=== PATIENT | female | born 1960 | race Caucasian/White ===

== ENCOUNTER 2016-07-16 09:44 | Outpatient (CLI) ==
[2016-07-16 10:07] LABS: BASOPHILS # (AUTO) 0.1 K/uL (0-0.2); BASOPHILS % (AUTO) 0.7 % (0.0-3.0); EOSINOPHILS # (AUTO) 0.3 K/ul (0.0-0.7); EOSINOPHILS % (AUTO) 3.3 % (0.0-7.0); HEMATOCRIT 39.7 % (37.0-47.0); HEMOGLOBIN 12.1 g/dl (12.0-16.0); IMMATURE GRANULOCYTE % (AUTO) 0.4 % (0.0-5.0); LYMPHOCYTES # (AUTO) 1.9 K/uL (0.60-3.4); LYMPHOCYTES % (AUTO) 23.6 (10.0-50.0); MEAN CORPUSCULAR HEMOGLOBIN 23.3 pg (27.0-31.0); MEAN CORPUSCULAR HGB CONC 30.5 (31.8-35.4); MEAN CORPUSCULAR VOLUME 76.3 fl (81.0-99.0); MONOCYTES # (AUTO) 0.5 K/uL (0.4-2.0); MONOCYTES % (AUTO) 6.5 (0-10); NEUTROPHILS # (AUTO) 5.3 K/ul (2.0-6.9); NEUTROPHILS % (AUTO) 65.5; PLATELET COUNT 440 10^3/uL (140-440); WHITE BLOOD COUNT 8.15 K/ul (4.6-10.2)
[2016-07-16 10:54] LABS: ALBUMIN 3.5 g/dL (3.4-5.0); ALBUMIN/GLOBULIN RATIO 0.88; ANION GAP 13.8; BILIRUBIN,TOTAL 0.19 mg/dL (0.00-1.20); BUN/CREATININE RATIO 12.37; CALCIUM 10.4 mg/dL (8.2-10.2); CHOL/HDL RATIO 3.3 (4.5-5.5); CREATININE 0.97 mg/dL (0.60-1.30); POTASSIUM 3.8 mmol/L (3.5-5.10); TOTAL PROTEIN 7.5 g/dL (6.4-8.2)
--- NOTE | 2016-07-16 17:18 | MRI ---
EXAM: Lumbar spine MRI without contrast. HISTORY: Back pain. COMPARISON: None. TECHNIQUE: Multiplanar, multisequence MR images were acquired of the lumbar spine without contrast. FINDINGS: The T12 vertebra is not well seen and evaluation for ribs cannot be done. For the purpos es of this dictation, the lowest five non-rib bearing vertebra are numbered L1 to L5. There is right gray curvature of the lower thoracic and lumbar spine centered at L2-3 and there is 1 cm rightward t ranslation of L2 with respect to L1, 4 mm leftward translation of L4 with respect to L3 and 3 mm lef tward translation of L5 with respect to L4. There is mild loss of the usual smooth lumbar lordosis and there is 1.5 mm retrolisthesis of L1 on L2 and L2 on L3, 2 mm degenerative anterolisthesis of L3 on L4, 4 mm anterolisthesis of L4 on L5 and 1.5 mm anterolisthesis of L5 on S1. The lumbar vertebr a are normal in height. Intrinsic bone marrow signal is mildly heterogeneous. There are ventral an d lateral osteophytes in the lower thoracic and lumbar spine. At T12-L1, there is osteophytosis wit h mild disc space narrowing, endplate irregularity and small chronic Schmorl's nodes that is greates t right laterally. At L1-2, there is osteophytosis with marked disc space narrowing, disc desiccati on and mild endplate irregularity with reactive marrow changes along the endplates. There is osteop hytosis with moderate to severe disc space narrowing that is asymmetric to the left at L2-3 with mil d left lateral degenerative endplate changes. There is disc desiccation at L3-4 and L4-5. Minor di sc space narrowing is present at both these levels and there is minor disc space narrowing right lat erally at L5-S1. Conus medullaris ends at L1-2 and has normal signal intensity. Canal diameter is developmentally narrow. The visualized liver and kidneys are unremarkable. There are no paravertebral masses. T12-L1: There is a dorsal spondylotic ridge that is asymmetric to the right with a probable small s uperimposed central disc protrusion. This minimally narrows the inferior right neural foramen. Venancio ateral hypertrophic facet arthropathy is present and there is minor left and mild to moderate right neural foraminal stenosis. There is no central canal stenosis. L1-2: There is a diffuse disc osteophyte complex and mild bilateral facet and ligamentum flavum hyp ertrophy. There is mild to moderate spinal stenosis and mild to moderate left and mild right neural foraminal stenosis. AP diameter of the thecal sac is 6.6 mm. L2-3: There is a dorsal spondylotic ridge that is asymmetric to the left which mildly effaces the v entral thecal sac and narrows the inferior left neural foramen with encroachment on the left L2 nerv e. Bilateral facet and ligamentum flavum hypertrophy is present and there is mild right and moderat e left neural foraminal stenosis. L3-4: There is anterolisthesis of L3 on L4 and moderate bilateral hypertrophic facet arthropathy an d ligamentum flavum hypertrophy. There is mild spinal stenosis and moderate bilateral foraminal leonides nosis. AP diameter of the thecal sac is 7.6 mm. L4-5: There is anterolisthesis of L4 on L5, a mild disc bulge and moderately severe bilateral hyper trophic facet arthropathy and ligamentum flavum hypertrophy. There is moderate spinal stenosis and moderate right and moderately severe left neural foraminal stenosis with encroachment on both L4 ner ves. AP diameter of the thecal sac is 6.3 mm. L5-S1: There is a small disc bulge with marginal osteophytes and mild bilateral facet arthropathy a nd ligamentum flavum hypertrophy. The thecal sac is mildly small at this level and measures 9.4 mm in AP diameter. There is moderate right neural foraminal stenosis and moderate stenosis at the entr y to the left neural foramen IMPRESSION: 1. Mild thoracolumbar dextroscoliosis with 1 cm rightward translation of L2 with respect to L1. 2. Mild L3-4 and L5-S1, mild to moderate L1-2 and moderate L4-5 spinal stenosis. 3. Mild to moderate lumbar degenerative spondylosis with 2 mm degenerative anterolisthesis of L3 on L4 and 4 mm anterolisthesis of L4 on L5. 4. Multilevel foraminal stenosis.
== END 2016-07-16 09:45 | disposition home or self-care (01) ==
LOC: RAD 09:44
PROVIDERS: ATTEND Nurse Practitioner Family
DX: M54.9 Dorsalgia, unspecified (principal); I99.9 Unspecified disorder of circulatory system; E78.2 Mixed hyperlipidemia; E11.9 Type 2 diabetes mellitus without complications
CPT/HCPCS: 36415; 80053; 80061; 83036; 84443; 85025

== ENCOUNTER 2016-07-18 12:26 | Outpatient (CLI) | END 2016-07-18 12:27 | disposition home or self-care (01) | LOC: CAR 12:26 | PROVIDERS: ATTEND Nurse Practitioner Family | DX: R06.02 Shortness of breath (principal) ==

== ENCOUNTER 2016-08-08 10:00 | Outpatient (CLI) ==
--- NOTE | 2016-08-21 08:18 | MAMMO ---
EXAM: Digital screening mammogram HISTORY: Screening mammogram COMPARISON: The outside study 07/14/2015 FINDINGS: Bilateral CC and MLO views of the breasts were performed digitally and demonstrate predom inantly fatty breast density (up to 25%). Stable well marginated nodule in the left breast is redemo nstrated. There is no abnormal nodule or calcification. There is no significant interval change. IMPRESSION: No new or suspicious nodule or calcification. Stable well marginated nodule in the lef t breast. RECOMMENDATION: Annual screening mammogram BIRADS category II: Benign findings
== END 2016-08-08 10:01 | disposition home or self-care (01) ==
LOC: RAD 10:00
PROVIDERS: ATTEND Nurse Practitioner Family
DX: Z12.31 Encounter for screening mammogram for malignant neoplasm of breast (principal); R94.6 Abnormal results of thyroid function studies; E83.52 Hypercalcemia
CPT/HCPCS: 36415; 82310; 84439; 84443

== ENCOUNTER 2016-08-08 11:18 | Outpatient (CLI) ==
[2016-08-08 15:20] LABS: CALCIUM 9.7 mg/dL (8.2-10.2)
== END 2016-08-08 11:19 | disposition home or self-care (01) ==
LOC: LAB 11:18
PROVIDERS: ATTEND Nurse Practitioner Family
DX: R94.6 Abnormal results of thyroid function studies (principal); E83.52 Hypercalcemia
CPT/HCPCS: 36415; 82310; 84439; 84443

== ENCOUNTER 2016-10-09 13:15 | Outpatient (CLI) ==
[2016-10-09 16:31] LABS: BASOPHILS # (AUTO) 0.1 K/uL (0-0.2); BASOPHILS % (AUTO) 1.1 % (0.0-3.0); EOSINOPHILS # (AUTO) 0.3 K/ul (0.0-0.7); EOSINOPHILS % (AUTO) 4.4 % (0.0-7.0); HEMOGLOBIN 11.8 g/dl (12.0-16.0); IMMATURE GRANULOCYTE % (AUTO) 0.4 % (0.0-5.0); LYMPHOCYTES # (AUTO) 1.9 K/uL (0.60-3.4); LYMPHOCYTES % (AUTO) 25.7 (10.0-50.0); MEAN CORPUSCULAR HEMOGLOBIN 21.5 pg (27.0-31.0); MEAN CORPUSCULAR HGB CONC 28.8 (31.8-35.4); MEAN CORPUSCULAR VOLUME 74.5 fl (81.0-99.0); MONOCYTES # (AUTO) 0.4 K/uL (0.4-2.0); MONOCYTES % (AUTO) 5.7 (0-10); NEUTROPHILS # (AUTO) 4.5 K/ul (2.0-6.9); NEUTROPHILS % (AUTO) 62.7; PLATELET COUNT 558 10^3/uL (140-440); WHITE BLOOD COUNT 7.23 K/ul (4.6-10.2)
[2016-10-09 17:07] LABS: ALBUMIN 3.5 g/dL (3.4-5.0); ALBUMIN/GLOBULIN RATIO 0.8; BILIRUBIN,TOTAL 0.26 mg/dL (0.00-1.20); BUN/CREATININE RATIO 11.57; CALCIUM 9.9 mg/dL (8.2-10.2); CHOL/HDL RATIO 3.4 (4.5-5.5); CREATININE 0.95 mg/dL (0.60-1.30); TOTAL PROTEIN 7.9 g/dL (6.4-8.2)
== END 2016-10-09 13:16 | disposition home or self-care (01) ==
LOC: LAB 13:15
PROVIDERS: ATTEND Emergency Medicine
DX: E11.9 Type 2 diabetes mellitus without complications (principal); E78.2 Mixed hyperlipidemia; R94.6 Abnormal results of thyroid function studies; M54.9 Dorsalgia, unspecified
CPT/HCPCS: 36415; 80053; 80061; 83036; 84443; 85025

== ENCOUNTER 2016-10-21 13:46 | Outpatient (CLI) ==
[2016-10-21 14:18] LABS: BASOPHILS # (AUTO) 0.1 K/uL (0-0.2); BASOPHILS % (AUTO) 0.8 % (0.0-3.0); EOSINOPHILS # (AUTO) 0.3 K/ul (0.0-0.7); EOSINOPHILS % (AUTO) 3.3 % (0.0-7.0); IMMATURE GRANULOCYTE % (AUTO) 0.4 % (0.0-5.0); LYMPHOCYTES # (AUTO) 2.6 K/uL (0.60-3.4); LYMPHOCYTES % (AUTO) 28.5 (10.0-50.0); MEAN CORPUSCULAR HEMOGLOBIN 21.8 pg (27.0-31.0); MEAN CORPUSCULAR HGB CONC 29.5 (31.8-35.4); MEAN CORPUSCULAR VOLUME 73.9 fl (81.0-99.0); MONOCYTES # (AUTO) 0.6 K/uL (0.4-2.0); MONOCYTES % (AUTO) 6.7 (0-10); NEUTROPHILS # (AUTO) 5.4 K/ul (2.0-6.9); NEUTROPHILS % (AUTO) 60.3; PLATELET COUNT 578 10^3/uL (140-440); RED BLOOD COUNT 5.95 10^6/ul (4.20-5.40); WHITE BLOOD COUNT 8.99 K/ul (4.6-10.2)
[2016-10-21 15:17] LABS: ALBUMIN 3.7 g/dL (3.4-5.0); ALBUMIN/GLOBULIN RATIO 0.71; ANION GAP 16.9; BILIRUBIN,TOTAL 0.19 mg/dL (0.00-1.20); BUN/CREATININE RATIO 11.34; CALCIUM 10.2 mg/dL (8.2-10.2); CHOL/HDL RATIO 3.8 (4.5-5.5); CREATININE 0.97 mg/dL (0.60-1.30); POTASSIUM 3.9 mmol/L (3.5-5.10); TOTAL PROTEIN 8.9 g/dL (6.4-8.2)
== END 2016-10-21 13:47 | disposition home or self-care (01) ==
LOC: LAB 13:46
PROVIDERS: ATTEND Nurse Practitioner Family
DX: E87.6 Hypokalemia (principal); R11.0 Nausea; I10 Essential (primary) hypertension; E11.9 Type 2 diabetes mellitus without complications; R20.0 Anesthesia of skin; G47.00 Insomnia, unspecified; M79.672 Pain in left foot; M79.671 Pain in right foot; M19.90 Unspecified osteoarthritis, unspecified site; E78.5 Hyperlipidemia, unspecified; E66.9 Obesity, unspecified; I73.9 Peripheral vascular disease, unspecified; K21.9 Gastro-esophageal reflux disease without esophagitis; Z86.718 Personal history of other venous thrombosis and embolism
CPT/HCPCS: 36415; 80053; 80061; 83036; 84443; 85025

== ENCOUNTER 2016-10-23 16:43 | Outpatient (CLI) ==
[2016-10-23 17:47] LABS: FERRITIN 13.6 ng/mL (4.63-204.00)
== END 2016-10-23 16:44 | disposition home or self-care (01) ==
LOC: LAB 16:43
PROVIDERS: ATTEND Nurse Practitioner Family
DX: D47.3 Essential (hemorrhagic) thrombocythemia (principal)
CPT/HCPCS: 36415; 82728; 83540; 83550; 84466

== ENCOUNTER 2016-10-28 16:12 | Observation (INO) ==
[2016-10-28 16:17] VITALS: BMI 50.0
--- NOTE | 2016-10-28 16:26 | ED.PDOC ---
General ED Provider: Dr. JANET ANTONIO Chief Complaint: Chest Pain Stated Complaint: 1 week; chest pain, weakness Time Seen by Physician: 16:23 Mode of Arrival: Walk-In Information Source: Patient Exam Limitations: No limitations Primary Care Provider: JIA FERRARA Nursing and Triage Documentation Reviewed and Agree: Yes Review of Systems - Review Of Systems Constitutional: Reports: Malaise, Weakness Eyes: Reports: No symptoms Respiratory: Reports: Cough Cardiac: Reports: Chest pain (heaviness approx 1 week ) GI: Reports: Abdominal pain (epigastric), Nausea : Reports: No symptoms Endocrine: Reports: Excessive sweating, Intolerance to heat All Other Systems: Reviewed and Negative Past Medical History - Past Medical History Previously Healthy: No (Numerous problems; vascular surgeries bilateral LEs) Endocrine: Reports: DM 2 Cardiovascular: Reports: Other (vascular insufficiency bilat LEs) Respiratory: Reports: None Hematological: Reports: None Gastrointestinal: Reports: None Genitourinary: Reports: None Neuro/Psych: Reports: CVA Musculoskeletal: Reports: None Cancer: Reports: Colon Last Menstrual Period: NONE - Surgical History General Surgical History: Reports: Cholecystectomy, Unknown (Colon CA; multiple LE vascular surgeries) - Family History Family History: Reports: Unknown - Social History Smoking Status: Never smoker Hx Substance Use: No Alcohol Screening: None Physical Exam - Physical Exam Appearance: Well-appearing, Obese Eyes: MILLIE, EOMI ENT: Nose normal, Oropharynx normal Neck: Supple Respiratory: Airway patent, Breath sounds clear, Breath sounds equal, Respirations nonlabored Cardiovascular: RRR, Pulses normal GI/: Soft, Bowel sounds normal, Tender (epigastric region only; no reboung) Musculoskeletal: Normal strength, ROM intact Skin: Warm, Dry Neurological: Sensation intact, Motor intact, Alert, Oriented Psychiatric: Affect appropriate, Mood appropriate Interpretation - EKG Interpretation Time of EKG #1: 16:25 Rate: Normal Rhythm: Sinus Ectopy: None Interpretation: RBBB; no apparent acute changes Critical Care Note - Critical Care Note Total Time (mins): 40 Course - Course Hematology/Chemistry: 10/28/16 16:30 10/28/16 16:30 Orders, Labs, Meds: Lab Review 10/28/16 16:30 WBC 8.56 RBC 5.54 H Hgb 12.1 Hct 40.8 MCV 73.6 L MCH 21.8 L MCHC 29.7 L RDW Coeff of Cathy 17.7 H Plt Count 543 H Immature Gran % (Auto) 0.4 Neut % (Auto) 54.9 Lymph % (Auto) 32.2 Kay % (Auto) 7.4 Eos % (Auto) 4.3 Baso % (Auto) 0.8 Immature Gran # (Auto) 0.0 Neut # 4.7 Lymph # 2.8 Kay # 0.6 Eos # 0.4 Baso # 0.1 D-Dimer (Manual) 465.10 Sodium 142 Potassium 3.3 L Chloride 107 Carbon Dioxide 20 L Anion Gap 18.3 BUN 10 Creatinine 1.07 Estimated GFR (MDRD) 53.00 BUN/Creatinine Ratio 9.34 Glucose 145 H Calcium 9.3 Total Bilirubin 0.18 AST 19 ALT 18 Alkaline Phosphatase 86 Troponin I < 0.0100 Total Protein 8.2 Albumin 3.5 Globulin 4.7 Albumin/Globulin Ratio 0.74 TSH 0.711 Orders Category Date Time Status EKG-(IP & OP ONLY) Stat CARDIO 10/28/16 17:40 Completed INTAKE & OUTPUT Q8HR CARE 10/28/16 18:04 Active CBC W/ AUTO DIFF Stat LAB 10/28/16 16:30 Completed COMPREHENSIVE METABOLIC PANEL Stat LAB 10/28/16 16:30 Completed D-DIMER Stat LAB 10/28/16 16:30 Completed THYROID STIMULATING HORMONE Stat LAB 10/28/16 16:30 Completed TROPONIN I Stat LAB 10/28/16 16:30 Completed Albuterol Sulfate [Proair Hfa] MEDS 10/28/16 18:30 Ordered DOSE puff IH PRN Canagliflozin [Invokana] MEDS 10/29/16 09:00 Ordered 300 mg PO DAILY Cilostazol [Pletal] MEDS 10/28/16 21:00 Ordered 100 mg PO BID Dicyclomine HCl [Bentyl] MEDS 10/28/16 21:00 Ordered 10 mg PO TID Escitalopram Oxalate [Escitalopram Oxalate] MEDS 10/29/16 09:00 Ordered 20 mg PO DAILY Esomeprazole Magnesium [Nexium] MEDS 10/29/16 09:00 Ordered 40 mg PO DAILY Fenofibrate [Triglide] MEDS 10/29/16 09:00 Ordered 160 mg PO DAILY Gabapentin [Gabapentin] MEDS 10/28/16 21:00 Ordered 600 mg PO TID Hydrocodone Bit/Acetaminophen [[place] 10-325] MEDS 10/28/16 21:00 Ordered DOSE tab PO BID Insulin Degludec [Tresiba Flextouch U-200] MEDS 10/29/16 09:00 Ordered 20 unit SQ DAILY Metformin HCl [Glucophage] MEDS 10/28/16 21:00 Ordered 500 mg PO BID Pentoxifylline [Trental] MEDS 10/28/16 21:00 Ordered 400 mg PO Q8HR Promethazine HCl [Phenergan Tab] MEDS 10/28/16 18:30 Ordered 25 mg PO every6 hours PRN Rivaroxaban [Xarelto] MEDS 10/29/16 09:00 Ordered 20 mg PO DAILY Ropinirole HCl [Ropinirole HCl] MEDS 10/28/16 21:00 Ordered 0.5 mg PO BEDTIME Simvastatin [Simvastatin] MEDS 10/28/16 21:00 Ordered 20 mg PO BEDTIME RESUSCITATION STATUS Routine OTHERS 10/28/16 17:58 Ordered CHEST, 1V AP ONLY Stat RADS 10/28/16 16:26 Completed Medications Generic Name Dose Route Start Last Admin Trade Name Freq PRN Reason Stop Dose Admin Acetaminophen/Hydrocodone Bitart tab 10/28/16 21:00 [place] 10-325 PO BID OLIVER Albuterol Sulfate puff 10/28/16 18:30 Proair Hfa IH PRN OLIVER Cilostazol 100 mg 10/28/16 21:00 Pletal PO BID OLIVER Dicyclomine HCl 10 mg 10/28/16 21:00 Bentyl PO TID [facility] Fenofibrate 160 mg 10/29/16 09:00 Triglide PO DAILY OLIVER Metformin HCl 500 mg 10/28/16 21:00 Glucophage PO BID OLIVER Non-Formulary Medication 20 mg 10/29/16 09:00 Escitalopram Oxalate [Escitalopram Oxalate] PO DAILY OLIVER Non-Formulary Medication 40 mg 10/29/16 09:00 Esomeprazole Magnesium [Nexium] PO DAILY OLIVER Non-Formulary Medication 600 mg 10/28/16 21:00 Gabapentin [Gabapentin] PO TID OLIVER Non-Formulary Medication 20 mg 10/29/16 09:00 Rivaroxaban [Xarelto] PO DAILY OLIVER Non-Formulary Medication 0.5 mg 10/28/16 21:00 Ropinirole Hcl [Ropinirole Hcl] PO BEDTIME OLIVER Non-Formulary Medication 20 mg 10/28/16 21:00 Simvastatin [Simvastatin] PO BEDTIME OLIVER Non-Formulary Medication 300 mg 10/29/16 09:00 Canagliflozin [Invokana] PO DAILY OLIVER Non-Formulary Medication 20 unit 10/29/16 09:00 Insulin Degludec [Tresiba Flextouch U-200] SQ DAILY OLIVER Pentoxifylline 400 mg 10/28/16 21:00 Trental PO Q8HR OLIVER Promethazine HCl 25 mg 10/28/16 18:30 Phenergan Tab PO every6 hours PRN OLIVER Vital Signs: Temp Pulse Resp BP Pulse Ox 10/28/16 16:12 98.9 F 127 H 22 176/84 H 92 L TATE Risk Score TATE Risk Score: Risk Score Odds of by 30D 0 0.1 (0.1-0.2) 1 0.3 (0.2-0.3) 2 0.4 (0.3-0.5) 3 0.7 (0.6-0.9) 4 1.2 (1.0-1.5) 5 2.2 (1.9-2.6) 6 3.0 (2.5-3.6) 7 4.8 (3.8-6.1) Departure - Departure Time of Disposition: 18:13 Disposition: PLACED OBSERVATION Discharge Problem: Chest pain Condition: Stable Pt referred to PMD for follow-up: Yes Allergies/Adverse Reactions: Allergies Penicillins Allergy (Severe, Verified 10/28/16 16:17) throat swells Patient will notify drugstore Home Medications: Ambulatory Orders Albuterol Sulfate [Proair Hfa] 8.5 gm IH PRN 07/15/16 Diphenhydramine HCl [Allergy Relief] 25 mg PO PRN 07/15/16 Hydrocodone/Acetaminophen [Hydrocodon-Acetaminophn 10-325] 1 each PO BID Insulin Degludec [Tresiba Flextouch U-200] 20 unit SQ DAILY 10/28/16
[2016-10-28 16:36] LABS: BASOPHILS # (AUTO) 0.1 K/uL (0-0.2); BASOPHILS % (AUTO) 0.8 % (0.0-3.0); EOSINOPHILS # (AUTO) 0.4 K/ul (0.0-0.7); EOSINOPHILS % (AUTO) 4.3 % (0.0-7.0); HEMATOCRIT 40.8 % (37.0-47.0); HEMOGLOBIN 12.1 g/dl (12.0-16.0); IMMATURE GRANULOCYTE % (AUTO) 0.4 % (0.0-5.0); LYMPHOCYTES # (AUTO) 2.8 K/uL (0.60-3.4); LYMPHOCYTES % (AUTO) 32.2 (10.0-50.0); MEAN CORPUSCULAR HEMOGLOBIN 21.8 pg (27.0-31.0); MEAN CORPUSCULAR HGB CONC 29.7 (31.8-35.4); MEAN CORPUSCULAR VOLUME 73.6 fl (81.0-99.0); MONOCYTES # (AUTO) 0.6 K/uL (0.4-2.0); MONOCYTES % (AUTO) 7.4 (0-10); NEUTROPHILS # (AUTO) 4.7 K/ul (2.0-6.9); NEUTROPHILS % (AUTO) 54.9; PLATELET COUNT 543 10^3/uL (140-440); RED BLOOD COUNT 5.54 10^6/ul (4.20-5.40); WHITE BLOOD COUNT 8.56 K/ul (4.6-10.2)
--- NOTE | 2016-10-28 16:49 | DI ---
EXAM: One-view chest HISTORY: Chest pain TECHNIQUE: Single frontal view the chest was obtained. FINDINGS: The heart is normal size. Lungs are clear. Low lung volumes are seen. The pulmonary va sculature appears normal. Postoperative changes of fusion are seen within the lower cervical spine. IMPRESSION: No active cardiopulmonary disease.
[2016-10-28 17:05] LABS: ALANINE AMINOTRANSFERASE 18 U/L (12-78); ALBUMIN 3.5 g/dL (3.4-5.0); ALBUMIN/GLOBULIN RATIO 0.74; ALKALINE PHOSPHATASE 86 U/L (42-98); ANION GAP 18.3; ASPARTATE AMINO TRANSFERASE 19 U/L (15-37); BILIRUBIN,TOTAL 0.18 mg/dL (0.00-1.20); BLOOD UREA NITROGEN 10 mg/dL (7-18); BUN/CREATININE RATIO 9.34; CALCIUM 9.3 mg/dL (8.2-10.2); CARBON DIOXIDE 20 mmol/L (21-32); CHLORIDE 107 mmol/L (98-107); CREATININE 1.07 mg/dL (0.60-1.30); GLUCOSE 145 mg/dL (70-110); POTASSIUM 3.3 mmol/L (3.5-5.10); SODIUM 142 mmol/L (136-145); TOTAL PROTEIN 8.2 g/dL (6.4-8.2)
[2016-10-28] MEDS ORDERED: PROAIR HFA IH SCH (18:30)
[2016-10-28] MEDS ORDERED: PHENERGAN TAB PO SCH (18:30)
[2016-10-28] MEDS ORDERED: NORCO 10-325 PO SCH (21:00)
[2016-10-28] MEDS ORDERED: NON-FORMULARY MEDICATION (Gabapentin [Gabapentin] 600 MG) PO SCH (21:00)
[2016-10-28] MEDS ORDERED: TRENTAL PO SCH (21:00)
[2016-10-28] MEDS ORDERED: PLETAL PO SCH (21:00)
[2016-10-28] MEDS ORDERED: BENTYL PO SCH (21:00)
[2016-10-28] MEDS ORDERED: GLUCOPHAGE PO SCH (21:00)
[2016-10-28] MEDS ORDERED: ROPINIROLE HCL 0.5 MG PO SCH (21:00)
[2016-10-28] MEDS ORDERED: NON-FORMULARY MEDICATION (Simvastatin [Simvastatin] 20 MG) PO SCH ×22 (21:00)
[2016-10-28] MEDS ORDERED: NON-FORMULARY MEDICATION (Albuterol Sulfate [Proair Hfa] 2 PUFF) IH PRN ×22 (22:04)
[2016-10-28] MEDS ORDERED: DIPHENHYDRAMINE HCL 25 MG PO PRN (22:04)
[2016-10-28] MEDS ORDERED: PROMETHAZINE HCL 25 MG PO PRN (22:04)
[2016-10-28] MEDS ORDERED: HYDROCODONE BIT PO SCH (22:10)
[2016-10-28] MEDS ORDERED: ACETAMINOPHEN PO SCH ×2 (22:10→22:30)
[2016-10-28] MEDS ORDERED: HYDROCODONE PO SCH (22:30)
[2016-10-28] MEDS ORDERED: [UNRECOGNIZED DRUG - OTHER] PO SCH (22:30)
[2016-10-29] MEDS ORDERED: PENTOXIFYLLINE 400 MG PO SCH (05:00)
[2016-10-29] MEDS ORDERED: GI COCKTAIL PO STA (08:06)
[2016-10-29] MEDS ORDERED: ZOFRAN 4 MG/2 ML IVP PRN (08:08)
[2016-10-29 08:37] LABS: CHOL/HDL RATIO 3.4 (4.5-5.5)
[2016-10-29] MEDS: CARAFATE PO SCH ×4 (08:37→22:34)
[2016-10-29] MEDS: NON-FORMULARY MEDICATION (Canagliflozin [Invokana] 300 MG) PO SCH (08:39)
[2016-10-29] MEDS: FENOFIBRATE 160 MG PO SCH (08:40)
[2016-10-29] MEDS: NON-FORMULARY MEDICATION (Gabapentin [Gabapentin] 600 MG) PO SCH ×3 (08:40→22:35)
[2016-10-29] MEDS: NON-FORMULARY MEDICATION (Escitalopram Oxalate [Lexapro] 20 MG) PO SCH ×22 (08:41)
[2016-10-29] MEDS: NON-FORMULARY MEDICATION (Metformin Hcl [Metformin Hcl] 500 MG) PO SCH ×2 (08:41→17:09)
[2016-10-29] MEDS: DICYCLOMINE HCL 10 MG PO SCH ×3 (08:41→22:36)
[2016-10-29] MEDS: NON-FORMULARY MEDICATION (Esomeprazole Magnesium [Nexium] 40 MG) PO SCH ×22 (08:42)
[2016-10-29] MEDS: NON-FORMULARY MEDICATION (Rivaroxaban [Xarelto] 20 MG) PO SCH (08:42)
[2016-10-29] MEDS: [UNRECOGNIZED DRUG - OTHER] PO SCH ×2 (08:43→22:35)
[2016-10-29] MEDS: CILOSTAZOL 100 MG PO SCH ×2 (08:43→22:36)
[2016-10-29] MEDS: HYDROCODONE PO SCH ×2 (08:43→22:35)
[2016-10-29] MEDS: INSULIN DEGLUDEC 25 UNIT SQ SCH (08:43)
[2016-10-29] MEDS: ACETAMINOPHEN PO SCH ×2 (08:43→22:35)
[2016-10-29] MEDS ORDERED: TRIGLIDE PO SCH (09:00)
[2016-10-29] MEDS ORDERED: INSULIN DEGLUDEC 20 UNIT SQ SCH (09:00)
[2016-10-29] MEDS ORDERED: NON-FORMULARY MEDICATION (Esomeprazole Magnesium [Nexium] 40 MG) PO SCH ×22 (09:00)
[2016-10-29] MEDS ORDERED: NON-FORMULARY MEDICATION (Canagliflozin [Invokana] 300 MG) PO SCH (09:00)
[2016-10-29] MEDS ORDERED: NON-FORMULARY MEDICATION (Escitalopram Oxalate [Escitalopram Oxalate] 20 MG) PO SCH (09:00)
[2016-10-29] MEDS ORDERED: NON-FORMULARY MEDICATION (Rivaroxaban [Xarelto] 20 MG) PO SCH (09:00)
[2016-10-29] MEDS ORDERED: MORPHINE 2 MG/ML SYRINGE IVP STA (10:27)
[2016-10-29 11:05] LABS: CREATINE KINASE 75 U/L
[2016-10-29] MEDS ORDERED: POTASSIUM CHL 10% ORAL SOL PO STA (11:30)
[2016-10-29] MEDS: PENTOXIFYLLINE 400 MG PO SCH ×2 (12:10→22:37)
[2016-10-29] MEDS ORDERED: BENADRYL ONE (19:13)
[2016-10-29] MEDS ORDERED: NON-FORMULARY MEDICATION (Simvastatin [Simvastatin] 20 MG) PO SCH ×22 (21:00)
[2016-10-29] MEDS ORDERED: NON-FORMULARY MEDICATION (Ropinirole Hcl [Requip] 0.5 MG) PO SCH (21:00)
[2016-10-29] MEDS ORDERED: HYDROCODONE BIT PO SCH (22:04)
[2016-10-29] MEDS ORDERED: ACETAMINOPHEN PO SCH (22:04)
[2016-10-30] MEDS: PENTOXIFYLLINE 400 MG PO SCH ×2 (04:52→12:01)
[2016-10-30] MEDS: CARAFATE PO SCH ×2 (05:37→10:15)
[2016-10-30] MEDS: NON-FORMULARY MEDICATION (Esomeprazole Magnesium [Nexium] 40 MG) PO SCH ×22 (05:40)
[2016-10-30] MEDS ORDERED: ATROPINE SULFATE PFS ONE (07:10)
[2016-10-30] MEDS ORDERED: DOBUTAMINE 250 ML IV ONE (07:10)
[2016-10-30 07:16] LABS: BASOPHILS # (AUTO) 0.1 K/uL (0-0.2); BASOPHILS % (AUTO) 0.9 % (0.0-3.0); EOSINOPHILS # (AUTO) 0.3 K/ul (0.0-0.7); EOSINOPHILS % (AUTO) 4.7 % (0.0-7.0); HEMATOCRIT 40.6 % (37.0-47.0); HEMOGLOBIN 11.8 g/dl (12.0-16.0); IMMATURE GRANULOCYTE % (AUTO) 0.6 % (0.0-5.0); LYMPHOCYTES # (AUTO) 2.2 K/uL (0.60-3.4); LYMPHOCYTES % (AUTO) 31.1 (10.0-50.0); MEAN CORPUSCULAR HEMOGLOBIN 21.7 pg (27.0-31.0); MEAN CORPUSCULAR HGB CONC 29.1 (31.8-35.4); MEAN CORPUSCULAR VOLUME 74.6 fl (81.0-99.0); MONOCYTES # (AUTO) 0.5 K/uL (0.4-2.0); MONOCYTES % (AUTO) 7.2 (0-10); NEUTROPHILS # (AUTO) 3.9 K/ul (2.0-6.9); NEUTROPHILS % (AUTO) 55.5; PLATELET COUNT 477 10^3/uL (140-440); RED BLOOD COUNT 5.44 10^6/ul (4.20-5.40); WHITE BLOOD COUNT 7.05 K/ul (4.6-10.2)
[2016-10-30 07:30] LABS: ALBUMIN 3.5 g/dL (3.4-5.0); ALBUMIN/GLOBULIN RATIO 0.83; ANION GAP 15.9; BILIRUBIN,TOTAL 0.23 mg/dL (0.00-1.20); BUN/CREATININE RATIO 11.57; CALCIUM 9.2 mg/dL (8.2-10.2); CREATININE 0.95 mg/dL (0.60-1.30); POTASSIUM 3.9 mmol/L (3.5-5.10); TOTAL PROTEIN 7.7 g/dL (6.4-8.2)
--- NOTE | 2016-10-30 10:03 | NM ---
EXAM: Myocardial perfusion imaging HISTORY: Chest pain COMPARISON: None. TECHNIQUE: Patient was injected 4 mCi of thallium 201 chloride intravenously while at rest. SPECT i maging of the heart was acquired. Patient was stressed using dobutamine protocol and injected 25.8 mCi of Tc99m Sestamibi intravenously. Another SPECT imaging of the heart was acquired. Gated cardi ac study was also performed. FINDINGS: Post stress images show normal left ventricular cavity size. Radioisotope distribution is homogeneous in the left ventricle myocardium. No evidence of dobutamine-induced reversible ischemi a. No fixed defect is seen to suggest myocardial infarction. Left ventricular ejection fraction is 60% and wall motion is normal. IMPRESSION: 1. SPECT myocardial imaging at stress and rest is normal. 2. Normal cardiac systolic function. 3. Normal wall motion
--- NOTE | 2016-10-30 10:08 | DOBSTECHST ---
Date of Test: 10/30/16 Ordering Physician: GRUPO TEAGUE Reason for Examination: CHEST PAIN Current Medications: XARELTO, TRIGLIDE, LEXAPRO, PLETAL, PROAIR Height: 66" Weight: 310 LBS Target Heart Rate: 139/164 ST Segment Stage Time HR BPM BP mmhg Rhythm +/- Up Down Comments/Symptoms Control Sitting 87 140/80 SR X NONE Dobutamine 250mg/D5W 5cmg/KG/mn 10cmg/KG/mn 3" 114 150/75 SR X NONE 15cmg/KG/mn 1:14 141 SR X NONE 20cmg/KG/mn 25cmg/KG/mn 30cmg/KG/mn 35cmg/KG/mn 40cmg/KG/mn Time: 2" HR B/P Time: 6" HR B/P Time: 9" HR B/P Recovery 127 130/70 Recovery 110 130/75 Recovery 100 Total Time: 4:14 Maximum Heart Rate Reached: 141 __ Interpretation: 1. NO EVIDENCE OF ISCHEMIA BY ST-T WAVE 2. NO CHEST PAIN OR DISCOMFORT NORMAL LEFT VENTRICULAR CONTRACTILITY--RESTING AND WITH DOBUTAMINE INFUSION THALLIUM REPORT [facility] FOLLOW [facility]
[2016-10-30] MEDS: NON-FORMULARY MEDICATION (Metformin Hcl [Metformin Hcl] 500 MG) PO SCH (10:10)
[2016-10-30] MEDS: NON-FORMULARY MEDICATION (Canagliflozin [Invokana] 300 MG) PO SCH (10:12)
[2016-10-30] MEDS: NON-FORMULARY MEDICATION (Escitalopram Oxalate [Lexapro] 20 MG) PO SCH ×22 (10:13)
[2016-10-30] MEDS: DICYCLOMINE HCL 10 MG PO SCH (10:13)
[2016-10-30] MEDS: CILOSTAZOL 100 MG PO SCH (10:13)
[2016-10-30] MEDS: NON-FORMULARY MEDICATION (Rivaroxaban [Xarelto] 20 MG) PO SCH (10:14)
[2016-10-30] MEDS: NON-FORMULARY MEDICATION (Gabapentin [Gabapentin] 600 MG) PO SCH (10:14)
[2016-10-30] MEDS: [UNRECOGNIZED DRUG - OTHER] PO SCH (10:14)
[2016-10-30] MEDS: ACETAMINOPHEN PO SCH (10:14)
[2016-10-30] MEDS: FENOFIBRATE 160 MG PO SCH (10:14)
[2016-10-30] MEDS: HYDROCODONE PO SCH (10:14)
[2016-10-30] MEDS: INSULIN DEGLUDEC 25 UNIT SQ SCH (10:15)
--- NOTE | 2016-10-30 10:24 | CONS ---
DATE OF CONSULTATION: 10/29/16 REASON FOR CONSULTATION: Chest pain HISTORY OF PRESENT ILLNESS: The patient is a 56 year old white female admitted with mid substernal chest pain, nausea off and on for past couple of days. She described discomfort as more like a heaviness. It comes at any time and leaves. Non-exertional at times she has heart palpitations. She gives history of having chemical stress test in the past but doesn't remember when maybe a couple of years ago which was reported as normal and very likely done in one of the [facility]. REVIEW OF SYSTEMS: CONSTITUTIONAL: No night sweats. Fatigue with minimal exertion. No fever or chills. HEENT: Eyes: No visual changes. No eye pain. No eye discharge. ENT: No runny nose. No epistaxis. No sinus pain. No sore throat. No odynophagia. No ear pain. No congestion. RESPIRATORY: No cough, no congestion. No hemoptysis. CARDIOVASCULAR: No angina symptoms. No CHF symptoms. No atypical chest pain for CAD. No palpitations. No shortness of breath. Chest pain as described above. Requires two pillows for respiratory comfort. GASTROINTESTINAL: No abdominal pain. No nausea or vomiting. No diarrhea or constipation. No hematemesis. No hematochezia. GENITOURINARY: No urgency. No frequency. No dysuria. No hematuria. No obstructive symptoms. No discharge. No pain. No significant abnormal bleeding. MUSCULOSKELETAL: No musculoskeletal pain. No joint swelling. Generalized osteoarthritis pain. NEUROLOGICAL: Headache. No neck pain. No syncope. No seizures. No dizziness. PSYCHIATRIC: Not anxious. No depression. No suicidal thoughts. No homicidal thoughts. SKIN: No rash. No lesions. No wounds. Warm. Right neck , right knee and Abdomen wounds. ENDOCRINE: No unexplained weight loss. No weight gain. HEMATOLOGIC/LYMPHATIC: No anemia. No purpura. No petechiae. No prolonged or excessive bleeding. No palpable lymph nodes. MEDICATIONS: Hydrocodone 10-325mg twice a day Tresiba 25 unit SUBCUT daily Requip 0.5mg PO daily Invokana 300mg PO daily Nexium 40mg PO QAM Xarelto 20mg PO daily Fenofibrate 160mg PO daily Pletal 400mg PO Q 8 hours Metformin 500mg twice day Gabapentin 600mg PO three times a day ProAir HFA two puffs Q 4 hours Promethazine 25mg Q 6 hours ALLERGIES: Penicillins PAST MEDICAL HISTORY/PAST SURGICAL HISTORY: Vascular insufficiency with status post multiple surgeries on both lower extremities by Dr. Parks, scar of surgery is present in both legs Morbid obesity Sleep apnea Reflux disease Dyslipidemia Neuropathy GERD Diabetes Mellitus, type 2 Anxiety Cholecystectomy C of the colon Non-compliance SOCIAL/PERSONAL/FAMILY HISTORY: The patient is single. Non-smoker, Drinks occasionally and does all activity of daily living. Family History: Mother 04-30 CVA, Diabetes mellitus, hypertension and coronary artery disease. Grandfather Coronary artery disease and Brother Diabetes Mellitus. PHYSICAL EXAMINATION: GENERAL: The patient is oriented to time, place and person VITAL SIGNS: Temperature 98, pulse 83,. respiratory rate 122/65 and oxygen saturation 94%. Weighs more than 300 pounds. 5'6 so BMI is more than 50. HEENT: Head normocephalic, atraumatic. Eyes: Extraocular muscles are intact. Pupils are equal, round and reactive to light and accommodation. Ears: No lesions. Nose appeared normal. Throat: No exudate or erythema. NECK: Supple. No JVP, no carotid bruit. No lymphadenopathy or thyromegaly. LUNGS: Decreased breath sounds but Clear to auscultation. Percussion note normal. Chest symmetrical. HEART: S1, S2, no S3. Grade I to II/ systolic murmurs. No cyanosis or clubbing. No ascites. Pulses: Dorsalis pedis and posterior tibial pulses +1 to +2 both sides. PMI not palpable on auscultation. ABDOMEN: Soft. Nontender. Bowel sounds active. No CVA tenderness. No mass felt. EXTREMITIES: Trace edema. Full range of motion of all extremities, equal. Tibial pulse on the right side unable to feel any pulse on the left but both extremities are warm. Scars from the surgeries noted medially on both lower extremities. NEUROLOGIC: No focal deficit. Cranial nerves II through XII are grossly intact. No headache, no double vision or headache. SKIN: Not dry. Intact. Turgor - normal. LYMPHATIC: No palpable lymph nodes/no lymphedema. MUSCULOSKELETAL: Normal joints with no swelling. Muscle tone is normal. LABS: Chest x-ray no active cardiopulmonary disease. Cardiac markers x1 are within normal limit. WBC 8.56, hgb 12.1, hct 40.8 and plt count 543. Sodium 142, potassium 3.3, chloride 107, bicarb 20, BUN 10, GFR 53, creatinine 1.07 and glucose 145. ASSESSMENT: 1. Chest pain, etiology unknown with multiple coronary artery disease risk factors like Morbid obesity, sedentary lifestyle. 2. History of Atherosclerotic disease 3. Diabetes Mellitus 4. Hypertension 5. Dyslipidemia 6. Family History of heart disease 7. Peripheral arterial disease RECOMMENDATION: 1. Will do echocardiogram to evaluated LV function 2. Continue Telemetry 3. Continue serial EKG 4. Continue to monitor cardiac markers 5. Counseling for weight loss done to the patient 6. The patient's lipid profile is acceptable 7. A1c is 6.5 which is acceptable. 8. Mostly agreed with most of the medications at present time. 9. Will do Dobutamine Stress Echo Sestamibi in the morning 10. The patient's EKG is sinus rhythm and no acute changes 11. Telemetry strips are sinus rhythm, no ST-T wave changes 12. Medical condition stable Will follow. Thanks for referral. GEOFFREY
[2016-10-30 10:57] VITALS: BP 141/97; TEMP 98.1
--- NOTE | 2016-10-30 13:41 | CONS ---
DATE OF SERVICE: 10/30/16 CONSULT FOLLOWUP SUBJECTIVE: The patient is a 56 year old white female seen on consultation for chest pain. Today the patient doesn't have any chest pain. REVIEW OF SYSTEMS: CONSTITUTIONAL: No night sweats. No fatigue, malaise, lethargy. No fever or chills. HEENT: Eyes: No visual changes. No eye pain. No eye discharge. ENT: No runny nose. No epistaxis. No sinus pain. No sore throat. No odynophagia. No ear pain. No congestion. RESPIRATORY: No cough, no congestion. No hemoptysis. CARDIOVASCULAR: No angina symptoms. No CHF symptoms. No atypical chest pain for CAD. No palpitations. No shortness of breath. GASTROINTESTINAL: No abdominal pain. No nausea or vomiting. No diarrhea or constipation. No hematemesis. No hematochezia. GENITOURINARY: No urgency. No frequency. No dysuria. No hematuria. No obstructive symptoms. No discharge. No pain. No significant abnormal bleeding. MUSCULOSKELETAL: No musculoskeletal pain. No joint swelling. No arthritis. NEUROLOGICAL: No headache. No neck pain. No syncope. No seizures. No dizziness. PSYCHIATRIC: Not anxious. No depression. No suicidal thoughts. No homicidal thoughts. SKIN: No rash. No lesions. No wounds. ENDOCRINE: No unexplained weight loss. No weight gain. HEMATOLOGIC/LYMPHATIC: No anemia. No purpura. No petechiae. No prolonged or excessive bleeding. No palpable lymph nodes. PHYSICAL EXAMINATION: GENERAL: The patient is oriented to time, place and person. VITAL SIGNS: Temperature 98, pulse 86, respiratory rate 16, blood pressure 140/ 85 and pulse ox 93%. HEENT: Head normocephalic, atraumatic. Eyes: Extraocular muscles are intact. Pupils are equal, round and reactive to light and accommodation. Ears: No lesions. Nose appeared normal. Throat: No exudate or erythema. NECK: Supple. No JVD, no carotid bruit. No lymphadenopathy or thyromegaly. LUNGS: Decreased breath sounds but clear to auscultation. Percussion note normal. Chest symmetrical. HEART: S1, S2, no S3. Grade II/ systolic murmurs. No cyanosis or clubbing. No ascites. Pulses: Dorsalis pedis and posterior tibial pulses +1 to +2 both sides. ABDOMEN: Soft. Nontender. Bowel sounds active. No CVA tenderness. No mass felt. EXTREMITIES: No edema. Full range of motion of all extremities, equal. NEUROLOGIC: No focal deficit. Cranial nerves II through XII are grossly intact. No headache, no double vision or headache. SKIN: Not dry. Intact. Turgor - normal. LYMPHATIC: No palpable lymph nodes/no lymphedema. MUSCULOSKELETAL: Normal joints with no swelling. Muscle tone is normal. LABS: Hgb 12.1, hct 40m, WBC 8,500 normal differential, creatinine 1, BUN 10, Potassium 3.3, TSH normal. EKG sinus rhythm no acute changes, cardiac markers are negative. Telemetry strips are examined sinus rhythm, No ST-T wave changes. Echocardiogram done LVH and normal LV contractility and normal valves. Dobutamine Stress echo negative for any ischemia. The patient had a thallium scan the report pending. ASSESSMENT: 1. Chest pain, etiology unknown so far no evidence of any acute marker event. Thallium report pending 2. Massive obesity 3. Severe peripheral arterial disease, strong family history of heart disease 4. Diabetes Mellitus 5. Dyslipidemia RECOMMENDATIONS: 1. Agreed with the whole list of medications 2. Very well managed 3. Non-HDL is less than 100 and that should be the goal 4. The patient's A1c is 6.5 acceptable 5. Counseling for weight loss diet done 6. Depending upon patient's Thallium report patient may or may not be a candidate for cardiac rehab Thanks for referral. Will follow. ADDENDUM: The patient had Dobutamine Stress Echo Thallium. Thallium scan was reported as no reservable ischemia, normal LV contractility. The patient's Dobutamine Stress echo was negative for ischemia also. The patient was explained about these finding. She was instructed that this test would be practically good almost 9 out of 10 times that times it maybe falsely negative. So if she continues to have pain, chest tightness or chest discomfort to go to the emergency room. GEOFFREY
--- NOTE | 2016-10-31 13:40 | ECHO2D ---
Date of Exam: 10/30/16 Ordering Physician: GRUPO BRAUN Reason for Echo: CHEST PAIN, PAD M-Mode Normal Adult Results LV Dimensions Normal Adult Results AoV Opening excursions >1.6 >1.6 LVEDD-base- 3.5-5.8 4.5 Ao root dimensions 2.0-3.7 3.6 LVESD-base- 3.1-4.6 L. Atrium dimensions 1.9-3.8 4.8 Post. Wall thickness 0.8-1.1 1.2 IV septum (thickness) 0.7-1.2 1.2 Post. Wall excursion 0.72-1.3 NORMAL Septal motion NORMAL Systolic motion R. Ventricular cavity 1.5-2.0 NORMAL LVEF 60% 61% Paradoxical septal wall motion NORMAL 2-D : ENLARGED LEFT ATRIAL CAVITY--NORMAL VALVES--NORMAL LEFT VENTRICULAR CONTRACTILITY--NO EFFUSION, NO THROMBUS, NORMAL LEFT VENTRICLE SIZE M-MODE: MV: NORMAL AV: NORMAL TV: NORMAL PV: CHAMBER SIZE: ENLARGED LEFT ATRIAL CAVITY WALL MOTION: NORMAL PERICARDIUM: NORMAL INTERPRETATION: 1. ENLARGED LEFT ATRIAL CAVITY WITH LEFT VENTRICULAR HYPERTROPHY 2. NORMAL LEFT VENTRICULAR CONTRACTILITY 3. NORMAL VALVES MTDD
--- NOTE | 2016-10-31 13:49 | ECHOSTRESS ---
Date of Exam: 10/30/16 Ordering Physician: [facility] Reason for Echo: CHEST PAIN, CAD, DOBUTAMINE STRESS --NO ISCHEMIA M-Mode Normal Adult Results LV Dimensions Normal Adult Results AoV Opening excursions >1.6 LVEDD-base- 3.5-5.8 Ao root dimensions 2.0-3.7 LVESD-base- 3.1-4.6 L. Atrium dimensions 1.9-3.8 Post. Wall thickness 0.8-1.1 IV septum (thickness) 0.7-1.2 Post. Wall excursion 0.72-1.3 Septal motion Systolic motion R. Ventricular cavity 1.5-2.0 LVEF 60% Paradoxical septal wall motion 2-D: NORMAL LEFT VENTRICULAR CONTRACTILITY--RESTING AND WITH DOBUTAMINE INFUSION M-MODE: MV: AV: TV: PV: CHAMBER SIZE: WALL MOTION: NORMAL LEFT VENTRICULAR CONTRACTILITY--RESTING AND WITH DOBUTAMINE INFUSION PERICARDIUM: INTERPRETATION: 1. NORMAL LEFT VENTRICULAR CONTRACTILITY--RESTING AND WITH DOBUTAMINE INFUSION MTDD
--- NOTE | 2016-11-04 12:36 | SSS ---
DATE OF SERVICE: 10/30/16 REASON FOR ADMISSION: The patient was placed in observation 10/28/16 because of chest pain, rule out acute coronary status. HISTORY OF PRESENT ILLNESS: The patient complained of midsternal chest pain for one week accompanied by shortness of breath, occasional diaphoresis, nausea without emesis and headache. The patient describes the pain as heaviness without radiation at rest or with exertion. REVIEW OF SYSTEMS: CONSTITUTIONAL: No night sweats. No fatigue, malaise, lethargy. No fever or chills. HEENT: Headache. Eyes: No visual changes. No eye pain. No eye discharge. ENT: No runny nose. No epistaxis. No sinus pain. No sore throat. No odynophagia. No ear pain. No congestion. RESPIRATORY: No cough, no congestion. No hemoptysis. CARDIOVASCULAR: Midsternal chest pain. No palpitations. Shortness of breath. GASTROINTESTINAL: Abdominal pain. Nausea without vomiting with the chest pain. No diarrhea or constipation. No hematemesis. No hematochezia. GENITOURINARY: No urgency. No frequency. No dysuria. No hematuria. No obstructive symptoms. No discharge. No pain. No significant abnormal bleeding. MUSCULOSKELETAL: No musculoskeletal pain. No joint swelling. NEUROLOGICAL: No focal or unilateral weakness. Awake, alert, oriented to time , place and person. No headache. No neck pain. No syncope. No seizures. No dizziness. PSYCHIATRIC: Not anxious. No depression. No suicidal thoughts. No homicidal thoughts. SKIN: No rash. No lesions. No wounds. ENDOCRINE: No unexplained weight loss. No weight gain. HEMATOLOGIC/LYMPHATIC: No anemia. No purpura. No petechiae. No prolonged or excessive bleeding. No palpable lymph nodes. PAST HISTORY: Diabetes Mellitus Type II Vascular insufficiency Status post multiple vascular surgeries GERD Dyslipidemia Neuropathy Sleep apnea Morbid obesity Anxiety Cholecystectomy PERSONAL/FAMILY HISTORY/SOCIAL HISTORY: Single and resides at home alone. Independent with ADL's. No Homemaking or Home Health services. Disabled. Has C-PAP at home. Former smoker. Denies alcohol use. PHYSICAL EXAMINATION: 56 year old female. Height 5'6", weight 310. GENERAL: The patient is in no acute distress. VITAL SIGNS: Blood pressure 176/84, heart rate 127, respiratory rate 22, temperature 98.9, oxygen saturation 92% on room air. HEENT: Head normocephalic, atraumatic. Eyes: Extraocular muscles are intact. Pupils are equal, round and reactive to light and accommodation. Ears: No lesions. Nose appeared normal. Throat: No exudate or erythema. NECK: Supple. No JVD, no carotid bruit. No lymphadenopathy or thyromegaly. LUNGS: Clear to auscultation. Percussion note normal. Chest symmetrical. HEART: S1, S2, no S3. No murmurs. No cyanosis or clubbing. No ascites. Pulses: Dorsalis pedis and posterior tibial pulses +1 to +2 both sides. ABDOMEN: Soft. Nontender. Bowel sounds active. No CVA tenderness. No mass felt. EXTREMITIES: No edema. Full range of motion of all extremities, equal. NEUROLOGIC: Awake, alert and oriented times three. No focal deficit. Cranial nerves II through XII are grossly intact. No headache, no double vision or headache. SKIN: Not dry. Intact. Turgor - normal. LYMPHATIC: No palpable lymph nodes/no lymphedema. MUSCULOSKELETAL: Normal joints with no swelling. Muscle tone is normal. Old/present records reviewed Office records reviewed. ALLERGIES: Penicillin MEDICATIONS: [place] Tresiba Requip Invokana Nexium Dicyclomine Xarelto Triglide Lexapro Pletal Pentoxifylline Metformin Gabapentin Simvastatin ProAir Promethazine Benadryl LABS/EKG'S/X-RAY/ECHO/ABG: WBC 8.56, RBC 5.54, hemoglobin 12.1, hematocrit 40.8 , sodium 142, potassium 3.3, chloride 107, carbon dioxide 20, BUN 10, creatine 1.07, glucose 145 and D-Dimer 465.10. Cardiac markers times two within normal limits. Chest x-ray revealed no active disease. Education carried out about weight loss and exercise. PROGRESS NOTES: Dobutamine stress/sestamibi and echo were normal. Cardiac markers times 2 were normal. Vital signs are stable. Telemetry shows sinus rhythm with BBB. The patient will be discharged today. DIAGNOSES: 1. CHEST PAIN, RULE OUT ACUTE CORONARY SYNDROME 2. DIABETES MELLITUS 3. HYPERTENSION 4. PERIPHERAL VASCULAR DISEASE 5. SUPERFICIAL CELLULITIS RECOMMENDATIONS/PLAN: 1. Discharge today. 2. Return to office on 11/06/16 at 2:30 p.m. at [facility]. 3. Resume home medications. 4. No new prescriptions. 5. Get rest at home. 6. Increase activity as tolerated. 7. Healthy heart diet. *Wounds on the neck, right knee and abdomen grew staph aureus (non MRSA). Clindamycin 350 mg p.o. three times a day was phoned in to [facility]. Case Management spoke with the patient per phone with teaching and instructions. TIME SPENT: More than 70 minutes. MTDD
== END 2016-10-30 14:35 | disposition home or self-care (01) ==
LOC: ED 16:12 → MEDSURG B 18:07
PROVIDERS: ADMIT Emergency Medicine; ATTEND Emergency Medicine
DX: R07.9 Chest pain, unspecified (principal); E11.9 Type 2 diabetes mellitus without complications; I10 Essential (primary) hypertension; I51.7 Cardiomegaly; I73.9 Peripheral vascular disease, unspecified; L03.818 Cellulitis of other sites; B95.61 Methicillin susceptible Staphylococcus aureus infection as the cause of diseases classified elsewhere; E66.01 Morbid (severe) obesity due to excess calories; R10.13 Epigastric pain; E78.5 Hyperlipidemia, unspecified; R11.0 Nausea; R61 Generalized hyperhidrosis; R06.02 Shortness of breath; Z86.73 Personal history of transient ischemic attack (TIA), and cerebral infarction without residual deficits; Z82.49 Family history of ischemic heart disease and other diseases of the circulatory system; Z79.899 Other long term (current) drug therapy
CPT/HCPCS: 36415; 80053; 80061; 82550; 82962; 83036; 84443; 84484; 85025; 85379; 87070; 87081; 87186; 93005; 93010; 99284

== ENCOUNTER 2016-11-07 09:43 | Outpatient (CLI) | payer OTHER ==
--- NOTE | 2016-11-07 23:26 | MRI ---
EXAM: Brain MRI without contrast. HISTORY: Dizziness and giddiness. COMPARISON: None. TECHNIQUE: Multiplanar, multisequence MR images were acquired of the brain without contrast. FINDINGS: The midline structures are central and the craniocervical junction is unremarkable. The ventricles and sulci are normal in size and configuration. 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 There are no abnormal extra-axial fluid collections. The brain parenchyma has no diffusion restriction to suggest acute hypoperfusion or infarction. Smal l T2 hyperintensities are present in the supratentorial white matter compatible with mild leukomalac ia. There is no abnormal dark gradient echo signal. The corpus callosum is normal in size and conf iguration. The pituitary gland is unremarkable. Extensive hyperostosis frontalis interna is present. There are no intraorbital masses. Focal mucos al thickening is present in a few ethmoid air cells bilaterally. There is hypoplasia of the frontal sinus. Minor mucosal thickening is noted in a few inferior left mastoid air cells. Flow voids are present in the major intracranial arteries and dural venous sinuses. There is irregu larity of the left cavernous internal carotid artery flow void. The vessel is tortuous and the irre gularity may be due to vessel tortuosity are a small sessile aneurysm. [place] MRA or CTA could better define the anatomy. Dural venous sinuses are patent. IMPRESSION: 1. No intracranial mass, hemorrhage or acute cerebral infarct. 2. Mild chronic ischemic small vessel disease. 3. Irregular torturuous left cavernous internal carotid artery. The focal irregularity of the david ry raises the possibility of a small aneurysm or vascular ectasia. [place] CTA or MRA would be helpful to better define the anatomy.
== END 2016-11-07 09:44 | disposition home or self-care (01) ==
LOC: RAD 09:43
PROVIDERS: ATTEND Emergency Medicine
DX: R42 Dizziness and giddiness (principal)

== ENCOUNTER 2016-11-13 14:51 | Outpatient (CLI) ==
--- NOTE | 2016-11-13 17:02 | MRI ---
EXAM: MRA brain without IV contrast. DATE: 13 November 2016. HISTORY: Dizziness and giddiness. TECHNIQUE: 3-D xbks-gv-ainyvo sequence centered on the [place] was performed without IV contr ast, using 1.5 Chelle magnet. 3-D MIP reconstruction images of the intracranial arteries were produc ed in addition to the axial source images. Additionally, a T2W axial sequence of the brain was perfo rmed. COMPARISON: MRI brain 07 November 2016. FINDINGS: Neither vertebral artery is dominant. Basilar artery is normal in diameter, without foca l stenosis, dissection or aneurysm. Bilateral anterior inferior and superior cerebellar arteries ar e intact. Right and left PCOM are not visible. The ACOM is intact. Symmetric bilateral blood flow is evident within the anterior, middle, and posterior cerebral artery distributions peripherally. No intracranial aneurysm or AVM is detected. Both petrous ICAs are normal. Right cavernous ICA rev eals less than 50% narrowing in the C3 the segment. Left cavernous ICA C2 segment reduced signal is consistent with less than 50% narrowing of the lumen over a short distance. Axial sequence on source images demonstrate no midline shift or herniation. Ventricles are normal i n size configuration. Some cerebral and cerebellar sulci are slightly prominent. No definitive acu te infarct, hemorrhage, or neoplasm is seen within the brain. Narrow rim of T2W hyperintensity is o bserved in the white matter abutting each lateral ventricle. Small number of 2-7 mm, T2W bright foc i are scattered within the subcortical white matter and draper radiata bilaterally. Brainstem, seven th/eighth cranial nerve complexes, and CP angles are normal. No vascular occlusion is detected. Mod erate/ marked thickening of the inner table of the frontal bone is benign. There is no acute sinusi tis. Mastoid air cells are unremarkable. No orbit abnormality is detected. IMPRESSIONS: 1. Intact ACOM. 2. Atretic bilateral PCOM. 3. No intracranial aneurysm detected. 4. No basilar or vertebral artery stenosis. 5. Bilateral cavernous ICA mild stenoses (< 50%). 6. Mild supratentorial small vessel disease. 7. No acute infarct, hemorrhage, or neoplasm.
== END 2016-11-13 14:52 | disposition home or self-care (01) ==
LOC: RAD 14:51
PROVIDERS: ATTEND Emergency Medicine
DX: R42 Dizziness and giddiness (principal)

== ENCOUNTER 2016-11-26 08:53 | Outpatient (CLI) ==
--- NOTE | 2016-11-26 09:46 | US ---
EXAM: Ultrasound bilateral carotid duplex. HISTORY: Dizziness and giddiness. COMPARISON: None available. TECHNIQUE: Multiple florentino scale and color Doppler images were obtained. FINDINGS: Please note that estimates of internal carotid artery stenoses are based upon NASCET reji graff. Right carotid: Calcified plaquing noted without 50% or greater stenosis. Peak systolic velocity me asurement in the right internal carotid artery is 0.8 meters per second. Right internal to common c arotid artery peak systolic velocity ratio measures 0.8. End diastolic velocity measurement in the right internal carotid artery is 0.2 meters per second. Flow in the right vertebral artery is anteg rade. Left carotid: Calcified plaquing noted without 50% or greater stenosis. Peak systolic velocity meer surement in the left internal carotid artery is 0.8 meters per second. Left internal to common manjarrez tid artery peak systolic velocity ratio measures 0.9. End diastolic velocity measurement in the lef t internal carotid artery measures 0.3 meters per second. Flow in the left vertebral artery is ante grade. IMPRESSION: 1. No evidence for 50% or greater stenosis in the right or left internal carotid artery. 2. Antegrade flow in both vertebral arteries.
== END 2016-11-26 08:54 | disposition home or self-care (01) ==
LOC: RAD 08:53
PROVIDERS: ATTEND Emergency Medicine
DX: R42 Dizziness and giddiness (principal)

== ENCOUNTER 2017-01-20 05:42 | Emergency (ER) ==
[2017-01-20 06:00] VITALS: BP 145/91; TEMP 97.5; BMI 53.2
--- NOTE | 2017-01-20 06:15 | ED.PDOC ---
General Stated Complaint: my legs are swollen and painful--they are weeping--i have vascular disease and also venous clots Time Seen by Physician: 05:55 Mode of Arrival: Ambulance Information Source: Patient Exam Limitations: No limitations Nursing and Triage Documentation Reviewed and Agree: Yes <KAYLA-ER,KRISTI - Last Filed: 01/20/17 06:47> <ANDREE MITCHELL - Last Filed: 01/20/17 08:49> ED Provider: Dr. ANDREE MITCHELL Chief Complaint: Extremity Swelling/Pain [facility] Miscellaneous Complaint Exam - Complex/Multi-System Complaint/Exam Onset/Duration: several days Symptoms Are: Still present Episodes Lasting: Days Initial Severity: Mild Current Severity: Moderate Location of Pain: legs Associated Signs and Symptoms: Reports: Edema, Anticoagulation Therapy. Denies : Decreased responsiveness, Confusion, Agitation, Dizziness, Weakness, Syncope, Headache, Short of air, Cough, Wheezing, Hemoptysis, Chest pain, Palpitations, Nausea, Vomiting, Diarrhea, Abdominal pain, Back pain, Dysuria, Hematemesis, Melena, Decreased oral intake, Fever, Diaphoresis, Immunocompromised, Recent medication changes, Indwelling medical appointment scheduler, Prior MRSA, Prior VRE, Recent trauma, Remote trauma Recent Echo/LV Function: No Respiratory Distress: None JVD Present: No Tachypnea Present: No Stridor Present: No Abdominal Findings: Present: Normal findings Glascow Coma Scale (see protocol): 15 Meningeal Signs Positive: No Focal Weakness: Present: None Focal Sensory Loss: Present: None Gait: Unsteady Gag Reflex Present: Yes Babinski Sign: Negative Right, Negative Left Skin Findings: Present: Normal findings Joint Swelling Present: No Differential Diagnosis: Cardiac Ischemia, Metabolic Abnormality, Other Quality Indicator For Non-Traumatic Chest Pain/Syncope: EKG Performed <TIERRAURIELKRISTI - Last Filed: 01/20/17 06:47> Review of Systems - Review Of Systems Constitutional: Reports: No symptoms Eyes: Reports: No symptoms Ears, Nose, Mouth, Throat: Reports: No symptoms Respiratory: Reports: No symptoms Cardiac: Reports: Edema GI: Reports: No symptoms : Reports: No symptoms Musculoskeletal: Reports: No symptoms Skin: Reports: No symptoms Neurological: Reports: No symptoms Endocrine: Reports: No symptoms Hematologic/Lymphatic: Reports: No symptoms All Other Systems: Reviewed and Negative <LAURAKRISTI - Last Filed: 01/20/17 06:47> Past Medical History - Past Medical History Previously Healthy: No (Numerous problems; vascular surgeries bilateral LEs) Endocrine: Reports: DM 2 Cardiovascular: Reports: Other (vascular insufficiency bilat LEs) Respiratory: Reports: None Hematological: Reports: None Gastrointestinal: Reports: None Genitourinary: Reports: None Neuro/Psych: Reports: CVA Musculoskeletal: Reports: None Cancer: Reports: Colon Last Menstrual Period: 2008 - Surgical History General Surgical History: Reports: Cholecystectomy, Unknown (Colon CA; multiple LE vascular surgeries) - Family History Family History: Reports: Unknown - Social History Smoking Status: Former smoker Hx Substance Use: No Alcohol Screening: None Lives: With family - Immunizations Tetanus Shot up to Date: Yes <LAURAKRISTI Last Filed: 01/20/17 06:47> Physical Exam - Physical Exam Appearance: Well-appearing, No pain distress, Well-nourished Pain Distress: Mild Eyes: MILLIE, EOMI, Conjunctiva clear ENT: Ears normal, Nose normal, Oropharynx normal Neck: Supple Respiratory: Airway patent, Breath sounds clear, Breath sounds equal, Respirations nonlabored Cardiovascular: RRR, Pulses normal, No rub, No murmur GI/: Soft, Nontender, No masses, Bowel sounds normal, No Organomegaly Musculoskeletal: Normal strength, ROM intact, No calf tenderness, Edema Skin: Warm, Dry, Normal color Neurological: Sensation intact, Motor intact, Reflexes intact, Cranial nerves intact, Alert, Oriented Psychiatric: Affect appropriate, Mood appropriate <LAURAKRISTI - Last Filed: 01/20/17 06:47> Re-Evaluation - Re-Evaluation Time of Re-Evaluation: 07:00 (edgard on obtained sign out ) Status: Improved Vital Signs Stable: Yes Appearance: NAD Lungs: Clear Skin: Warm and Dry Neuro: Alert and Oriented X3 CV: RRR - Re-Evaluation Time of Re-Evaluation: 08:48 (rounded on pt with sergey feliciano) Status: Improved Vital Signs Stable: Yes Appearance: NAD Skin: Warm and Dry Neuro: Alert and Oriented X3 CV: RRR <ANDREE MITCHELL - Last Filed: 01/20/17 08:49> Physician Notification - Case Discussed Physician Notified: dr mitchell Time of Notification: 07:00 <KRISTI SANCHEZ - Last Filed: 01/20/17 06:47> Critical Care Note - Critical Care Note Total Time (mins): 0 <ANDREE MITCHELL - Last Filed: 01/20/17 08:49> Course - Course Hematology/Chemistry: 01/20/17 06:20 01/20/17 06:20 <KRISTI SANCHEZ - Last Filed: 01/20/17 06:47> - Course Hematology/Chemistry: 01/20/17 06:20 01/20/17 06:20 <ANDREE MITCHELL - Last Filed: 01/20/17 08:49> - Course Orders, Labs, Meds: Lab Review 01/20/17 01/20/17 01/20/17 06:20 06:20 06:20 WBC 5.84 RBC 4.67 Hgb 9.5 L Hct 33.5 L MCV 71.7 L MCH 20.3 L MCHC 28.4 L RDW Coeff of Cathy 17.3 H Plt Count 402 Immature Gran % (Auto) 0.5 Neut % (Auto) 67.8 Lymph % (Auto) 19.7 [place] % (Auto) 8.2 Eos % (Auto) 3.3 Baso % (Auto) 0.5 Immature Gran # (Auto) 0.0 Neut # 4.0 Lymph # 1.2 [place] # 0.5 Eos # 0.2 Baso # 0.0 Sodium 141 Potassium 3.3 L Chloride 104 Carbon Dioxide 27 Anion Gap 13.3 BUN 11 Creatinine 0.81 Estimated GFR (MDRD) 73.00 BUN/Creatinine Ratio 13.58 Glucose 120 H Calcium 9.6 Total Bilirubin 0.26 AST 18 ALT 13 Alkaline Phosphatase 61 B-Natriuretic Peptide 89 Total Protein 7.0 Albumin 3.1 L Globulin 3.9 Albumin/Globulin Ratio 0.79 Orders Category Date Time Status EKG-(ED ONLY) Stat CARDIO 01/20/17 06:09 Completed B-TYPE NATRIURETIC PEPTIDE Stat LAB 01/20/17 06:20 Completed CBC W/ AUTO DIFF Stat LAB 01/20/17 06:20 Completed COMPREHENSIVE METABOLIC PANEL Stat LAB 01/20/17 06:20 Completed Promethazine HCl [Phenergan 25 mg/ml Vial] MEDS 01/20/17 07:11 Discontinued 25 mg IM ONCE STA CXR [CHEST, 2 VIEWS PA & LAT] Stat RADS 01/20/17 06:12 Completed ULTRASOUND VENOUS SCAN NAHED LEGS [U/S VENOUS SCAN NAHED RADS 01/20/17 07:00 Completed LEGS] Stat Medications Discontinued Medications Generic Name Dose Route Start Last Admin Trade Name Ruth PRN Reason Stop Dose Admin Promethazine HCl 25 mg 01/20/17 07:11 01/20/17 07:28 Phenergan 25 Mg/Ml Vial IM 01/20/17 07:12 25 mg ONCE STA Administration Vital Signs: Temp Pulse Resp BP Pulse Ox 01/20/17 05:44 97.5 F L 75 24 145/91 H 91 L Departure <KRISTI SANCHEZ - Last Filed: 01/20/17 06:47> - Departure Time of Disposition: 08:48 (also seen with gabi) Pt referred to PMD for follow-up: Yes <ANDREE MITCHELL - Last Filed: 01/20/17 08:49> - Departure Disposition: HOME SELF-CARE Discharge Problem: Chronic leg pain Qualifiers: Laterality: right Qualified Code(s): M79.604 - Pain in right leg; G89.29 - Other chronic pain; G89.29 - Other chronic pain Instructions: Leg Pain (ED) Condition: Good Allergies/Adverse Reactions: Allergies Penicillins Allergy (Severe, Verified 01/20/17 05:59) throat swells Patient will notify drugstore Home Medications: Ambulatory Orders Albuterol Sulfate [Proair Hfa] 2 puff IH Q4H PRN 10/28/16 Canagliflozin [Invokana] 300 mg PO DAILY 10/28/16 Cilostazol [Pletal] 100 mg PO BID 10/28/16 Dicyclomine HCl 10 mg PO TID 10/28/16 Diphenhydramine HCl 50 mg PO Q6HR PRN 10/28/16 Escitalopram Oxalate [Lexapro] 20 mg PO DAILY 10/28/16 Esomeprazole Magnesium [Nexium] 40 mg PO DAILY 10/28/16 Fenofibrate [Triglide] 160 mg PO DAILY 10/28/16 Gabapentin 600 mg PO TID 10/28/16 Hydrocodone/Acetaminophen [Hydrocodon-Acetaminophn 10-325] 1 tab PO BID Insulin Degludec [Tresiba Flextouch U-100] 25 units SQ DAILY 10/28/16 Metformin HCl 500 mg PO BID 10/28/16 Pentoxifylline 400 mg PO Q8HR 10/28/16 Rivaroxaban [Xarelto] 20 mg PO DAILY 10/28/16 Ropinirole HCl [Requip] 0.5 mg PO BEDTIME 10/28/16 Simvastatin 20 mg PO BEDTIME 10/28/16
[2017-01-20 06:25] LABS: BASOPHILS % (AUTO) 0.5 % (0.0-3.0); EOSINOPHILS # (AUTO) 0.2 K/ul (0.0-0.7); EOSINOPHILS % (AUTO) 3.3 % (0.0-7.0); HEMATOCRIT 33.5 % (37.0-47.0); HEMOGLOBIN 9.5 g/dl (12.0-16.0); IMMATURE GRANULOCYTE % (AUTO) 0.5 % (0.0-5.0); LYMPHOCYTES # (AUTO) 1.2 K/uL (0.60-3.4); LYMPHOCYTES % (AUTO) 19.7 (10.0-50.0); MEAN CORPUSCULAR HEMOGLOBIN 20.3 pg (27.0-31.0); MEAN CORPUSCULAR HGB CONC 28.4 (31.8-35.4); MEAN CORPUSCULAR VOLUME 71.7 fl (81.0-99.0); MONOCYTES # (AUTO) 0.5 K/uL (0.4-2.0); MONOCYTES % (AUTO) 8.2 (0-10); NEUTROPHILS % (AUTO) 67.8; PLATELET COUNT 402 10^3/uL (140-440); RED BLOOD COUNT 4.67 10^6/ul (4.20-5.40); WHITE BLOOD COUNT 5.84 K/ul (4.6-10.2)
[2017-01-20 06:44] LABS: ALBUMIN 3.1 g/dL (3.4-5.0); ALBUMIN/GLOBULIN RATIO 0.79; ANION GAP 13.3; BILIRUBIN,TOTAL 0.26 mg/dL (0.00-1.20); BUN/CREATININE RATIO 13.58; CALCIUM 9.6 mg/dL (8.2-10.2); CREATININE 0.81 mg/dL (0.60-1.30); POTASSIUM 3.3 mmol/L (3.5-5.10)
[2017-01-20] MEDS ORDERED: PHENERGAN 25 MG/ML VIAL IM STA (07:11)
--- NOTE | 2017-01-20 07:47 | DI ---
EXAM: CHEST FRONTAL AND LATERAL VIEWS HISTORY: Leg edema, concern for volume overload. COMPARISON: 10/28/2016 FINDINGS: Borderline enlarged heart size is stable. There is at least mild aortic atherosclerosis. No definite pulmonary vascular congestion or central interstitial edema. No pleural fluid or lobar consolidation. No pneumothorax. Stabilization hardware lower cervical spine. IMPRESSION: Prominent heart size. No definite active congestive heart failure or pulmonary edema. No pleural fl uid.
--- NOTE | 2017-01-20 08:23 | US ---
EXAM: ULTRASOUND LOWER EXTREMITY VENOUS DOPPLER EXAM HISTORY: Leg pain and swelling. FINDINGS: Bilateral lower extremity venous Doppler exam. Real time florentino-scale, Doppler spectral anal ysis and color-flow Doppler imaging performed. The veins targeted for evaluation include the common femoral, greater saphenous, profundus, femoral, popliteal, peroneal, anterior tibial and posterior ti bial. The evaluated veins demonstrated normal spontaneous flow and compression without evidence of thrombosis. IMPRESSION: No venous thrombosis identified within the areas evaluated.
== END 2017-01-20 09:12 | disposition home or self-care (01) ==
LOC: ED 05:42
DX: M79.604 Pain in right leg (principal); M79.605 Pain in left leg; G89.29 Other chronic pain; R60.0 Localized edema; I99.8 Other disorder of circulatory system; E11.9 Type 2 diabetes mellitus without complications; Z79.899 Other long term (current) drug therapy; Z86.73 Personal history of transient ischemic attack (TIA), and cerebral infarction without residual deficits; R06.9 Unspecified abnormalities of breathing; R26.2 Difficulty in walking, not elsewhere classified
CPT/HCPCS: 36415; 80053; 83880; 85025; 93005; 93010; 96372; 99283

== ENCOUNTER 2017-01-24 16:01 | Outpatient (CLI) | payer OTHER ==
[2017-01-24 16:10] LABS: BASOPHILS # (AUTO) 0.1 K/uL (0-0.2); BASOPHILS % (AUTO) 0.7 % (0.0-3.0); EOSINOPHILS # (AUTO) 0.2 K/ul (0.0-0.7); EOSINOPHILS % (AUTO) 3.1 % (0.0-7.0); HEMATOCRIT 37.6 % (37.0-47.0); HEMOGLOBIN 10.5 g/dl (12.0-16.0); IMMATURE GRANULOCYTE % (AUTO) 0.4 % (0.0-5.0); LYMPHOCYTES # (AUTO) 1.9 K/uL (0.60-3.4); LYMPHOCYTES % (AUTO) 28.6 (10.0-50.0); MEAN CORPUSCULAR HEMOGLOBIN 20.2 pg (27.0-31.0); MEAN CORPUSCULAR HGB CONC 27.9 (31.8-35.4); MEAN CORPUSCULAR VOLUME 72.3 fl (81.0-99.0); MONOCYTES # (AUTO) 0.5 K/uL (0.4-2.0); MONOCYTES % (AUTO) 7.6 (0-10); NEUTROPHILS % (AUTO) 59.6; PLATELET COUNT 527 10^3/uL (140-440); WHITE BLOOD COUNT 6.69 K/ul (4.6-10.2)
== END 2017-01-24 16:02 | disposition home or self-care (01) ==
LOC: LAB 16:01
PROVIDERS: ATTEND Emergency Medicine
DX: E11.9 Type 2 diabetes mellitus without complications (principal)
CPT/HCPCS: 36415; 85025

== ENCOUNTER → 2017-02-12 | Outpatient (CLI) ==
[2017-01-20 06:00] VITALS: BMI 53.2
== END ==
LOC: WOUND 09:30
PROVIDERS: ATTEND Nurse Practitioner Family
DX: S30.81 Abrasion of abdomen, lower back, pelvis and external genitals (principal); L30.9 Dermatitis, unspecified; E11.9 Type 2 diabetes mellitus without complications; E78.5 Hyperlipidemia, unspecified; I87.2 Venous insufficiency (chronic) (peripheral)
CPT/HCPCS: 99211; 99213

== ENCOUNTER 2017-02-19 10:43 | Outpatient (CLI) ==
[2017-02-19 16:10] LABS: BASOPHILS # (AUTO) 0.1 K/uL (0-0.2); BASOPHILS % (AUTO) 0.8 % (0.0-3.0); EOSINOPHILS # (AUTO) 0.3 K/ul (0.0-0.7); EOSINOPHILS % (AUTO) 3.5 % (0.0-7.0); HEMOGLOBIN 11.3 g/dl (12.0-16.0); IMMATURE GRANULOCYTE % (AUTO) 0.4 % (0.0-5.0); LYMPHOCYTES # (AUTO) 2.2 K/uL (0.60-3.4); MEAN CORPUSCULAR HEMOGLOBIN 19.9 pg (27.0-31.0); MEAN CORPUSCULAR HGB CONC 28.3 (31.8-35.4); MEAN CORPUSCULAR VOLUME 70.4 fl (81.0-99.0); MONOCYTES # (AUTO) 0.7 K/uL (0.4-2.0); MONOCYTES % (AUTO) 8.3 (0-10); NEUTROPHILS # (AUTO) 5.2 K/ul (2.0-6.9); PLATELET COUNT 556 10^3/uL (140-440); RED BLOOD COUNT 5.68 10^6/ul (4.20-5.40); WHITE BLOOD COUNT 8.46 K/ul (4.6-10.2)
[2017-02-19 16:12] LABS: IMMATURE RETIC FRACTION 28.7; RETICULOCYTE % 1.29 %
[2017-02-19 16:18] LABS: ANISOCYTOSIS NOT PRESENT (NOT PRESENT)
[2017-02-19 16:24] LABS: HYPOCHROMASIA 1+ (NOT PRESENT)
[2017-02-19 16:27] LABS: IRON 29 ug/dL (50-170); TOTAL IRON BINDING CAPACITY 373 ug/dL (240-450)
== END 2017-02-19 10:44 | disposition home or self-care (01) ==
LOC: WOUND 10:43
PROVIDERS: ATTEND Nurse Practitioner Family
DX: S30.81 Abrasion of abdomen, lower back, pelvis and external genitals (principal); L30.9 Dermatitis, unspecified; E11.9 Type 2 diabetes mellitus without complications; E78.5 Hyperlipidemia, unspecified; I87.2 Venous insufficiency (chronic) (peripheral)
CPT/HCPCS: 36415; 82607; 83540; 83550; 84466; 85008; 85025; 85045; 90853; 99211; 99212

== ENCOUNTER 2017-03-12 10:00 | Outpatient (RCR) | END 2017-03-13 | LOC: NEWBEG 10:00 | PROVIDERS: ATTEND Psychiatry & Neurology Psychiatry | DX: F33.1 Major depressive disorder, recurrent, moderate (principal); F41.9 Anxiety disorder, unspecified | CPT/HCPCS: 90853; 99213 ==

== ENCOUNTER 2017-04-04 10:00 | Outpatient (RCR) ==
[2017-04-09 18:02] VITALS: BMI 46.0
== END 2017-04-13 ==
LOC: NEWBEG 10:00
PROVIDERS: ATTEND Psychiatry & Neurology Psychiatry
DX: F33.1 Major depressive disorder, recurrent, moderate (principal); F41.9 Anxiety disorder, unspecified
CPT/HCPCS: 90853; 99214

== ENCOUNTER 2017-04-09 13:41 | Outpatient (CLI) ==
[2017-04-09 13:51] LABS: FLU INTERNAL QC INTERNAL QC VALID; MOLECULAR FLU A POSITIVE BY NAAT (NEGATIVE); MOLECULAR FLU B NEGATIVE BY NAAT (NEGATIVE)
[2017-04-09 18:02] VITALS: BMI 46.0
== END 2017-04-09 13:42 | disposition home or self-care (01) ==
LOC: LAB 13:41
PROVIDERS: ATTEND Emergency Medicine
DX: J11.1 Influenza due to unidentified influenza virus with other respiratory manifestations (principal)
CPT/HCPCS: 87502; 87651; 87880

== ENCOUNTER 2017-04-09 15:53 | Inpatient (IN) ==
[2017-04-09] MEDS ORDERED: DECADRON 4 MG/ML SDV IVP STA (16:18)
--- NOTE | 2017-04-09 17:09 | CT ---
EXAM: CT chest without contrast HISTORY: Coughing COMPARISON: None TECHNIQUE: CT chest performed without intravenous contrast. Coronal and sagittal reformatted images obtained. FINDINGS: Thyroid is enlarged. Heart normal in size. No pericardial effusion. Aorta normal in david iber. Mild atherosclerosis. Small hiatal hernia. Mildly enlarged pretracheal lymph node image 60 m easuring 1.3 cm. Additional adjacent fluid attenuation probably represents trace pericardial recess fluid. Evaluation for hilar lymphadenopathy limited without contrast. Liver diffusely decreased att enuation. The patient status post cholecystectomy. No acute abnormalities of the bones. Cervical s noemí fusion hardware, incompletely imaged. Degenerative change in the spine. Mild sinusoidal curva ture thoracolumbar spine. The central airway patent. Mild bibasilar atelectasis. Several pulmonary nodules in the right lung measuring up to 6 mm on image 41 with additional nodules seen for example image 37, 46, 50. No pleural effusion or pneumothorax. IMPRESSION: 1. Mild bibasilar atelectasis. No airspace consolidation. 2. Several pulmonary nodules measuring up to [address] chest follow-up is recommended in 6 months fo r reevaluation. 3. Mild mediastinal lymphadenopathy, nonspecific. This can be assessed on follow-up. 4. Hepatic steatosis. 5. Thyromegaly.
[2017-04-09 18:02] VITALS: BMI 46.0
[2017-04-09] MEDS: BENTYL PO SCH ×2 (18:31→22:00)
[2017-04-09] MEDS: TAMIFLU PO SCH ×2 (18:31→22:01)
[2017-04-09] MEDS: TYLENOL PO PRN (18:31)
[2017-04-09] MEDS: NEURONTIN PO SCH ×2 (18:31→22:00)
[2017-04-09] MEDS: LOVENOX SUBCUT SCH (18:32)
[2017-04-09] MEDS: GLUCOPHAGE PO SCH (18:32)
[2017-04-09] MEDS ORDERED: ROCEPHIN 1 GM in SODIUM CHLORIDE 50 ML IV SCH (20:00)
[2017-04-09] MEDS ORDERED: NON-FORMULARY MEDICATION (Ropinirole Hcl [Requip] 0.5 MG) PO SCH (21:00)
[2017-04-09] MEDS ORDERED: NON-FORMULARY MEDICATION (Gabapentin [Gabapentin] 600 MG) PO SCH (21:00)
[2017-04-09] MEDS ORDERED: NON-FORMULARY MEDICATION (Simvastatin [Simvastatin] 20 MG) PO SCH (21:00)
[2017-04-09] MEDS ORDERED: REQUIP ONE (21:21)
[2017-04-09] MEDS ORDERED: ROCEPHIN ONE (21:21)
[2017-04-09] MEDS: SODIUM CHLORIDE 1,000 ML IV SCH (21:55)
[2017-04-09] MEDS: REQUIP PO SCH (21:58)
[2017-04-09] MEDS: ZOCOR PO SCH (22:00)
[2017-04-09] MEDS: PLETAL PO SCH (22:00)
[2017-04-09] MEDS: ZOFRAN TAB PO SCH (22:01)
[2017-04-09] MEDS: TRENTAL PO SCH (22:01)
[2017-04-09] MEDS: NORCO 10-325 PO SCH (22:02)
[2017-04-09] MEDS: REMERON PO SCH (22:02)
[2017-04-09] MEDS: DUONEB NEB SCH (23:40)
[2017-04-10] MEDS: TRENTAL PO SCH ×3 (04:03→20:13)
[2017-04-10] MEDS: DUONEB NEB SCH ×3 (04:16→23:13)
[2017-04-10] MEDS ORDERED: SOLU-MEDROL 40 MG IVP SCH (09:00)
[2017-04-10] MEDS ORDERED: VANCOMYCIN 1,000 MG in SODIUM CHLORIDE 200 ML IV SCH (09:00)
[2017-04-10] MEDS ORDERED: XARELTO PO SCH (09:00)
[2017-04-10] MEDS ORDERED: NON-FORMULARY MEDICATION (Potassium Chloride [Potassium Chloride] 10 MEQ) PO SCH (09:00)
[2017-04-10] MEDS ORDERED: NON-FORMULARY MEDICATION (Lisinopril [Lisinopril] 20 MG) PO SCH (09:00)
[2017-04-10] MEDS ORDERED: NON-FORMULARY MEDICATION (Rivaroxaban [Xarelto] 20 MG) PO SCH (09:00)
[2017-04-10] MEDS: NORCO 10-325 PO SCH ×2 (09:03→20:13)
[2017-04-10] MEDS: PLETAL PO SCH ×2 (09:03→20:14)
[2017-04-10] MEDS: LOVENOX SUBCUT SCH (09:03)
[2017-04-10] MEDS: GLUCOPHAGE PO SCH ×2 (09:04→16:33)
[2017-04-10] MEDS: NEURONTIN PO SCH ×3 (09:04→20:14)
[2017-04-10] MEDS: TAMIFLU PO SCH ×2 (09:04→20:14)
[2017-04-10] MEDS: ZESTRIL PO SCH (09:04)
[2017-04-10] MEDS: BENTYL PO SCH ×3 (09:05→20:13)
[2017-04-10] MEDS: MICRO-K CAP PO SCH (09:05)
[2017-04-10] MEDS: ZOFRAN TAB PO SCH (09:06)
[2017-04-10] MEDS: INSULIN DEGLUDEC 25 UNIT SQ SCH (09:30)
[2017-04-10] MEDS: VANCOMYCIN 1,000 MG in SODIUM CHLORIDE 200 ML IV SCH ×3 (10:21→21:30)
[2017-04-10] MEDS ORDERED: PROTONIX PO PRN (12:42)
[2017-04-10] MEDS ORDERED: ZOFRAN TAB PO PRN (12:42)
[2017-04-10] MEDS: NON-FORMULARY MEDICATION (Canagliflozin [Invokana] 300 MG) PO SCH (12:47)
[2017-04-10] MEDS: MOVANTIK PO SCH (12:48)
[2017-04-10] MEDS: SODIUM CHLORIDE 1,000 ML IV SCH (12:50)
[2017-04-10] MEDS ORDERED: SOLU-MEDROL 125 MG IVP SCH (13:00)
[2017-04-10] MEDS: LEXAPRO PO SCH (14:36)
[2017-04-10] MEDS ORDERED: NON-FORMULARY MEDICATION (Escitalopram Oxalate [Lexapro] 20 MG) PO SCH (15:00)
--- NOTE | 2017-04-10 15:26 | PN ---
DATE OF SERVICE: 04/10/17 SUBJECTIVE: The patient was admitted with flu positive and pneumonia. REVIEW OF SYSTEMS: CONSTITUTIONAL: No fever, no chills. HEENT: Normal. ENDOCRINE: No weight gain, no weight loss. CVS: No angina symptoms. No CHF symptoms. No palpitations. No atypical chest pain for CAD. Shortness of breath. No PND, no orthopnea. RESPIRATORY: Cough, Congestion. no hemoptysis. GI: No nausea, no vomiting. No abdominal pain. : No hematuria. No polyuria. MUSCULOSKELETAL:. No joint swelling. PSYCHIATRIC: Not anxious. No depression. No suicidal thoughts. No homicidal thoughts. SKIN: Intact. No rash. Right leg open wounds are present. PHYSICAL EXAMINATION: V/S: Blood pressure 138/70, respiratory rate 22, heart rate 88, temperature 97.8 with saturation 92 on earl 2 liters. HEENT: Normocephalic, atraumatic. Mucosa dry. NECK: Supple. No JVD, no carotid bruit. No lymphadenopathy. LUNGS: Decreased and basilar crackles with expiratory wheeze present. No rales or rhonchi. HEART: S1, S2 normal. No S3. No murmur, gallop or regurgitation. ABDOMEN: Soft, nontender. Bowel sounds active. No rigidity. No rebound or guarding. No CVA tenderness. EXTREMITIES: No clubbing, cyanosis, 1+ edema. Right lower extremity has multiple open wounds all looks dry. MUSCULOSKELETAL: No joint swelling. NEUROLOGIC: Awake, alert, oriented times three. No focal deficit. LYMPHATIC: No lymph nodes palpable. SKIN: Intact. LABS: Sodium 137, potassium 3.8, chloride 105, bicarb 22, BUN 15, creatinine 0.85, WBC 10.07, hgb 10.0, hct 35.5, plt count 365. ASSESSMENT: 1. Hypoxemic respiratory failure 2. COPD exacerbation secondary to the pneumonia and Flu A 3. Hypoxemia 4. Anemia 5. Diabetes 6. Peripheral vascular disease 7. Right lower extremity multiple wounds. PLAN: 1. Continue Rocephin 2. Will add the Vancomycin 3. Start the patient on Solu-Medrol 40 mg Q 8hours. TIME SPENT: More than 35 minutes MTDD
[2017-04-10] MEDS: TYLENOL PO PRN (19:27)
[2017-04-10] MEDS: SOLU-MEDROL 125 MG IVP SCH (20:12)
[2017-04-10] MEDS: ZOCOR PO SCH (20:13)
[2017-04-10] MEDS: ROCEPHIN 1 GM in SODIUM CHLORIDE 50 ML IV SCH (20:13)
[2017-04-10] MEDS: REQUIP PO SCH (20:13)
[2017-04-10] MEDS: REMERON PO SCH (20:14)
[2017-04-11] MEDS: VANCOMYCIN 1,000 MG in SODIUM CHLORIDE 200 ML IV SCH (04:04)
[2017-04-11] MEDS: DUONEB NEB SCH ×3 (05:42→23:10)
[2017-04-11] MEDS: TRENTAL PO SCH ×3 (05:47→20:51)
[2017-04-11] MEDS: LASIX TAB PO SCH (05:47)
[2017-04-11] MEDS ORDERED: ZOFRAN 4 MG/2 ML IVP PRN (07:50)
[2017-04-11] MEDS ORDERED: ZOFRAN 4 MG/2 ML ONE (07:59)
[2017-04-11] MEDS: LOVENOX SUBCUT SCH (08:18)
[2017-04-11] MEDS: SOLU-MEDROL 125 MG IVP SCH ×2 (08:19→20:52)
[2017-04-11] MEDS: LEXAPRO PO SCH (08:21)
[2017-04-11] MEDS: NEURONTIN PO SCH ×3 (08:21→20:51)
[2017-04-11] MEDS: ZESTRIL PO SCH (08:21)
[2017-04-11] MEDS: MICRO-K CAP PO SCH (08:21)
[2017-04-11] MEDS: PLETAL PO SCH ×2 (08:21→20:51)
[2017-04-11] MEDS: BENTYL PO SCH ×3 (08:21→20:51)
[2017-04-11] MEDS: NORCO 10-325 PO SCH ×2 (08:21→20:51)
[2017-04-11] MEDS: TAMIFLU PO SCH ×2 (08:21→20:51)
[2017-04-11] MEDS: TRIGLIDE PO SCH (08:22)
[2017-04-11] MEDS: GLUCOPHAGE PO SCH ×2 (08:22→17:00)
[2017-04-11] MEDS: MOVANTIK PO SCH (08:23)
[2017-04-11] MEDS: NON-FORMULARY MEDICATION (Canagliflozin [Invokana] 300 MG) PO SCH (08:23)
[2017-04-11] MEDS: INSULIN DEGLUDEC 25 UNIT SQ SCH (08:23)
[2017-04-11] MEDS: SODIUM CHLORIDE 1,000 ML IV SCH (10:31)
[2017-04-11] MEDS: VANCOMYCIN 1 GM in SODIUM CHLORIDE 250 ML IV SCH ×2 (13:24→20:52)
[2017-04-11] MEDS: XARELTO PO SCH (17:00)
[2017-04-11] MEDS: ROCEPHIN 1 GM in SODIUM CHLORIDE 50 ML IV SCH (20:00)
[2017-04-11] MEDS: REQUIP PO SCH (20:50)
[2017-04-11] MEDS: ZOCOR PO SCH (20:51)
[2017-04-11] MEDS: REMERON PO SCH (20:51)
[2017-04-12] MEDS: DUONEB NEB SCH ×3 (04:03→20:40)
[2017-04-12] MEDS: LASIX TAB PO SCH (05:35)
[2017-04-12] MEDS: VANCOMYCIN 1 GM in SODIUM CHLORIDE 250 ML IV SCH ×2 (05:35→17:38)
[2017-04-12] MEDS: TRENTAL PO SCH ×3 (05:35→21:22)
[2017-04-12] MEDS: SODIUM CHLORIDE 1,000 ML IV SCH ×2 (05:50→09:46)
--- NOTE | 2017-04-12 09:30 | DI ---
EXAM: Single view chest. HISTORY: Pneumonia COMPARISON: 01/20/2017. CT chest 04/09/2017. FINDINGS: The heart is normal in size. Pulmonary vascularity is within normal limits. No focal airsp daksha opacity or pleural effusion is seen. Osseous structures are unremarkable. IMPRESSION: No acute cardiopulmonary findings.
[2017-04-12] MEDS: GLUCOPHAGE PO SCH ×2 (09:43→17:37)
[2017-04-12] MEDS: MICRO-K CAP PO SCH (09:43)
[2017-04-12] MEDS: NEURONTIN PO SCH ×3 (09:43→21:19)
[2017-04-12] MEDS: LEXAPRO PO SCH (09:43)
[2017-04-12] MEDS: NORCO 10-325 PO SCH ×2 (09:43→21:20)
[2017-04-12] MEDS: TAMIFLU PO SCH ×2 (09:44→21:21)
[2017-04-12] MEDS: PLETAL PO SCH ×2 (09:44→21:20)
[2017-04-12] MEDS: SOLU-MEDROL 125 MG IVP SCH ×2 (09:44→20:27)
[2017-04-12] MEDS: LOVENOX SUBCUT SCH (09:44)
[2017-04-12] MEDS: BENTYL PO SCH ×3 (09:44→21:19)
[2017-04-12] MEDS: TRIGLIDE PO SCH (09:44)
[2017-04-12] MEDS: ZESTRIL PO SCH (09:44)
[2017-04-12] MEDS: INSULIN DEGLUDEC 25 UNIT SQ SCH (09:45)
[2017-04-12] MEDS: NON-FORMULARY MEDICATION (Canagliflozin [Invokana] 300 MG) PO SCH (09:45)
[2017-04-12] MEDS: MOVANTIK PO SCH (09:46)
[2017-04-12] MEDS: XARELTO PO SCH (17:38)
[2017-04-12] MEDS: ROCEPHIN 1 GM in SODIUM CHLORIDE 50 ML IV SCH (21:19)
[2017-04-12] MEDS: REQUIP PO SCH (21:21)
[2017-04-12] MEDS: REMERON PO SCH (21:21)
[2017-04-12] MEDS: ZOCOR PO SCH (21:22)
[2017-04-13] MEDS: TRENTAL PO SCH ×3 (04:21→21:40)
[2017-04-13] MEDS: VANCOMYCIN 1 GM in SODIUM CHLORIDE 250 ML IV SCH ×2 (04:22→17:31)
[2017-04-13] MEDS: DUONEB NEB SCH ×3 (04:23→21:18)
[2017-04-13] MEDS: LASIX TAB PO SCH (05:58)
[2017-04-13] MEDS ORDERED: CITRATE OF MAGNESIA PO ONE (07:27)
[2017-04-13] MEDS: BENTYL PO SCH ×3 (10:15→21:39)
[2017-04-13] MEDS: NON-FORMULARY MEDICATION (Canagliflozin [Invokana] 300 MG) PO SCH (10:16)
[2017-04-13] MEDS: INSULIN DEGLUDEC 25 UNIT SQ SCH (10:16)
[2017-04-13] MEDS: GLUCOPHAGE PO SCH ×2 (10:16→17:31)
[2017-04-13] MEDS: MICRO-K CAP PO SCH (10:17)
[2017-04-13] MEDS: LEXAPRO PO SCH (10:17)
[2017-04-13] MEDS: LOVENOX SUBCUT SCH (10:17)
[2017-04-13] MEDS: NORCO 10-325 PO SCH ×2 (10:18→21:40)
[2017-04-13] MEDS: MOVANTIK PO SCH (10:18)
[2017-04-13] MEDS: NEURONTIN PO SCH ×3 (10:18→21:39)
[2017-04-13] MEDS: SOLU-MEDROL 125 MG IVP SCH ×2 (10:24→21:37)
[2017-04-13] MEDS: PLETAL PO SCH ×2 (10:24→21:38)
[2017-04-13] MEDS: TRIGLIDE PO SCH (10:27)
[2017-04-13] MEDS: TAMIFLU PO SCH ×2 (10:27→21:39)
[2017-04-13] MEDS: ZESTRIL PO SCH (10:28)
[2017-04-13] MEDS: XARELTO PO SCH (17:31)
[2017-04-13] MEDS: REQUIP PO SCH (21:37)
[2017-04-13] MEDS: ROCEPHIN 1 GM in SODIUM CHLORIDE 50 ML IV SCH (21:37)
[2017-04-13] MEDS: ZOCOR PO SCH (21:38)
[2017-04-13] MEDS: REMERON PO SCH (21:39)
[2017-04-14] MEDS: DUONEB NEB SCH ×2 (04:22→14:24)
[2017-04-14] MEDS: VANCOMYCIN 1 GM in SODIUM CHLORIDE 250 ML IV SCH (06:33)
[2017-04-14] MEDS: TRENTAL PO SCH ×2 (06:34→14:20)
[2017-04-14] MEDS: LASIX TAB PO SCH (06:37)
[2017-04-14] MEDS: SODIUM CHLORIDE 1,000 ML IV SCH (06:40)
[2017-04-14] MEDS: MOVANTIK PO SCH (09:00)
[2017-04-14] MEDS: NON-FORMULARY MEDICATION (Canagliflozin [Invokana] 300 MG) PO SCH (09:00)
[2017-04-14] MEDS: LEXAPRO PO SCH (09:20)
[2017-04-14] MEDS: BENTYL PO SCH ×2 (09:20→14:21)
[2017-04-14] MEDS: GLUCOPHAGE PO SCH (09:20)
[2017-04-14] MEDS: NEURONTIN PO SCH ×2 (09:20→14:22)
[2017-04-14] MEDS: TAMIFLU PO SCH (09:20)
[2017-04-14] MEDS: PLETAL PO SCH (09:20)
[2017-04-14] MEDS: MICRO-K CAP PO SCH (09:20)
[2017-04-14] MEDS: SOLU-MEDROL 125 MG IVP SCH (09:21)
[2017-04-14] MEDS: LOVENOX SUBCUT SCH (09:21)
[2017-04-14] MEDS: ZESTRIL PO SCH (09:21)
[2017-04-14] MEDS: NORCO 10-325 PO SCH (09:21)
[2017-04-14] MEDS: INSULIN DEGLUDEC 25 UNIT SQ SCH ×2 (09:21→14:21)
[2017-04-14] MEDS: TRIGLIDE PO SCH (09:21)
[2017-04-14 15:37] VITALS: BP 144/80; TEMP 98
--- NOTE | 2017-04-17 11:52 | DS ---
DATE OF SERVICE: 04/14/17 FINAL DIAGNOSIS: 1. COPD exacerbation secondary to the pneumonia 2. Hypoxemic respiratory failure 3. Flu A positive 4. CAD 5. Peripheral vascular disease 6. Right lower extremity open wounds which are getting better 7. History of TIA 8. Sleep apnea 9. 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 Continue the rest of the home medications MEDICATIONS AT DISCHARGE: Benadryl Pentoxifylline ProAir Invokana Pletal Lexapro Dicyclomine Triglide Lasix Gabapentin Hydrocodone Tresiba Lisinopril Metformin Remeron Movantik Zofran Xarelto Requip NEW PRESCRIPTIONS: Keflex 500mg twice a day for 5 days Prednisone 10mg twice a day for 5 days DIET INSTRUCTIONS: Cardiac and healthy ACTIVITY: As much as tolerated SMOKING: Former Smoker DISEASE SPECIFIC EDUCATION: Pneumonia COPD Needing pneumonia vaccination been discussed HOSPITAL COURSE: Francie Sanchez is a 56 year old female came to the office for cough, congestion, shortness of breath and found to have influenza A positive. She was admitted to the hospital directly. CT chest showed the pneumonia. The patient was started on the Rocephin, breathing treatment, DUO NEBS, Solu-Medrol and Tamiflu for the flu positive. With the given treatment gradually the patient started feeling better. Up and about walking. Still has some shortness of breath. She recovered slowly over the time. As of today the patient is more awake and alert. She does have obstructive sleep apnea and she uses a CPAP which does help her so that she can be sleeping good at night and more active during the day time. Repeat chest x-ray showed betterment of the pneumonia. Right lower extremity had multiple superficial wounds which are all dried up and no active oozing or bleeding does not look like any signs of infection at this time. Dried up and scabbed wounds are present. TIME SPENT: MORE THAN 55 MINUTES MTDD
--- NOTE | 2017-04-17 13:48 | PN ---
DATE OF SERVICE: 04/13/17 SUBJECTIVE: The patient was admitted with the flu and pneumonia. The patient is still short of breath with minimal exertion and says that she is not ready to go home. REVIEW OF SYSTEMS: CONSTITUTIONAL: No fever, no chills. HEENT: Normal. ENDOCRINE: No weight gain, no weight loss. CVS: No angina symptoms. No CHF symptoms. No palpitations. No atypical chest pain for CAD. No shortness of breath. No PND, no orthopnea. RESPIRATORY: No cough, no hemoptysis. GI: No nausea, no vomiting. No abdominal pain. : No hematuria. No polyuria. MUSCULOSKELETAL: No joint swelling. PSYCHIATRIC: Not anxious. No depression. No suicidal thoughts. No homicidal thoughts. SKIN: Intact. No rash. PHYSICAL EXAMINATION: V/S: Blood pressure 126/56, respiratory rate 22, heart rate 57, temperature 96.5 and saturation 93. HEENT: Normocephalic, atraumatic. Mucosa dry. Pallor positive. NECK: Supple. No JVD, no carotid bruit. No lymphadenopathy. LUNGS: Decreased and some crackles on the bases. Clear to auscultation. No rales or rhonchi. HEART: S1, S2 normal. No S3. No murmur, gallop or regurgitation. ABDOMEN: Soft, nontender. Bowel sounds active. No rigidity. No rebound or guarding. No CVA tenderness. EXTREMITIES: No clubbing, cyanosis. 1+ edema. Right lower extremity has multiple wounds which are all seems like dried and no active drainage at this time. MUSCULOSKELETAL: No joint swelling. NEUROLOGIC: Awake, alert, oriented times three. No focal deficit. LYMPHATIC: No lymph nodes palpable. SKIN: Intact. LABS: WBC 7.33, hgb 9.6, hct 34.3, plt count 267, sodium 143, potassium 3.8, chloride 108, bicarb 28, BUN 21, creatinine 0.80, glucose 173 ASSESSMENT: 1. Influenza A positive. 2. COPD exacerbation secondary to the pneumonia bilateral basilar 3. Anemia 4. CAD 5. Congestive heart failure 6. Dyslipidemia 7. Peripheral arterial disease 8. Right lower extremity superficial wounds, multiple of them. PLAN: 1. Continue the Rocephin 2. Breathing treatment 3. Daily I&O's 4. Pletal 5. Lovenox for the DVT prophylaxis TIME SPENT: More than 35 minutes MTDD
--- NOTE | 2017-04-17 15:22 | PN ---
DATE OF SERVICE: 04/12/17 SUBJECTIVE: The patient was admitted with flu positive and COPD exacerbation and pneumonia. REVIEW OF SYSTEMS: CONSTITUTIONAL: No fever, no chills. HEENT: Normal. ENDOCRINE: No weight gain, no weight loss. CVS: No angina symptoms. No CHF symptoms. No palpitations. No atypical chest pain for CAD. Shortness of breath with minimal exertion. No PND, no orthopnea. RESPIRATORY: Cough is better. , no hemoptysis. GI: No nausea, no vomiting. No abdominal pain. : No hematuria. No polyuria. MUSCULOSKELETAL: No joint swelling. PSYCHIATRIC: Not anxious. No depression. No suicidal thoughts. No homicidal thoughts. SKIN: Intact. No rash. PHYSICAL EXAMINATION: V/S: blood pressure 132/53, respiratory rate 20, heart rate 85, temperature 97.1 and saturation 95%. HEENT: Normocephalic, atraumatic. Mucosa dry. Pallor positive. No icterus. NECK: Supple. No JVD, no carotid bruit. No lymphadenopathy. LUNGS: Decreased and basilar crackles. No rales or rhonchi. HEART: S1, S2 normal. No S3. No murmur, gallop or regurgitation. ABDOMEN: Soft, nontender. Bowel sounds active. No rigidity. No rebound or guarding. No CVA tenderness. EXTREMITIES: No clubbing, cyanosis. 1+ edema. Right lower extremity has multiple open wounds. MUSCULOSKELETAL: No joint swelling. NEUROLOGIC: Awake, alert, oriented times three. No focal deficit. LYMPHATIC: No lymph nodes palpable. SKIN: Intact. LABS: Sodium 140, potassium 3.8, chloride 109, bicarb 23, BUN 21, creatinine 0.81, WBC 10.02, hgb 9.6, hct 32.9, plt count 345. ASSESSMENT: 1. COPD exacerbation secondary to the pneumonia 2. Influenza A positive 3. Dehydration 4. Right lower extremity multiple wounds 5. Peripheral vascular disease 6. CAD 7. CHF PLAN: 1. Continue the Rocephin 2. Lovenox for the DVT prophylaxis TIME SPENT: More than 35 minutes MTDD
== END 2017-04-14 17:05 | disposition home or self-care (01) | DRG 193 ==
LOC: MEDSURG A 15:53
PROVIDERS: ADMIT Emergency Medicine; ATTEND Emergency Medicine
DX: J18.9 Pneumonia, unspecified organism (principal); J96.01 Acute respiratory failure with hypoxia; J44.1 Chronic obstructive pulmonary disease with (acute) exacerbation; J11.1 Influenza due to unidentified influenza virus with other respiratory manifestations; I25.10 Atherosclerotic heart disease of native coronary artery without angina pectoris; E11.9 Type 2 diabetes mellitus without complications; I48.91 Unspecified atrial fibrillation; I73.9 Peripheral vascular disease, unspecified; S81.801D Unspecified open wound, right lower leg, subsequent encounter; G47.33 Obstructive sleep apnea (adult) (pediatric); F41.9 Anxiety disorder, unspecified; E66.01 Morbid (severe) obesity due to excess calories; M19.90 Unspecified osteoarthritis, unspecified site; M47.9 Spondylosis, unspecified; D64.9 Anemia, unspecified; E78.5 Hyperlipidemia, unspecified; Z86.73 Personal history of transient ischemic attack (TIA), and cerebral infarction without residual deficits; Z79.84 Long term (current) use of oral hypoglycemic drugs; Z79.899 Other long term (current) drug therapy
CPT/HCPCS: 36415; 80053; 80202; 82550; 82553; 82803; 82962; 84484; 85008; 85025; 87502; 87651; 87880; 93005; 93010; 94640; 97802

== ENCOUNTER 2017-05-09 09:30 | Outpatient (RCR) | payer OTHER | END 2017-05-14 | LOC: NEWBEG 09:30 | PROVIDERS: ATTEND Psychiatry & Neurology Psychiatry | DX: F33.1 Major depressive disorder, recurrent, moderate (principal); F41.9 Anxiety disorder, unspecified; F43.10 Post-traumatic stress disorder, unspecified | CPT/HCPCS: 90832; 90853; 99213; 99214 ==

== ENCOUNTER 2017-05-10 13:23 | Inpatient (IN) ==
--- NOTE | 2017-05-10 14:02 | ED.PDOC ---
General ED Provider: Dr. KRISTI LYNCH Chief Complaint: Dizziness Stated Complaint: My BP was low at home and Lt Forearm /arm is swollen and painful. Onset last 2 days. BP was in 80s/40 range at home. Upon arrival here was in normal range. Extensive history of arterial vascular disease and insufficiency plus previous DVT LExtremity. Time Seen by Physician: 14:15 Mode of Arrival: Walk-In Information Source: Patient, Other Exam Limitations: No limitations [facility] Nursing and Triage Documentation Reviewed and Agree: Yes Reviewed sepsis parameters & appropriate labs ordered?: No System Inflammatory Response Syndrome: Not Applicable Sepsis Protocol: For patient's 13 years and over: Temp is 96.8 and below OR 101 and greater Pulse >90 BPM Resp >20/minute Acutely Altered Mental Status Are patient's symptoms suggestive of a new infection, such as: -Pneumonia -Skin, Soft Tissue -Endocarditis -UTI -Bone, Joint Infection -Implantable Device -Acute Abdominal Infection -Wound Infection -Meningitis -Blood Stream Catheter Infection -Unknown System Inflammatory Response Syndrome: Not Applicable Cardiovascular Complaint Exam - Hypertension Complaint/Exam Symptoms Are: Resolved Timing: Intermittent Reported B/P Prior to Arrival: 86/40/ 146/81 here Aggravating: Reports: None Alleviating: Reports: Rest Associated Signs and Symptoms: Reports: Headache Cardiac Risk Factors: Reports: Hypertension, Elevated lipids Recent Change in Medications: No A/V Nicking: No JVD Present: No Carotid Bruit Present: No Femoral Pulses Bounding: No Differential Diagnoses: Hypertension, Other (hx DVT ) Review of Systems - Review Of Systems Constitutional: Reports: No symptoms Eyes: Reports: No symptoms, Glasses Respiratory: Reports: No symptoms Cardiac: Reports: No symptoms GI: Reports: No symptoms : Reports: No symptoms Musculoskeletal: Reports: Joint pain, Joint swelling Skin: Reports: Change in color, Other (lt arm sl reddened) Neurological: Reports: No symptoms Endocrine: Reports: No symptoms Hematologic/Lymphatic: Reports: No symptoms All Other Systems: Reviewed and Negative Past Medical History - Past Medical History Previously Healthy: No (Numerous problems; vascular surgeries bilateral LEs) Endocrine: Reports: DM 2 Cardiovascular: Reports: Other (vascular insufficiency bilat LEs/DVT) Respiratory: Reports: None, COPD Hematological: Reports: None, Anemia Gastrointestinal: Reports: None, GERD Genitourinary: Reports: None, UTI Neuro/Psych: Reports: CVA Musculoskeletal: Reports: None Cancer: Reports: Colon Last Menstrual Period: 8 years - Surgical History General Surgical History: Reports: Cholecystectomy, Unknown (Colon CA; multiple LE vascular surgeries) - Family History Family History: Reports: Unknown - Social History Smoking Status: Former smoker Hx Substance Use: No Alcohol Screening: None Lives: Alone Physical Exam - Physical Exam Appearance: Well-appearing Ill-appearing: None Pain Distress: None Eyes: MILLIE, EOMI, Conjunctiva clear, Right pupil size ENT: Ears normal, Nose normal, Oropharynx normal Neck: Supple Respiratory: Airway patent, Breath sounds clear, Breath sounds equal Cardiovascular: RRR, Pulses normal GI/: Soft, Nontender, No masses, Bowel sounds normal Musculoskeletal: Normal strength, Edema (Lt Arm and forearm with erythrema/ non warm to touch) Skin: Dry (mild erythrema dosal aspect of lt arm, warm /normal temp. focal exquisite tenderness) Neurological: Sensation intact, Motor intact, Reflexes intact Psychiatric: Affect appropriate, Mood appropriate, Anxious Re-Evaluation - Re-Evaluation Time of Re-Evaluation: 17:00 Status: Unchanged Vital Signs Stable: Yes Pain Level: 5/10 Appearance: NAD Lungs: Clear Skin: Other (Lt arm /forearm with erythrema) Neuro: Alert and Oriented X3 CV: RRR Critical Care Note - Critical Care Note Total Time (mins): 0 Course - Course Hematology/Chemistry: 05/10/17 14:20 05/10/17 14:20 Orders, Labs, Meds: Lab Review 05/10/17 05/10/17 05/10/17 14:20 14:20 14:20 WBC 8.82 RBC 4.78 Hgb 10.1 L Hct 34.7 L MCV 72.6 L MCH 21.1 L MCHC 29.1 L RDW Coeff of Cathy 19.6 H Plt Count 415 Immature Gran % (Auto) 0.8 Neut % (Auto) 59.8 Lymph % (Auto) 26.1 Clare % (Auto) 9.1 Eos % (Auto) 3.5 Baso % (Auto) 0.7 Immature Gran # (Auto) 0.1 Neut # 5.3 Lymph # 2.3 Clare # 0.8 Eos # 0.3 Baso # 0.1 D-Dimer (Manual) 439.38 Sodium 137 Potassium 4.0 Chloride 102 Carbon Dioxide 29 Anion Gap 10.0 BUN 16 Creatinine 1.20 Estimated GFR (MDRD) 46.00 BUN/Creatinine Ratio 13.33 Glucose 140 H Calcium 9.3 Total Bilirubin < 0.3 AST 14 L ALT 12 Alkaline Phosphatase 65 Total Protein 7.0 Albumin 3.1 L Globulin 3.9 Albumin/Globulin Ratio 0.79 Urine Color Urine Clarity Urine pH Ur Specific [place] Urine Protein Urine Glucose (UA) Urine Ketones Urine Blood Urine Nitrite Urine Bilirubin Urine Urobilinogen Ur Leukocyte Esterase Urine Microscopic RBC Urine Microscopic WBC Ur Squamous Epith Cells Amorphous Sediment Urine Bacteria 05/10/17 16:16 WBC RBC Hgb Hct MCV MCH MCHC RDW Coeff of Cathy Plt Count Immature Gran % (Auto) Neut % (Auto) Lymph % (Auto) Clare % (Auto) Eos % (Auto) Baso % (Auto) Immature Gran # (Auto) Neut # Lymph # Clare # Eos # Baso # D-Dimer (Manual) Sodium Potassium Chloride Carbon Dioxide Anion Gap BUN Creatinine Estimated GFR (MDRD) BUN/Creatinine Ratio Glucose Calcium Total Bilirubin AST ALT Alkaline Phosphatase Total Protein Albumin Globulin Albumin/Globulin Ratio Urine Color Yellow Urine Clarity Cloudy Urine pH 5.5 Ur Specific [place] 1.015 Urine Protein Negative Urine Glucose (UA) 2+ Urine Ketones Negative Urine Blood Trace-lysed Urine Nitrite Negative Urine Bilirubin Negative Urine Urobilinogen 0.2 Ur Leukocyte Esterase 2+ Urine Microscopic RBC 0-2 Urine Microscopic WBC 10-20 Ur Squamous Epith Cells 10-20 Amorphous Sediment 2+ Urine Bacteria 2+ Orders Category Date Time Status NPO REMINDER: IMAGING ONCE CARE 05/10/17 16:16 Completed CBC W/ AUTO DIFF Stat LAB 05/10/17 14:20 Completed CMP [COMPREHENSIVE METABOLIC PANEL] Stat LAB 05/10/17 14:20 Completed D-DIMER Stat LAB 05/10/17 14:20 Completed UA [URINALYSIS C & S IF INDICATED] Stat LAB 05/10/17 16:16 Completed URINE CULTURE Stat LAB 05/10/17 16:16 Received Acetaminophen [Tylenol] MEDS 05/10/17 16:18 Discontinued 650 mg PO ONCE STA CHEST, 2 VIEWS PA & LAT Stat RADS 05/10/17 16:[address] FOREARM LEFT WO CONTRAST Stat RADS 05/10/17 16:[address] HUMERUS LEFT W/O CONTRAST Stat RADS 05/10/17 16:34 Completed Medications Discontinued Medications Generic Name Dose Route Start Last Admin Trade Name Freq PRN Reason Stop Dose Admin Acetaminophen 650 mg 05/10/17 16:18 05/10/17 16:52 Tylenol PO 05/10/17 16:19 650 mg ONCE STA Administration Vital Signs: Temp Pulse Resp BP Pulse Ox 05/10/17 13:24 99.2 F 110 H 20 146/81 H 92 L TATE Risk Score TATE Risk Score: Risk Score Odds of by 30D 0 0.1 (0.1-0.2) 1 0.3 (0.2-0.3) 2 0.4 (0.3-0.5) 3 0.7 (0.6-0.9) 4 1.2 (1.0-1.5) 5 2.2 (1.9-2.6) 6 3.0 (2.5-3.6) 7 4.8 (3.8-6.1) Departure - Departure Time of Disposition: 18:00 Disposition: ADMITTED INPATIENT Discharge Problem: Hypertension, Vascular insufficiency, Edema of upper extremity, Cellulitis of arm, left Condition: Fair Pt referred to PMD for follow-up: No IPMP verified?: No Allergies/Adverse Reactions: Allergies Penicillins Allergy (Severe, Verified 05/10/17 13:35) throat swells Patient will notify drugstore Home Medications: Ambulatory Orders Albuterol Sulfate [Proair Hfa] 2 puff IH Q4H PRN 10/28/16 Canagliflozin [Invokana] 300 mg PO DAILY 10/28/16 Dicyclomine HCl 10 mg PO TID 10/28/16 Diphenhydramine HCl 50 mg PO Q6HR PRN 10/28/16 Fenofibrate [Triglide] 160 mg PO DAILY 10/28/16 Pentoxifylline 400 mg PO Q8HR 10/28/16 Rivaroxaban [Xarelto] 20 mg PO DAILY 10/28/16 Ropinirole HCl [Requip] 0.5 mg PO BEDTIME 10/28/16 Simvastatin 20 mg PO BEDTIME 10/28/16 Mirtazapine [Remeron] 15 mg PO BEDTIME 04/09/17 Pantoprazole Sodium [Protonix] 40 mg PO QDAC PRN 04/10/17 Additional Information: Discussed with Dr Begjum. Expressed concern over recent onset of edema and pain in LUE. Ddimer not signif elevated but in light of patient vascular disease recommend admission for observation, treatment and additional evaluation with ultrasound on Friday since not available today Dr Dwyer concurs with admission .
[2017-05-10] MEDS ORDERED: TYLENOL PO STA (16:18)
--- NOTE | 2017-05-10 17:13 | CT ---
EXAM: CT of the left humerus HISTORY: Pain and swelling with history of lower extremity DVT. COMPARISON: None TECHNIQUE: Serial axial images of the left humerus were obtained without contrast. These were viewe d in multiple planes. FINDINGS: The osseous structures demonstrate mild narrowing and degenerative change at the elbow. Th ere is mild motion artifact which limits this evaluation of the humerus. There is no focal lytic or blastic lesion. There is no abnormal periosteal reaction. The soft tissues demonstrate mild subcutan eous ground-glass in the dorsal aspect of the forearm. The soft tissues of the upper arm are normal. The musculature is unremarkable. IMPRESSION: 1. No acute osseous abnormality with mild degenerative change of the elbow. 2. Mild subcutaneous ground-glass seen in the dorsal soft tissues of the proximal left forearm with no underlying fluid collection or gas. This may represent mild inflammatory versus infectious proces s.
--- NOTE | 2017-05-10 17:19 | CT ---
Exam: CT left forearm without contrast History: Pain and swelling Technique: [address] of the left forearm with multiplanar reformations FINDINGS: The specific area of concern has not been designated. Coarse stranding of the subcutaneous fat of the elbow likely represents scarring. No additional inflammatory changes are seen. No bony abnormalities of the forearm or wrist. No acute bony abnormalities of the elbow. Osteoarthritic herbert nge of the elbow. Impression: 1. No acute bony or soft tissue abnormalities of the left forearm.
--- NOTE | 2017-05-10 17:58 | DI ---
EXAM: PA and lateral views of the chest HISTORY: Chest pain COMPARISON: Chest x-ray 04/12/[address] chest 04/09/2017 with multiple priors FINDINGS: The cardiomediastinal silhouette is normal. There is no pneumothorax or pleural effusion. There is no consolidation, nodule or mass. There is flattening of the diaphragm. The osseous stru ctures demonstrate mild multilevel degenerative disease with fusion hardware in the cervical spine. IMPRESSION: 1. No acute cardiopulmonary process or consolidation. 2. Flattening of the diaphragm may represent a component of obstructive pulmonary physiology.
[2017-05-10 18:49] VITALS: BMI 50.5
[2017-05-10] MEDS ORDERED: PROAIR HFA IH PRN (19:31)
[2017-05-10] MEDS ORDERED: NON-FORMULARY MEDICATION (Gabapentin [Gabapentin] 600 MG) PO SCH (21:00)
[2017-05-10] MEDS ORDERED: GLUCOPHAGE PO SCH (21:00)
[2017-05-10] MEDS ORDERED: NON-FORMULARY MEDICATION (Ropinirole Hcl [Requip] 0.5 MG) PO SCH (21:00)
[2017-05-10] MEDS ORDERED: NON-FORMULARY MEDICATION (Simvastatin [Simvastatin] 20 MG) PO SCH (21:00)
[2017-05-10] MEDS ORDERED: NEURONTIN ONE (21:31)
[2017-05-10] MEDS ORDERED: ZOCOR ONE (21:32)
[2017-05-10] MEDS ORDERED: REQUIP ONE (21:32)
[2017-05-10] MEDS: PLETAL PO SCH (21:38)
[2017-05-10] MEDS: REMERON PO SCH (21:38)
[2017-05-10] MEDS: NORCO 10-325 PO SCH (21:38)
[2017-05-10] MEDS: BENTYL PO SCH (21:38)
[2017-05-10] MEDS: TRENTAL PO SCH (21:39)
[2017-05-10] MEDS: HUMULIN R SUBCUT PRN (21:41)
[2017-05-10] MEDS: SODIUM CHLORIDE 1,000 ML IV SCH (23:21)
[2017-05-11] MEDS: PROTONIX PO SCH (05:43)
[2017-05-11] MEDS: TRENTAL PO SCH ×3 (05:43→20:28)
[2017-05-11] MEDS ORDERED: LASIX TAB PO SCH ×2 (06:30→09:00)
[2017-05-11] MEDS: GLUCOPHAGE PO SCH ×2 (08:23→16:48)
[2017-05-11] MEDS ORDERED: NON-FORMULARY MEDICATION (Escitalopram Oxalate [Lexapro] 20 MG) PO SCH (09:00)
[2017-05-11] MEDS ORDERED: NON-FORMULARY MEDICATION (Rivaroxaban [Xarelto] 20 MG) PO SCH (09:00)
[2017-05-11] MEDS ORDERED: NON-FORMULARY MEDICATION (Lisinopril [Lisinopril] 20 MG) PO SCH (09:00)
[2017-05-11] MEDS ORDERED: NON-FORMULARY MEDICATION (Potassium Chloride [Potassium Chloride] 10 MEQ) PO SCH (09:00)
[2017-05-11] MEDS ORDERED: MOVANTIK PO SCH (09:00)
[2017-05-11] MEDS: BENTYL PO SCH ×3 (09:06→20:27)
[2017-05-11] MEDS: NEURONTIN PO SCH ×3 (09:06→20:28)
[2017-05-11] MEDS: PLETAL PO SCH ×2 (09:06→20:28)
[2017-05-11] MEDS: LEXAPRO PO SCH (09:07)
[2017-05-11] MEDS: ZESTRIL PO SCH (09:07)
[2017-05-11] MEDS: TRIGLIDE PO SCH (09:07)
[2017-05-11] MEDS: ROCEPHIN 1 GM in SODIUM CHLORIDE 50 ML IV SCH (09:17)
[2017-05-11] MEDS: NORCO 10-325 PO SCH ×2 (09:35→20:28)
[2017-05-11] MEDS: INSULIN DEGLUDEC 25 UNIT SQ SCH (09:35)
[2017-05-11] MEDS: NON-FORMULARY MEDICATION (Canagliflozin [Invokana] 300 MG) PO SCH (09:54)
[2017-05-11] MEDS: XARELTO PO SCH (10:08)
[2017-05-11] MEDS: HUMULIN R SUBCUT PRN (11:30)
[2017-05-11] MEDS ORDERED: TYLENOL PO STA (11:48)
[2017-05-11] MEDS: SODIUM CHLORIDE 1,000 ML IV SCH ×2 (14:39→16:05)
[2017-05-11] MEDS ORDERED: XARELTO PO SCH (17:00)
[2017-05-11] MEDS: REMERON PO SCH (20:28)
[2017-05-11] MEDS: REQUIP PO SCH (20:28)
[2017-05-11] MEDS: ZOCOR PO SCH (20:29)
[2017-05-12] MEDS: ZOFRAN TAB PO PRN ×2 (04:19→16:31)
[2017-05-12] MEDS: PROTONIX PO SCH (05:44)
[2017-05-12] MEDS: LASIX TAB PO SCH (05:44)
[2017-05-12] MEDS: TRENTAL PO SCH ×3 (05:44→20:18)
[2017-05-12] MEDS: MOVANTIK PO SCH (05:45)
[2017-05-12] MEDS: GLUCOPHAGE PO SCH ×2 (08:57→16:31)
[2017-05-12] MEDS ORDERED: XARELTO PO SCH (09:00)
[2017-05-12] MEDS: BENTYL PO SCH ×3 (09:06→20:18)
[2017-05-12] MEDS: NORCO 10-325 PO SCH ×2 (09:06→20:18)
[2017-05-12] MEDS: LEXAPRO PO SCH (09:06)
[2017-05-12] MEDS: PLETAL PO SCH ×2 (09:06→20:18)
[2017-05-12] MEDS: ZESTRIL PO SCH (09:07)
[2017-05-12] MEDS: NEURONTIN PO SCH ×3 (09:07→20:18)
[2017-05-12] MEDS: TRIGLIDE PO SCH (09:07)
[2017-05-12] MEDS: MICRO-K CAP PO SCH (09:08)
[2017-05-12] MEDS: INSULIN DEGLUDEC 25 UNIT SQ SCH (09:08)
[2017-05-12] MEDS: NON-FORMULARY MEDICATION (Canagliflozin [Invokana] 300 MG) PO SCH (09:10)
[2017-05-12] MEDS: ROCEPHIN 1 GM in SODIUM CHLORIDE 50 ML IV SCH (09:11)
[2017-05-12] MEDS: XARELTO PO SCH (09:15)
[2017-05-12] MEDS: SODIUM CHLORIDE 1,000 ML IV SCH (11:31)
[2017-05-12] MEDS: HUMULIN R SUBCUT PRN (12:20)
--- NOTE | 2017-05-12 14:15 | US ---
EXAM: Left upper extremity venous Doppler History: Left upper extremity edema. Technique: Multiple sonographic images through the left upper extremity were obtained. Color duplex Doppler was used to interrogate vascular flow. Findings: The left jugular, subclavian, axillary, brachial, cephalic, basilic, radial and ulnar vein s demonstrate spontaneous flow with normal compression and normal augmentation. Impression: No sonographic evidence for deep venous thrombosis
[2017-05-12] MEDS: ZOCOR PO SCH (20:18)
[2017-05-12] MEDS: REMERON PO SCH (20:18)
[2017-05-12] MEDS: REQUIP PO SCH (20:19)
[2017-05-13] MEDS: PROTONIX PO SCH (05:58)
[2017-05-13] MEDS: LASIX TAB PO SCH (05:58)
[2017-05-13] MEDS: TRENTAL PO SCH ×3 (05:58→20:07)
[2017-05-13] MEDS: HUMULIN R SUBCUT PRN ×3 (05:58→20:05)
[2017-05-13] MEDS: MOVANTIK PO SCH (05:58)
[2017-05-13] MEDS: SODIUM CHLORIDE 1,000 ML IV SCH (07:57)
[2017-05-13] MEDS: INSULIN DEGLUDEC 25 UNIT SQ SCH (07:59)
[2017-05-13] MEDS: ZESTRIL PO SCH (08:00)
[2017-05-13] MEDS: NON-FORMULARY MEDICATION (Canagliflozin [Invokana] 300 MG) PO SCH (08:00)
[2017-05-13] MEDS: TRIGLIDE PO SCH (08:01)
[2017-05-13] MEDS: GLUCOPHAGE PO SCH ×2 (08:01→17:16)
[2017-05-13] MEDS: MICRO-K CAP PO SCH (08:01)
[2017-05-13] MEDS: NORCO 10-325 PO SCH ×2 (08:01→20:07)
[2017-05-13] MEDS: LEXAPRO PO SCH (08:01)
[2017-05-13] MEDS: PLETAL PO SCH ×2 (08:02→20:07)
[2017-05-13] MEDS: BENTYL PO SCH ×3 (08:02→20:06)
[2017-05-13] MEDS: NEURONTIN PO SCH ×3 (08:02→20:07)
[2017-05-13] MEDS: ROCEPHIN 1 GM in SODIUM CHLORIDE 50 ML IV SCH (08:10)
[2017-05-13] MEDS: XARELTO PO SCH (08:10)
[2017-05-13] MEDS ORDERED: DECADRON 4 MG/ML SDV IM STA (09:10)
--- NOTE | 2017-05-13 09:49 | HP ---
DATE OF SERVICE: 05/10/17 CHIEF COMPLAINT: Left upper extremity swelling and blood pressure has been low. HISTORY OF PRESENT ILLNESS: This is a 56-year-old female with multiple medical problems. The patient has been feeling dizzy and weak. The patient's friend took the blood pressure at home. Blood pressure systolic 88. At that time, the patient was complaining of left arm swelling and pain. She came to the emergency room and was seen by ER physician, Dr. Carlin. Hemoglobin 10.1, D. dimer 438, glucose 140. Urine is cloudy and 2+ leukocyte esterase. Left upper extremity is swollen and tender to touch. At that time, in view of DVT and clots, as the patient is at risk for, the patient was admitted to the hospital. REVIEW OF SYSTEMS: CONSTITUTIONAL: No fever, no chills. HEENT: Normal. ENDOCRINE: No weight gain; no weight loss. CVS: No chest pain. No PND, no orthopnea. No shortness of breath. No PND, no orthopnea. RESPIRATORY: No cough, no congestion. No hemoptysis. GI: No nausea, no vomiting. No abdominal pain. No melena. : No hematuria. No polyuria. MUSCULOSKELETAL: No joint swelling. PSYCHIATRIC: Not anxious. No depression. No suicidal thoughts. No homicidal thoughts. SKIN: Intact, no open lesions. PAST MEDICAL HISTORY: Coronary artery disease DVT in the legs TIA Sleep apnea Peripheral vascular disease Osteoarthritis DJD spine Diabetes mellitus Depression Anxiety PAST SURGICAL HISTORY: Ear surgery Tonsillectomy Cholecystectomy PERSONAL HISTORY: The patient is a nonsmoker. No alcohol use. FAMILY HISTORY: Significant for diabetes, thyroid disease, coronary artery disease. MEDICATIONS: (HOME) Pentoxifylline Requip Invokana Dicyclomine Xarelto Triglide Simvastatin Albuterol Diphenhydramine Hydrocodone Insulin Lasix Remeron Protonix Lexapro Potassium Naloxegol Lasix Cilostazol Metformin Zofran Neurontin ALLERGIES: PENICILLIN PHYSICAL EXAMINATION: V/S: BP 146/81, respiratory rate 20, heart rate 110, temperature 99.2, saturation 92 on room air. HEENT: Atraumatic, normocephalic. No scleral icterus. Pallor positive. Mucosa dry. NECK: Supple. No JVD, no bruit. No lymphadenopathy. No thyromegaly. HEART: S1, S2 normal. No murmur. No cyanosis or clubbing. No ascites. LUNGS: Clear to auscultation. No rales or rhonchi. ABDOMEN: Soft, nontender. Bowel sounds are active. No CVA tenderness. No rigidity or guarding. EXTREMITIES: Left upper extremity swelling, tenderness present, More swelling in the left forearm. Pain and tenderness in the left arm is also noted. Some redness is also noted in the arm. No pedal edema. No cyanosis or clubbing MUSCULOSKELETAL: Normal joints, no swelling. NEUROLOGIC: The patient is SKIN: Intact; no open lesions. LYMPHATIC: No lymph nodes palpable. LABS: Sodium is 137, potassium 4.0, chloride 102, bicarb 29, BUN 16, creatinine 1.20, glucose 140. White count 8.8, hemoglobin 10.1, hematocrit 34.7, platelet count 415. Urine - leukocyte esterase positive. Nitrites negative. Left-sided CT scan of forearm showed cellulitis, superficial. ASSESSMENT: Left upper extremity swelling and cellulitis, rule out DVT History of DVT CAD Hypertension Diabetes Depression Anemia PLAN: Admit the patient to the regular floor Start the patient on Rocephin 1 gm daily Ultrasound of the left upper extremity Continue the home medications Diet - cardiac and healthy Accu-Checks with coverage Oxygen 2L/NC TIME SPENT: MORE THAN 75 minutes MTDD
--- NOTE | 2017-05-13 14:17 | PN ---
DATE OF SERVICE: 05/11/17 SUBJECTIVE: The patient was admitted with the left upper extremity pain, swelling and superficial cellulitis. The patient has a social situation where sometimes she doesn't get her medication because she worried they ran out and she can not afford them. She goes to the [facility] in [facility] where they are trying to help her and education her. REVIEW OF SYSTEMS: CONSTITUTIONAL: No fever, no chills. HEENT: Normal. ENDOCRINE: No weight gain, no weight loss. CVS: No angina symptoms. No CHF symptoms. No palpitations. No atypical chest pain for CAD. No shortness of breath. No PND, no orthopnea. RESPIRATORY: No cough, no hemoptysis. GI: No nausea, no vomiting. No abdominal pain. : No hematuria. No polyuria. MUSCULOSKELETAL: No joint swelling. PSYCHIATRIC: Not anxious. No depression. No suicidal thoughts. No homicidal thoughts. SKIN: Intact. No rash. PHYSICAL EXAMINATION: V/S: Blood pressure 121/76, respiratory rate 18, heart rate 81, temperature 97.4 , saturation 97%. HEENT: Normocephalic, atraumatic. Mucosa dry. Pallor positive. No icterus. NECK: Supple. No JVD, no carotid bruit. No lymphadenopathy. LUNGS: Decreased and basilar crackles. No rales or rhonchi. HEART: S1, S2 normal. No S3. No murmur, gallop or regurgitation. ABDOMEN: Soft, nontender. Bowel sounds active. No rigidity. No rebound or guarding. No CVA tenderness. EXTREMITIES: 1+ pedal edema. Left upper extremity redness and swelling and present, tender to touch and warm to touch mostly in the forearm area and some in the left upper extremity area. No clubbing or cyanosis MUSCULOSKELETAL: No joint swelling. NEUROLOGIC: Awake, alert, oriented times three. No focal deficit. LYMPHATIC: No lymph nodes palpable. SKIN: Intact. Two open wounds and says that she was scratching at them and picking on them so two open wounds are present. LABS: WBC 8.82, hgb 10.1, hct 34.7, plt count 415, sodium 137, potassium 4.0, chloride 102, bicarb 29, BUN 16, creatinine 1.20, glucose 140 ASSESSMENT: 1. Left upper extremity swelling rule out DVT and superficial cellulitis is present which is being treated 2. Chronic anemia 3. CAD 4. CHF 5. Peripheral arterial disease 6. History of DVT 7. Depression 8. Anxiety 9. Diabetes Mellitus PLAN: 1. Continue Rocephin and Vancomycin 2. Accu-checks with coverage 3. Out of bed to chair activity as tolerated Will follow the patient in daily rounds. TIME SPENT: More than 35 minutes MTDD
[2017-05-13] MEDS: REQUIP PO SCH (20:06)
[2017-05-13] MEDS: ZOCOR PO SCH (20:06)
[2017-05-13] MEDS: REMERON PO SCH (20:09)
[2017-05-14] MEDS: TRENTAL PO SCH ×3 (05:39→20:26)
[2017-05-14] MEDS: MOVANTIK PO SCH (05:39)
[2017-05-14] MEDS: LASIX TAB PO SCH (05:40)
[2017-05-14] MEDS: PROTONIX PO SCH (05:40)
[2017-05-14] MEDS: SODIUM CHLORIDE 1,000 ML IV SCH (06:38)
[2017-05-14] MEDS: ROCEPHIN 1 GM in SODIUM CHLORIDE 50 ML IV SCH (08:25)
[2017-05-14] MEDS: INSULIN DEGLUDEC 25 UNIT SQ SCH (08:25)
[2017-05-14] MEDS: NON-FORMULARY MEDICATION (Canagliflozin [Invokana] 300 MG) PO SCH (08:25)
[2017-05-14] MEDS: NORCO 10-325 PO SCH ×2 (08:27→20:27)
[2017-05-14] MEDS: PLETAL PO SCH ×2 (08:27→20:27)
[2017-05-14] MEDS: ZESTRIL PO SCH (08:27)
[2017-05-14] MEDS: BENTYL PO SCH ×3 (08:27→20:27)
[2017-05-14] MEDS: XARELTO PO SCH (08:27)
[2017-05-14] MEDS: GLUCOPHAGE PO SCH ×2 (08:28→17:01)
[2017-05-14] MEDS: NEURONTIN PO SCH ×3 (08:28→20:26)
[2017-05-14] MEDS: TRIGLIDE PO SCH (08:28)
[2017-05-14] MEDS: LEXAPRO PO SCH (08:28)
[2017-05-14] MEDS: MICRO-K CAP PO SCH (08:28)
[2017-05-14] MEDS: CLEOCIN PO SCH ×3 (08:45→20:27)
[2017-05-14] MEDS ORDERED: KEFLEX PO SCH (09:00)
[2017-05-14] MEDS: REQUIP PO SCH (20:26)
[2017-05-14] MEDS: KEFLEX PO SCH (20:26)
[2017-05-14] MEDS: ZOCOR PO SCH (20:26)
[2017-05-14] MEDS: REMERON PO SCH (20:26)
[2017-05-15] MEDS: CLEOCIN PO SCH (05:48)
[2017-05-15] MEDS: PROTONIX PO SCH (05:49)
[2017-05-15] MEDS: TRENTAL PO SCH (05:49)
[2017-05-15] MEDS: LASIX TAB PO SCH (05:49)
[2017-05-15] MEDS: MOVANTIK PO SCH (05:49)
[2017-05-15] MEDS: NON-FORMULARY MEDICATION (Canagliflozin [Invokana] 300 MG) PO SCH (08:14)
[2017-05-15] MEDS: NEURONTIN PO SCH (08:15)
[2017-05-15] MEDS: XARELTO PO SCH (08:15)
[2017-05-15] MEDS: BENTYL PO SCH (08:15)
[2017-05-15] MEDS: GLUCOPHAGE PO SCH (08:15)
[2017-05-15] MEDS: LEXAPRO PO SCH (08:16)
[2017-05-15] MEDS: TRIGLIDE PO SCH (08:16)
[2017-05-15] MEDS: KEFLEX PO SCH (08:16)
[2017-05-15] MEDS: ZESTRIL PO SCH (08:16)
[2017-05-15] MEDS: PLETAL PO SCH (08:16)
[2017-05-15] MEDS: MICRO-K CAP PO SCH (08:16)
[2017-05-15 09:48] VITALS: BP 134/80; TEMP 97.8
[2017-05-15] MEDS: INSULIN DEGLUDEC 25 UNIT SQ SCH (10:55)
[2017-05-15] MEDS: NORCO 10-325 PO SCH (10:56)
--- NOTE | 2017-05-15 13:35 | PN ---
DATE OF SERVICE: 05/12/17 SUBJECTIVE: The patient is admitted with left upper extremity swelling and redness which is getting better. No fever, no chills. Pain and swelling is still present. Pulses in the left upper extremity are good. No nausea or vomiting. Up and about. She was trying to walk. REVIEW OF SYSTEMS: CONSTITUTIONAL: No fever, no chills. HEENT: Normal. ENDOCRINE: No weight gain, no weight loss. CVS: No angina symptoms. No CHF symptoms. No palpitations. No atypical chest pain for CAD. No shortness of breath. No PND, no orthopnea. RESPIRATORY: No cough, no hemoptysis. GI: No nausea, no vomiting. No abdominal pain. : No hematuria. No polyuria. MUSCULOSKELETAL: Pain and swelling left upper extremity. PSYCHIATRIC: Not anxious. No depression. No suicidal thoughts. No homicidal thoughts. SKIN: Intact. No rash. PHYSICAL EXAMINATION: V/S: BP 122/72, respiratory rate 20, heart rate 86, temperature 97.2, saturation 94 on room air. HEENT: Normocephalic, atraumatic. Mucosa dry. Pallor positive. No icterus. NECK: Supple. No JVD, no carotid bruit. No lymphadenopathy. LUNGS: Bilateral entry is decreased with basilar crackles. No rales or rhonchi. HEART: S1, S2 normal. No S3. No murmur, gallop or regurgitation. ABDOMEN: Soft, nontender. Bowel sounds active. No rigidity. No rebound or guarding. No CVA tenderness. EXTREMITIES: Left upper extremity redness and swelling is present. Flexion and wrist movements are causing tenderness in the left upper extremity. Open wounds are dried up. No active secretions. 1+ edema. Multiple open wounds on the right lower extremity. No clubbing or cyanosis MUSCULOSKELETAL: No joint swelling. NEUROLOGIC: Awake, alert, oriented times three. No focal deficit. LYMPHATIC: No lymph nodes palpable. SKIN: Intact. LABS: Sodium 139, potassium 4.3, chloride 104, bicarb 25, BUN 14, creatinine 0.98. Glucose 158. White count 8.65, hemoglobin 10.8, hematocrit 36.7, platelet count 443. ASSESSMENT: 1. LEFT UPPER EXTREMITY CELLULITIS, RULE OUT DVT 2. ANEMIA 3. HISTORY OF DVT ON LONG-TERM ANTICOAGULATION 4. HISTORY OF TIA 5. SLEEP APNEA ON CPAP 6. MORBID OBESITY 7. DIABETES 8. OSTEOARTHRITIS 9. DJD SPINE PLAN: 1. Awaiting results on the Venous Doppler. 2. Gradual passive movements of the left upper extremity. 3. Rocephin 1 gm daily 4. Xarelto 20 mg p.o. daily 5. IV fluids at 50 mL/hr TIME SPENT: More than 35 minutes MTDD
--- NOTE | 2017-05-15 14:05 | PN ---
DATE OF SERVICE: 05/13/17 SUBJECTIVE: With left upper extremity cellulitis, left arm and forearm are still warm and red, tender to touch. No fever, no chills. Open wounds are present. Ultrasound did not show any clots. REVIEW OF SYSTEMS: CONSTITUTIONAL: No fever, no chills. HEENT: Normal. ENDOCRINE: No weight gain, no weight loss. CVS: No angina symptoms. No CHF symptoms. No palpitations. No atypical chest pain for CAD. No shortness of breath. No PND, no orthopnea. RESPIRATORY: No cough, no hemoptysis. GI: No nausea, no vomiting. No abdominal pain. : No hematuria. No polyuria. MUSCULOSKELETAL: No joint swelling. PSYCHIATRIC: Not anxious. No depression. No suicidal thoughts. No homicidal thoughts. SKIN: Open wounds are present. Left arm and forearm are still warm and red, PHYSICAL EXAMINATION: V/S: BP 144/67, respiratory rate 20, heart rate 90, temperature 98.5, saturation 93 on room air. HEENT: Normocephalic, atraumatic. Mucosa dry. Pallor positive. No icterus. NECK: Supple. No JVD, no carotid bruit. No lymphadenopathy. LUNGS: Bilateral entry is decreased and clear to auscultation. No rales or rhonchi. HEART: S1, S2 normal. No S3. No murmur, gallop or regurgitation. ABDOMEN: Soft, nontender. Bowel sounds active. No rigidity. No rebound or guarding. No CVA tenderness. EXTREMITIES: 1+ edema. Right leg has multiple open wounds which are all dry. Left upper extremity redness and swelling present. More swelling in the left arm than the left forearm. Open wounds are dry - two of them are present, one in the left arm and one left forearm about the size of a dime. Range of motion is decreased at the wrist. No clubbing or cyanosis MUSCULOSKELETAL: No joint swelling. NEUROLOGIC: Awake, alert, oriented times three. No focal deficit. LYMPHATIC: No lymph nodes palpable. SKIN: As above. LABS: White count 8.65, hemoglobin 10.8, hematocrit 36.7, platelet count 443. Sodium 139, potassium 4.3, chloride 104, bicarb 25, BUN 14, creatinine 0.98. ASSESSMENT: 1. LEFT UPPER EXTREMITY CELLULITIS WITH OPEN WOUNDS 2. NEGATIVE FOR DVT 3. HYPOTENSION 4. ANEMIA OF CHRONIC DISEASE 5. DIABETES 6. PERIPHERAL VASCULAR DISEASE 7. HISTORY OF LOWER EXTREMITY DVT ON LONG-TERM ANTICOAGULATION 8. DEPRESSION 9. ANXIETY PLAN: 1. 1 cc Decadron 2. Continue Rocephin 3. IV fluids 4. Accu-Checks with the coverage 5. Up to chair 6. Activity as tolerated TIME SPENT: More than 55 minutes today MTDD
--- NOTE | 2017-05-15 14:21 | ER ---
CHIEF COMPLAINT/HISTORY OF PRESENT ILLNESS: This 57-year-old female patient presented to the emergency room initially for evaluation of dizziness advising that her blood pressure had been checked at home and was found to be in the 80 systolic range. She has extensive history of vascular disease, cardiovascular disease therefore was brought to the emergency room for evaluation by her wonderful friends. On arrival to the emergency room, the blood pressure was 146/81, pulse rate 110 , 02 sat 92% with temperature of 99.2. She stated that while she was here she would like to be checked as well for her left arm pain. She states that two days ago she noticed that her left arm began hurting in the mid humeral region extending down to the elbow and now has progressed down into the forearm. In addition it is noted that her left arm is edematous in comparison to the right upper extremity. In the mid arm area there is erythema which blanches to pressure. It is markedly tender in this area to palpation extending from the dorsal aspect to the medial and lateral aspect. The elbow is normal as is the forearm. Full range of motion of the left upper extremity without reproduction of pain. The patient's medications are reviewed. Her past history and medications are reviewed. She states that she takes all of her medications as directed and has not missed any medications. She has a known past history of Davis's disease, vascular insufficiency of the extremities, previous deep venous thrombosis of the lower extremity. After the patient was evaluated and once all results were obtained, my concern that the swelling in her upper extremity could potentially be related to venous insufficiency and/or occlusion. CT scan was obtained which revealed evidence of subcutaneous ground glass appearance in the dorsal soft tissues of the proximal left forearm concerning for possible inflammatory versus infectious process. It is my impression that due to the patient's underlying history and current findings, that her current symptoms could be related to sudden onset of vascular insufficiency and/or occlusion of the left upper extremity, that further diagnostic investigation including Doppler ultrasound is warranted. Additionally, recommend that she begin on IV antibiotics empirically. I spoke with her attending physician, Dr. Cam and advises us to admit her and he will obtain a diagnostic ultrasound of her left upper extremity once available on Friday. Prior to that he recommends continue of current therapy and agrees with admitting her on IV antibiotics as well as maintenance medications as well as beginning Lovenox. GEOFFREY
--- NOTE | 2017-05-28 12:47 | DS ---
DATE OF SERVICE: 05/15/17 FINAL DIAGNOSIS: 1. Left upper extremity defused cellulitis, no DVT which is negative. Two open wounds 2. Noncompliance 3. Anemia of chronic disease 4. Diabetes 5. Dyslipidemia 6. Peripheral neuropathy 7. Peripheral vascular disease, status post FemPop 8. Right lower extremity multiple open wounds none infected at this time 9. TIA 10.History of Influenza A 11.Sleep apnea on CPAP 12.Osteoarthritis 13.DJD spine DISCHARGE INSTRUCTIONS: Discharge the patient home. Avoid picking at the scabs. Continue the rest of the home medications. MEDICATIONS AT DISCHARGE: Benadryl Pentoxifylline Albuterol Invokana Cilostazol Dicyclomine Lexapro Triglide Lasix Neurontin Hydrocodone Tresiba Lisinopril Metformin Remeron Movantik Zofran Protonix Potassium Chloride Xarelto NEW PRESCRIPTIONS: Clindamycin 300mg three times a day for 5 more days DIET INSTRUCTIONS: Cardiac and diabetic ACTIVITY: As much as tolerated SMOKING: Former smoker DISEASE SPECIFIC EDUCATION: Superficial wounds and risks of MRSA been discussed HOSPITAL COURSE: Francie Sanchez 57 year old female came to the emergency room as patient was having the left upper extremity swelling, redness and painful. The patient did have two open spots. The patient has a habit of picking at them. Redness and swelling gradually getting worse to the extent where she could not bend the arm or the wrist so came to the emergency and was seen by the ER physician. WBC was normal. CT of the arm showed some superficial cellulitis there was mild subcutaneous ground glass appearance. This may represent inflammatory versus infectious process. CT of the arm was negative. Admitted to the hospital and started on the IV antibiotics Rocephin was given. Vein obtained which was negative for the DVT. Gradually the swelling was getting better but the patient was having difficulty bending the left arm. Decadron shot was given. There was no compartment syndrome signs. No pain on the flexion or extension of the joints. Pulse or radial pulse is present. No fever or chills. Gradually the patient was getting better. Accu-checks been monitored. Did not have any complication. The patient is totally nonambulatory, sleeps most of the time. Encouraged her to be active in walking. The patient goes to the [facility] for depression. Redness, swelling and the wounds were healing and they are scabbed. Again the patient picked on them and removed the scab. Explained again not to do that as these infections can get worse and eventually the scabs got healing and at that time the patient being discharged home with Clindamycin orally. She will be followed in the [facility] within 5-7 days. TIME SPENT: MORE THAN 65 MINUTES MTDBenton
--- NOTE | 2017-05-29 14:32 | PN ---
DATE OF SERVICE: 05/14/17 SUBJECTIVE: The patient was admitted with left upper extremity cellulitis and swelling. DVT is negative. Redness and swelling are a lot improved, but still we can see the redness more on the left arm and left upper forearm. No fever or chills. She is up and about walking. REVIEW OF SYSTEMS: CONSTITUTIONAL: No fever, no chills. HEENT: Normal. ENDOCRINE: No weight gain, no weight loss. CVS: No angina symptoms. No CHF symptoms. No palpitations. No atypical chest pain for CAD. No shortness of breath. No PND, no orthopnea. RESPIRATORY: No cough, no hemoptysis. GI: No nausea, no vomiting. No abdominal pain. : No hematuria. No polyuria. MUSCULOSKELETAL: Redness and swelling of the left arm and left upper forearm. PSYCHIATRIC: Not anxious. No depression. No suicidal thoughts. No homicidal thoughts. SKIN: Intact. No rash. PHYSICAL EXAMINATION: V/S: Blood pressure 143/73, respiratory rate 24, heart rate 83, temperature 98.4 , saturation 95. HEENT: Normocephalic, atraumatic. Mucosa dry. Pallor positive. No icterus. NECK: Supple. No JVD, no carotid bruit. No lymphadenopathy. LUNGS: Clear to auscultation. No rales or rhonchi. HEART: S1, S2 normal. No S3. No murmur, gallop or regurgitation. ABDOMEN: Soft, nontender. Bowel sounds active. No rigidity. No rebound or guarding. No CVA tenderness. EXTREMITIES: Left upper extremity redness is present in the left forearm and the left arm. Blanchable redness. Some tenderness on the open sores. Open sores, again, there are two of them. One in the left upper forearm and one in the left lower arm. Dime sized. Healthy and healing good. No pedal edema. No clubbing or cyanosis MUSCULOSKELETAL: Right lower extremity has multiple open wounds, which are dry. NEUROLOGIC: Awake, alert, oriented times three. No focal deficit. LYMPHATIC: No lymph nodes palpable. SKIN: Intact. LABS: White count 8.65, hemoglobin 10.8, hematocrit 36.7, platelet count 443, sodium 139, potassium 4.3, chloride 104, bicarb 25, BUN 14, creatinine 0.98. ASSESSMENT: 1. LEFT UPPER EXTREMITY CELLULITIS, NO COMPARTMENT SYNDROME, NO DVT 2. CHRONIC ANEMIA 3. RIGHT LOWER EXTREMITY MULTIPLE WOUNDS. GOES TO WOUND CARE. 4. PERIPHERAL ARTERIAL DISEASE 5. DIABETES 6. HYPERTENSION 7. OBESITY 8. DYSLIPIDEMIA 9. NONCOMPLIANCE PLAN: 1. Continue the Clindamycin. 2. Stop the Rocephin and start the Keflex. 3. Gradual exercise of the left arm was discussed. 4. Out of bed to chair. 5. Accu-checks with the coverage. TIME SPENT: More than 35 minutes MTDD
== END 2017-05-15 10:59 | disposition home or self-care (01) | DRG 603 ==
LOC: ED 13:23 → MEDSURG A 18:09
PROVIDERS: ADMIT Emergency Medicine; ATTEND Emergency Medicine
DX: L03.114 Cellulitis of left upper limb (principal); I10 Essential (primary) hypertension; I99.8 Other disorder of circulatory system; R60.9 Edema, unspecified; Z86.718 Personal history of other venous thrombosis and embolism; R51 Headache; E78.5 Hyperlipidemia, unspecified; E11.9 Type 2 diabetes mellitus without complications; Z79.84 Long term (current) use of oral hypoglycemic drugs; J44.9 Chronic obstructive pulmonary disease, unspecified; K21.9 Gastro-esophageal reflux disease without esophagitis; Z86.73 Personal history of transient ischemic attack (TIA), and cerebral infarction without residual deficits; Z85.038 Personal history of other malignant neoplasm of large intestine; Z87.891 Personal history of nicotine dependence; S51.802A Unspecified open wound of left forearm, initial encounter; Z91.14 Patient's other noncompliance with medication regimen; D63.8 Anemia in other chronic diseases classified elsewhere; G62.9 Polyneuropathy, unspecified; S81.801A Unspecified open wound, right lower leg, initial encounter; G47.30 Sleep apnea, unspecified; M19.90 Unspecified osteoarthritis, unspecified site; M47.9 Spondylosis, unspecified
CPT/HCPCS: 36415; 80053; 81001; 82962; 85025; 85379; 87086; 99223; 99233; 99239; 99284

== ENCOUNTER 2017-05-20 15:55 | Outpatient (CLI) | END 2017-05-20 15:56 | disposition short-term general hospital (02) | LOC: AMBL 15:55 | PROVIDERS: ATTEND Emergency Medicine | DX: R06.02 Shortness of breath (principal); R23.0 Cyanosis ==

== ENCOUNTER 2017-06-09 14:02 | Outpatient (CLI) | END 2017-06-09 14:03 | disposition home or self-care (01) | LOC: RHC-LAB 14:02 | PROVIDERS: ATTEND Emergency Medicine | DX: E11.9 Type 2 diabetes mellitus without complications (principal) | CPT/HCPCS: 36415; 80053 ==

== ENCOUNTER → 2017-06-11 | Outpatient (RCR) | payer OTHER | LOC: NEWBEG 05-15 08:00 | PROVIDERS: ATTEND Psychiatry & Neurology Psychiatry | DX: F33.1 Major depressive disorder, recurrent, moderate (principal); F41.9 Anxiety disorder, unspecified; F43.10 Post-traumatic stress disorder, unspecified | CPT/HCPCS: 90853; 99214 ==

== ENCOUNTER 2017-07-09 10:00 | Outpatient (RCR) | END 2017-07-12 | LOC: NEWBEG 10:00 | PROVIDERS: ATTEND Psychiatry & Neurology Psychiatry | DX: F33.1 Major depressive disorder, recurrent, moderate (principal); F41.9 Anxiety disorder, unspecified; F43.10 Post-traumatic stress disorder, unspecified | CPT/HCPCS: 90853; 99213 ==

== ENCOUNTER 2017-08-08 10:00 | Outpatient (RCR) | END 2017-08-11 23:59 | LOC: NEWBEG 10:00 | PROVIDERS: ATTEND Psychiatry & Neurology Psychiatry | DX: F33.1 Major depressive disorder, recurrent, moderate (principal); F41.9 Anxiety disorder, unspecified; F43.10 Post-traumatic stress disorder, unspecified | CPT/HCPCS: 90853; 99214 ==

== ENCOUNTER 2017-09-05 10:00 | Outpatient (RCR) | END 2017-09-11 23:59 | LOC: NEWBEG 10:00 | PROVIDERS: ATTEND Psychiatry & Neurology Psychiatry | DX: F33.1 Major depressive disorder, recurrent, moderate (principal); F41.9 Anxiety disorder, unspecified; F60.9 Personality disorder, unspecified; F43.10 Post-traumatic stress disorder, unspecified | CPT/HCPCS: 90853; 99214 ==

== ENCOUNTER 2017-09-28 08:37 | Inpatient (IN) | payer OTHER ==
--- NOTE | 2017-09-28 09:33 | CT ---
EXAM: CT of the abdomen pelvis without contrast History: Diarrhea, nausea and vomiting, epigastric abdominal pain and chest pain. Comparison: None available. Technique: Multiplanar CT images through the abdomen and pelvis were obtained without the administra tion of IV contrast Findings: Motion artifact compromises image quality. Subsegmental atelectasis is seen within the lo wer lungs. No acute osseous abnormalities. Severe degenerative disc disease within the upper lumbar spine. The liver is fatty. Status post cholecystectomy. Evaluation of the spleen and pancreas is very limit ed due to the motion artifact but without obvious abnormality. Atherosclerotic vascular calcification . Adrenal glands are unremarkable. No renal stones and no hydronephrosis. No dilated loops of dorcas l. The visualized appendix is not dilated or inflamed. No free air. Bladder is not well distended. Postsurgical changes of the sigmoid colon. 2.8 cm partially calcified left adnexal lesion may repr esent a uterine fibroid. No perirectal inflammation. 2.8 cm aneurysm of the right common femoral ar [place] is seen within the right groin. Impression: 1. No acute intra-abdominal or pelvic process identified within limitations of the motion artifact. 2. Hepatic steatosis. 3. Probable calcified uterine fibroid. 4. 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
[2017-09-28] MEDS ORDERED: PHENERGAN 25 MG/ML VIAL 25 MG in SODIUM CHLORIDE 50 ML IV STA (09:59)
[2017-09-28] MEDS ORDERED: PHENERGAN 25 MG/ML VIAL ONE (10:01)
--- NOTE | 2017-09-28 11:33 | CT ---
EXAM: CTA of the chest. History: Chest pain. Comparison: Chest radiograph 05/10/2079, chest CT 04/09/2017 Technique: Multiplanar CT images through the thorax were obtained following administration of IV con trast. MIP images and 3-D reconstructions were also acquired. Findings: Heart size is upper limits of normal. There is motion artifact through the proximal thorac ic aorta and main pulmonary artery. No thoracic aortic aneurysm. No pulmonary arterial filling defe cts. No change in the diffuse thyroid enlargement. No pathologically enlarged thoracic lymph nodes. No consolidation. No pleural fluid and no pneumothorax. Bibasilar subsegmental atelectasis. No palomino spicious lung masses or lung nodules. Within the visualized upper abdomen, hepatic steatosis. Status post cholecystectomy. No acute osseo us abnormalities. Postsurgical changes of the cervical spine. Degenerative changes of the spine. S evere degenerative disc disease at L2-L3 and mild retrolisthesis of L2 on L3. Impression: 1. No pulmonary embolism and no evidence for pneumonia. 2. Basilar subsegmental atelectasis. 3. Hepatic steatosis. 4. Degenerative changes of the spine. 5. Thyromegaly.
--- NOTE | 2017-09-28 12:03 | ED.PDOC ---
General ED Provider: Dr. ANDREE MITCHELL Chief Complaint: Diarrhea Stated Complaint: DIARRHEA , EPIGASTRIC PAIN Time Seen by Physician: 08:45 Mode of Arrival: Walk-In Information Source: Patient Exam Limitations: No limitations [facility] Nursing and Triage Documentation Reviewed and Agree: Yes Reviewed sepsis parameters & appropriate labs ordered?: Yes System Inflammatory Response Syndrome: Not Applicable Sepsis Protocol: For patient's 13 years and over: Temp is 96.8 and below OR 101 and greater Pulse >90 BPM Resp >20/minute Acutely Altered Mental Status Are patient's symptoms suggestive of a new infection, such as: -Pneumonia -Skin, Soft Tissue -Endocarditis -UTI -Bone, Joint Infection -Implantable Device -Acute Abdominal Infection -Wound Infection -Meningitis -Blood Stream Catheter Infection -Unknown GI Complaint Exam - Abdominal Pain Complaint/Exam Onset: Gradual Duration: 1 WEEK Symptoms Are: Still present Timing: Intermittent Initial Severity: Mild Current Severity: Mild Location of Pain: Epigastric Radiates To: Denies: Chest, Back, Flank, LLQ, RLQ, Inguinal Character: Reports: Aching, Cramping Aggravating: Reports: None Alleviating: Reports: None Associated Signs and Symptoms: Reports: Cough. Denies: Diaphoresis, Fever, Chest pain, Dizziness, Back pain, Constipation, Blood in stool, Dysuria, Urinary frequency, Decreased urine output, Decreased appetite, Vaginal bleeding , Vaginal discharge, Nausea, Vomiting, Diarrhea, Sore throat, Decreased activity Related History: Reports: Similar episode (ALSO SHORT OF BREATH) AAA Risk Factors: Reports: Atherosclerosis Cardiac Risk Factors: Reports: DM (COPD) Ovarian Torsion Risk Factors: Reports: None Surgical Obstruction Risk Factors: Reports: None Related Surgical History: Reports: None Patient Rh Status: Unknown Abdominal Findings: Present: None Female Body Picture: 1 - PAIN BUT NEGATIVE EXAM Differential Diagnoses: Appendicitis, Bowel Obstruction, Constipation, Diverticulitis, Gastroenteritis, Renal Colic, Ureteral Stone, GB, UTI Quality Indicators for AMI: EKG in 10min. Quality Indicators for Cardiac Chest Pain: EKG in 10min. Quality Indicator For Non-Traumatic Chest Pain/Syncope: EKG Performed Review of Systems - Review Of Systems Constitutional: Reports: No symptoms Eyes: Reports: No symptoms Ears, Nose, Mouth, Throat: Reports: No symptoms Respiratory: Reports: No symptoms Cardiac: Reports: No symptoms GI: Reports: No symptoms : Reports: No symptoms Musculoskeletal: Reports: No symptoms Skin: Reports: Rash ( PT HAS A CHRONIC RASH ON THE ABDOMEN LEGS WHICH SHE SCRATCHES SEE PHOTOS, ABRASION ON THE KNEE ARE FROM SCRATCHING THE RASH) Neurological: Reports: No symptoms Endocrine: Reports: No symptoms Hematologic/Lymphatic: Reports: No symptoms All Other Systems: Reviewed and Negative Past Medical History - Past Medical History Previously Healthy: No (Numerous problems; vascular surgeries bilateral LEs) Endocrine: Reports: DM 2 Cardiovascular: Reports: Other (vascular insufficiency bilat LEs/DVT) Respiratory: Reports: None, COPD Hematological: Reports: None, Anemia Gastrointestinal: Reports: None, GERD Genitourinary: Reports: None, UTI Neuro/Psych: Reports: CVA Musculoskeletal: Reports: None Cancer: Reports: Colon Last Menstrual Period: none - Surgical History General Surgical History: Reports: Cholecystectomy, Unknown (Colon CA; multiple LE vascular surgeries) - Family History Family History: Reports: Unknown - Social History Smoking Status: Former smoker Hx Substance Use: No Alcohol Screening: None - Immunizations Tetanus Shot up to Date: Yes Physical Exam - Physical Exam Appearance: Well-appearing, No pain distress, Well-nourished Eyes: MILLIE, EOMI, Conjunctiva clear ENT: Ears normal, Nose normal, Oropharynx normal Respiratory: Airway patent, Breath sounds clear, Breath sounds equal, Respirations nonlabored Cardiovascular: RRR, Pulses normal, No rub, No murmur GI/: Soft, Nontender, No masses, Bowel sounds normal, No Organomegaly Musculoskeletal: Normal strength, ROM intact, No edema, No calf tenderness Skin: Warm, Dry (SEE THE PHOTOS) Neurological: Sensation intact, Motor intact, Reflexes intact, Cranial nerves intact, Alert, Oriented Psychiatric: Affect appropriate, Mood appropriate Interpretation - Radiology Interpretation Radiology Interpretation By: Radiologist Radiology Results: No acute changes (NEGAIVE PE) - 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 Rate: Normal Rhythm: Sinus Ectopy: None - EKG Interpretation Rate: Normal Rhythm: Sinus Ectopy: None Crane: Left (RBBB) ST Segment: Normal (EXCEPT FOR THE TINVERSION BUT THAT IS MAINLY DUE TO R.B.B.) Physician Notification - Case Discussed Physician Notified: PMD Time of Notification: 12:08 Critical Care Note - Critical Care Note Total Time (mins): 0 Course - Course Hematology/Chemistry: 09/28/17 09:35 09/28/17 09:35 Orders, Labs, Meds: Lab Review 09/28/17 09/28/17 09:35 09:35 WBC 6.35 RBC 5.00 Hgb 13.8 Hct 41.6 MCV 83.2 MCH 27.6 MCHC 33.2 RDW Coeff of Cathy 13.3 Plt Count 334 Immature Gran % (Auto) 0.3 Neut % (Auto) 68.0 Lymph % (Auto) 23.1 [place] % (Auto) 6.6 Eos % (Auto) 1.4 Baso % (Auto) 0.6 Immature Gran # (Auto) 0.0 Neut # (Auto) 4.3 Lymph # (Auto) 1.5 [place] # (Auto) 0.4 Eos # (Auto) 0.1 Baso # (Auto) 0.0 Sodium 142 Potassium 2.8 L Chloride 106 Carbon Dioxide 25 Anion Gap 13.8 BUN 8 Creatinine 0.79 Estimated GFR (MDRD) 75.00 BUN/Creatinine Ratio 10.12 Glucose 121 H Calcium 9.7 Total Bilirubin 0.4 AST 14 L ALT 12 Alkaline Phosphatase 67 Total Creatine Kinase 59 Troponin I 0.0150 Total Protein 7.4 Albumin 3.5 Globulin 3.9 Albumin/Globulin Ratio 0.90 Orders Category Date Time Status EKG-(ED ONLY) Stat CARDIO 09/28/17 08:56 Completed C-DIFF MONITORING (NURSING) BID CARE 09/28/17 08:57 Active NPO REMINDER: IMAGING ONCE CARE 09/28/17 10:35 Active CBC W/ AUTO DIFF Stat LAB 09/28/17 09:35 Completed COMPREHENSIVE METABOLIC PANEL Stat LAB 09/28/17 09:35 Completed CREATINE KINASE Stat LAB 09/28/17 09:35 Completed MISCELLANEOUS SEND OUT Routine LAB 09/28/17 09:35 Received TROPONIN I Stat LAB 09/28/17 09:35 Completed URINALYSIS C & S IF INDICATED Stat LAB 09/28/17 09:09 Ordered c-diff [C. DIFFICILE] Routine LAB 09/28/17 08:57 Uncollected Promethazine HCl [Phenergan 25 mg/ml Vial] MEDS 09/28/17 10:01 Discontinued 25 mg .ROUTE .STK-MED ONE Promethazine HCl [Phenergan 25 mg/ml Vial] 25 mg MEDS 09/28/17 09:59 Discontinued 0.9 % Sodium Chloride [Sodium Chloride] [address] ABDOMEN/PELVIS WO CONTRAST Stat RADS 09/28/17 08:[address] CHEST PE PROTOCOL Stat RADS 09/28/17 10:34 Completed Medications Discontinued Medications Generic Name Dose Route Start Last Admin Trade Name Ruth PRN Reason Stop Dose Admin Promethazine HCl 25 mg/ Sodium 51 mls @ 75 mls/hr 09/28/17 09:59 09/28/17 10: 07 Chloride IV 09/28/17 10:39 75 mls/hr ONCE STA Administration Vital Signs: Temp Pulse Resp BP Pulse Ox 09/28/17 08:38 98.2 F 74 16 165/98 H 95 Departure - Departure Time of Disposition: 12:07 Disposition: ADMITTED INPATIENT Discharge Problem: Diarrhea Chest pain Qualifiers: Chest pain type: unspecified Qualified Code(s): R07.9 - Chest pain, unspecified Condition: Good Pt referred to PMD for follow-up: Yes IPMP verified?: No Additional Instructions: Please call your Family Physician as soon as possible to schedule a follow-up appointment. Allergies/Adverse Reactions: Allergies Penicillins Allergy (Severe, Verified 05/10/17 13:35) throat swells Patient will notify drugstore Home Medications: Ambulatory Orders Albuterol Sulfate [Proair Hfa] 2 puff IH Q4H PRN 10/28/16 Dicyclomine HCl 10 mg PO TID 10/28/16 Diphenhydramine HCl 50 mg PO Q6HR PRN 10/28/16 Mirtazapine [Remeron] 15 mg PO BEDTIME 04/09/17 Prazosin HCl [Minipress] 1 mg PO BEDTIME 06/04/17 Disposition Discussed With: Patient
[2017-09-28] MEDS ORDERED: PROAIR HFA IH PRN (12:40)
[2017-09-28] MEDS ORDERED: CITRATE OF MAGNESIA PO PRN (13:00)
[2017-09-28] MEDS ORDERED: SODIUM CHLORIDE 1,000 ML IV SCH (13:00)
[2017-09-28 14:06] VITALS: BMI 46.0
[2017-09-28] MEDS ORDERED: K-DUR PO STA (14:51)
[2017-09-28] MEDS ORDERED: PROTONIX PO PRN (14:53)
[2017-09-28] MEDS ORDERED: BENADRYL PO PRN (14:53)
[2017-09-28] MEDS ORDERED: POTASSIUM CHL 10% ORAL SOL ONE (15:10)
[2017-09-28] MEDS ORDERED: POTASSIUM CHLORIDE 20 MEQ VIAL-ADDITIVE ONLY IV ONE (15:11)
[2017-09-28] MEDS: SODIUM CHLORIDE 0.9%-KCL 40MEQ 1,000 ML IV SCH (15:21)
[2017-09-28] MEDS ORDERED: NEURONTIN ONE (18:20)
[2017-09-28] MEDS: BENTYL PO SCH ×2 (18:46→21:18)
[2017-09-28] MEDS: CARAFATE PO SCH (18:47)
[2017-09-28] MEDS: NON-FORMULARY MEDICATION (Gabapentin [Gabapentin] 600 MG) PO SCH ×2 (18:53→21:28)
[2017-09-28] MEDS ORDERED: GLUCOPHAGE PO SCH (21:00)
[2017-09-28] MEDS ORDERED: COREG PO SCH (21:00)
[2017-09-28] MEDS ORDERED: NON-FORMULARY MEDICATION (Simvastatin [Simvastatin] 20 MG) PO SCH (21:00)
[2017-09-28] MEDS ORDERED: NON-FORMULARY MEDICATION (Ropinirole Hcl [Requip] 0.5 MG) PO SCH (21:00)
[2017-09-28] MEDS ORDERED: COREG ONE (21:14)
[2017-09-28] MEDS ORDERED: REQUIP ONE (21:15)
[2017-09-28] MEDS ORDERED: ZOCOR ONE (21:16)
[2017-09-28] MEDS: REMERON PO SCH (21:19)
[2017-09-28] MEDS: TRENTAL PO SCH (21:21)
[2017-09-28] MEDS: PLETAL PO SCH (21:21)
[2017-09-28] MEDS: NORCO 10-325 PO SCH (21:21)
[2017-09-28] MEDS: MINIPRESS PO SCH (21:39)
[2017-09-29] MEDS ORDERED: POTASSIUM CHLORIDE 20 MEQ VIAL-ADDITIVE ONLY IV ONE (05:37)
[2017-09-29] MEDS: CARAFATE PO SCH ×3 (06:15→18:09)
[2017-09-29] MEDS: TRENTAL PO SCH ×3 (06:24→21:18)
[2017-09-29] MEDS ORDERED: K-DUR PO STA (08:08)
[2017-09-29] MEDS ORDERED: NON-FORMULARY MEDICATION (Rivaroxaban [Xarelto] 20 MG) PO SCH (09:00)
[2017-09-29] MEDS ORDERED: NON-FORMULARY MEDICATION (Potassium Chloride [Potassium Chloride] 10 MEQ) PO SCH (09:00)
[2017-09-29] MEDS ORDERED: NON-FORMULARY MEDICATION (Canagliflozin [Invokana] 300 MG) PO SCH (09:00)
[2017-09-29] MEDS: MICRO-K CAP PO SCH (09:06)
[2017-09-29] MEDS: XARELTO PO SCH (09:06)
[2017-09-29] MEDS: PLETAL PO SCH ×2 (09:06→23:14)
[2017-09-29] MEDS: NORCO 10-325 PO SCH ×2 (09:07→21:18)
[2017-09-29] MEDS: GLUCOPHAGE PO SCH ×2 (09:07→18:09)
[2017-09-29] MEDS: LASIX TAB PO SCH (09:07)
[2017-09-29] MEDS: BENTYL PO SCH ×3 (09:07→21:16)
[2017-09-29] MEDS: COREG PO SCH ×2 (09:08→18:09)
[2017-09-29] MEDS: ZESTRIL PO SCH (09:08)
[2017-09-29] MEDS: NEURONTIN PO SCH ×3 (09:08→21:17)
[2017-09-29] MEDS: TRIGLIDE PO SCH (09:09)
[2017-09-29] MEDS: NALOXEGOL OXALATE 25 MG PO SCH (13:13)
[2017-09-29] MEDS: TYLENOL PO PRN (15:03)
[2017-09-29] MEDS: JARDIANCE PO SCH (15:04)
[2017-09-29] MEDS: INSULIN DEGLUDEC 10 UNIT SQ SCH (15:05)
[2017-09-29] MEDS: SODIUM CHLORIDE 0.9%-KCL 40MEQ 1,000 ML IV SCH (19:10)
[2017-09-29] MEDS: REQUIP PO SCH (21:17)
[2017-09-29] MEDS: REMERON PO SCH (21:17)
[2017-09-29] MEDS: MINIPRESS PO SCH (21:17)
[2017-09-29] MEDS: ZOCOR PO SCH (21:18)
[2017-09-30] MEDS: TRENTAL PO SCH ×3 (04:33→21:35)
[2017-09-30] MEDS: CARAFATE PO SCH ×3 (05:40→17:00)
[2017-09-30] MEDS: LASIX TAB PO SCH (05:40)
[2017-09-30] MEDS: TRIGLIDE PO SCH (08:11)
[2017-09-30] MEDS: PLETAL PO SCH ×2 (08:12→21:35)
[2017-09-30] MEDS: ZESTRIL PO SCH (08:12)
[2017-09-30] MEDS: JARDIANCE PO SCH (08:13)
[2017-09-30] MEDS: BENTYL PO SCH ×3 (08:13→21:36)
[2017-09-30] MEDS: XARELTO PO SCH (08:14)
[2017-09-30] MEDS: MICRO-K CAP PO SCH (08:14)
[2017-09-30] MEDS: NALOXEGOL OXALATE 25 MG PO SCH (08:14)
[2017-09-30] MEDS: GLUCOPHAGE PO SCH ×2 (08:14→17:30)
[2017-09-30] MEDS: NEURONTIN PO SCH ×3 (08:14→21:37)
[2017-09-30] MEDS: COREG PO SCH ×2 (08:14→17:30)
[2017-09-30] MEDS: GI COCKTAIL PO SCH ×2 (08:42→21:35)
[2017-09-30] MEDS: ZOFRAN 4 MG/2 ML IVP SCH ×3 (08:42→22:20)
[2017-09-30] MEDS: PROTONIX IV IVP SCH (08:42)
[2017-09-30] MEDS: NORCO 10-325 PO SCH ×2 (09:00→21:35)
[2017-09-30] MEDS: SODIUM CHLORIDE 0.9%-KCL 40MEQ 1,000 ML IV SCH ×2 (09:16→23:04)
[2017-09-30] MEDS: TYLENOL PO PRN (09:46)
--- NOTE | 2017-09-30 11:53 | PN ---
DATE OF SERVICE: 09/29/17 SUBJECTIVE: Still having diarrhea, had the two episode with no more chest pain. Some coughing and congestion is present. REVIEW OF SYSTEMS: CONSTITUTIONAL: No fever, no chills. HEENT: Normal. ENDOCRINE: No weight gain, no weight loss. CVS: No angina symptoms. No CHF symptoms. No palpitations. No atypical chest pain for CAD. No shortness of breath. No PND, no orthopnea. RESPIRATORY: Cough, no hemoptysis. GI: No nausea, no vomiting. No abdominal pain. : No hematuria. No polyuria. MUSCULOSKELETAL: No joint swelling. PSYCHIATRIC: Not anxious. No depression. No suicidal thoughts. No homicidal thoughts. SKIN: Intact. No rash. PHYSICAL EXAMINATION: V/S: Blood pressure 106/69, respiratory rate 18, heart rate 66, temperature 97.5 with saturation 97%. HEENT: Normocephalic, atraumatic. Mucosa dry. NECK: Supple. No JVD, no carotid bruit. No lymphadenopathy. LUNGS: Clear to auscultation. No rales or rhonchi. HEART: S1, S2 normal. No S3. No murmur, gallop or regurgitation. ABDOMEN: Soft, Discomfort is present. Bowel sounds active. No rigidity. No rebound or guarding. No CVA tenderness. EXTREMITIES: No cyanosis, clubbing or pedal edema. MUSCULOSKELETAL: No joint swelling. NEUROLOGIC: Awake, alert, oriented times three. No focal deficit. LYMPHATIC: No lymph nodes palpable. SKIN: Intact. LABS: WBC 7.80, hgb 13.2, hct 40.1, plt count 299, sodium 145, potassium 3.1, chloride 109, bicarb 26, BUN 9, creatinine 0.80and glucose 99. ASSESSMENT: 1. Acute gastroenteritis 2. Severe hypokalemia 3. Chest tightness 4. Peripheral vascular disease 5. Depression 6. Anxiety PLAN: 1. 40mg PO Potassium 2. Will recheck the Magnesium and Potassium 3. Continue Xarelto 4. Potassium IV at 75ml per hour 5. Daily I&O's TIME SPENT: More than 35 minutes MTDD
[2017-09-30] MEDS: INSULIN DEGLUDEC 10 UNIT SQ SCH (12:00)
--- NOTE | 2017-09-30 13:16 | HP ---
DATE OF SERVICE: 09/28/17 CHIEF COMPLAINT: Diarrhea HISTORY OF PRESENT ILLNESS: The patient has been having diarrhea for 4-5 days water diarrhea, abdominal cramping, bloating and started having some chest pain, shortness of breath today heaviness in the chest. Pain is more like heaviness rather than the pain. Does not radiate and no aggravating or relieving factors. Came and saw Dr. Murillo in the emergency room. EKG normal sinus rhythm. Potassium was 2.8 at that time the patient was admitted to the hospital for the Gastroenteritis, dehydration, severe hypokalemia and chest tightness. REVIEW OF SYSTEMS: CONSTITUTIONAL: No fever, no chills. Weakness and tiredness. HEENT: Normal. ENDOCRINE: No weight gain; no weight loss. CVS: No chest pain. No PND, no orthopnea. Shortness of breath. No PND, no orthopnea. RESPIRATORY: No cough, no congestion. No hemoptysis. GI: No nausea, no vomiting. Abdominal cramping. No melena. Diarrhea. : No hematuria. No polyuria. MUSCULOSKELETAL: No joint swelling. PSYCHIATRIC: Not anxious. Depression. No suicidal thoughts. No homicidal thoughts. SKIN: Intact, no open lesions. PAST MEDICAL HISTORY: CAD status post vascular surgeries History of DVT Palpitation TIA Obstruction sleep apnea on CPAP GERD Constipation Osteoarthritis DJD spine Depression Anxiety PAST SURGICAL HISTORY: 15 leg surgery for the vascular problems Tonsillectomy Colon resection PERSONAL HISTORY: The patient does not smoke, drink or no drugs. FAMILY HISTORY: Diabetes Thyroid problems Cancer MEDICATIONS: Dicyclomine ProAir Diphenhydramine Hydrocodone Remeron Minipress Cilostazol Triglide Metformin Ropinirole Tresiba Xarelto Coreg Naloxegol Oxalate Magnesium Lisinopril Pantoprazole Sucralfate Simvastatin Canagliflozin Potassium Furosemide Pentoxifylline Gabapentin Tylenol ALLERGIES: Penicillin PHYSICAL EXAMINATION: V/S: Blood pressure 165/98, respiratory rate 16m, heart rate 74, temperature 98.2 with saturation 95%. GENERAL: Sick looking lady laying in the bed and not in any distress. HEENT: Atraumatic, normocephalic. No scleral icterus. Pallor positive. Mucosa dry. NECK: Supple. No JVD, no bruit. No lymphadenopathy. No thyromegaly. HEART: S1, S2 normal. No murmur. No cyanosis or clubbing. No ascites. LUNGS: Clear to auscultation. No rales or rhonchi. ABDOMEN: Soft, discomfort all over the belly. Bowel sounds are active. No CVA tenderness. No rigidity or guarding. EXTREMITIES: No pedal edema. No cyanosis or clubbing MUSCULOSKELETAL: Normal joints, no swelling. NEUROLOGIC: The patient is SKIN: Intact; no open lesions. LYMPHATIC: No lymph nodes palpable. LABS: Sodium 140, potassium 2.8, chloride 106, bicarb 25, BUN 8, creatinine 0.79, glucose 121, WBC 6.35, hgb 13.8, hct 41.6, plt count 334. CT of abdomen showed the Hepatitic steatosis, probable calcified uterine fibroid and 2.8cm aneurysm was seen in the CT of abdomen. CT chest showed bibasilar segmental atelectasis, Hepatic steatosis, DJD spine and thyromegaly. ASSESSMENT: 1. Acute gastroenteritis 2. Dehydration 3. Severe hypokalemia 4. Hypertension 5. Dyslipidemia 6. Osteoarthritis 7. DJD spine 8. Depression 9. Anxiety disorder PLAN: 1. Admit the patient to the regular floor 2. CBC and CMP today and daily 3. Replace the Potassium 4. Accu-checks with coverage 5. Keep the legs elevated 6. Continue the rest of the home medications. Will follow the patient in daily rounds. TIME SPENT: MORE THAN 75 minutes MTDD
[2017-09-30] MEDS: REQUIP PO SCH (21:36)
[2017-09-30] MEDS: ZOCOR PO SCH (21:36)
[2017-09-30] MEDS: REMERON PO SCH (21:37)
[2017-09-30] MEDS: MINIPRESS PO SCH (21:37)
[2017-10-01] MEDS: ZOFRAN 4 MG/2 ML IVP SCH (02:30)
[2017-10-01 05:22] VITALS: TEMP 97.8
[2017-10-01] MEDS: LASIX TAB PO SCH (06:17)
[2017-10-01] MEDS: CARAFATE PO SCH (06:17)
[2017-10-01] MEDS: TRENTAL PO SCH (06:19)
[2017-10-01] MEDS: PROTONIX IV IVP SCH (08:18)
[2017-10-01] MEDS: GLUCOPHAGE PO SCH (08:20)
[2017-10-01] MEDS: MICRO-K CAP PO SCH (08:20)
[2017-10-01] MEDS: COREG PO SCH (08:21)
[2017-10-01] MEDS: TRIGLIDE PO SCH (08:21)
[2017-10-01] MEDS: ZESTRIL PO SCH (08:21)
[2017-10-01] MEDS: JARDIANCE PO SCH (08:21)
[2017-10-01] MEDS: NEURONTIN PO SCH (08:21)
[2017-10-01] MEDS: BENTYL PO SCH (08:21)
[2017-10-01] MEDS: NORCO 10-325 PO SCH (08:21)
[2017-10-01] MEDS: PLETAL PO SCH (08:21)
[2017-10-01] MEDS: XARELTO PO SCH (08:22)
[2017-10-01] MEDS: NALOXEGOL OXALATE 25 MG PO SCH (08:22)
--- NOTE | 2017-10-01 08:37 | PN ---
DATE OF SERVICE: 09/30/17 SUBJECTIVE: Diarrhea is somewhat better, had two bowel movements. Still short of breath. Chest tightness is improved with no fever and chills. REVIEW OF SYSTEMS: CONSTITUTIONAL: No fever, no chills. HEENT: Normal. ENDOCRINE: No weight gain, no weight loss. CVS: No angina symptoms. No CHF symptoms. No palpitations. No atypical chest pain for CAD. No shortness of breath. No PND, no orthopnea. RESPIRATORY: No cough, no hemoptysis. GI: No nausea, no vomiting. No abdominal pain. : No hematuria. No polyuria. MUSCULOSKELETAL: No joint swelling. PSYCHIATRIC: Not anxious. No depression. No suicidal thoughts. No homicidal thoughts. SKIN: Intact. No rash. PHYSICAL EXAMINATION: V/S: Blood pressure 118/73, respiratory rate 20, heart rate 75, temperature 98.2 and saturation 95%. HEENT: Normocephalic, atraumatic. Mucosa dry. Pallor positive. NECK: Supple. No JVD, no carotid bruit. No lymphadenopathy. LUNGS: Clear to auscultation. No rales or rhonchi. HEART: S1, S2 normal. No S3. No murmur, gallop or regurgitation. ABDOMEN: Soft, nontender. Bowel sounds active. No rigidity. No rebound or guarding. No CVA tenderness. Epigastric discomfort is present. EXTREMITIES: No cyanosis, clubbing or pedal edema. MUSCULOSKELETAL: No joint swelling. NEUROLOGIC: Awake, alert, oriented times three. No focal deficit. LYMPHATIC: No lymph nodes palpable. SKIN: Intact. LABS: WBC 6.33, hgb 12.9, hct 40.2, plt count 299, sodium 145, potassium 3.7, chloride 113, bicarb 23, BUN 10, creatinine 0.77 and glucose 101. ASSESSMENT: 1. Acute gastroenteritis 2. Dehydration 4. Hypokalemia 5. Peripheral vascular disease 6. Depression 7. Anxiety PLAN: 1. Continue IV fluids 2. Replace the Potassium 3. Lovenox for the DVT prophylaxis 4. Continue the home medication 5. Protonix. TIME SPENT: More than 35 minutes MTDD
[2017-10-01 10:03] VITALS: BP 122/75
--- NOTE | 2017-10-02 13:48 | DS ---
DATE OF SERVICE: 10/01/17 FINAL DIAGNOSIS: 1. Acute gastroenteritis 2. Severe hypokalemia 3. Gastritis 4. Peripheral vascular disease with multiple stents 5. Depression 6. Anxiety 7. Morbid obesity 8. Diabetes 9. Osteoarthritis 10.DJD spine 11.Sleep apnea on CPAP DISCHARGE INSTRUCTIONS: Discharge the patient home. Keep appointment with patient transportation driver as scheduled. Followup at the [facility]. Electron Gun Inspector consult. MEDICATIONS AT DISCHARGE: Pentoxifylline Coreg Dicyclomine ProAir Diphenhydramine Hydrocodone Remeron Minipress Cilostazol Triglide Metformin Requip Tresiba Xarelto Magnesium Citrate Lisinopril Pantoprazole Carafate Simvastatin Potassium Lasix Gabapentin Tylenol NEW PRESCRIPTIONS: Jardiance 25mg PO daily DIET INSTRUCTIONS: Constent Carbs ACTIVITY: As much as tolerated. DISEASE SPECIFIC EDUCATION: Diabetes Dehydration Risk of DKA been discussed Gastroenteritis HOSPITAL COURSE: Francie Sanchez 57 year old female came to the emergency room with the nausea and vomiting and not able to keep anything down. She was seen by Dr. Murillo. WBC was normal. Showed the Potassium 2.8. CT of abdomen and pelvis done which showed cardiovascular disease, hepatic stenosis, probable calcified uterine fibroids and no acute intra-abdominal pathology. Potassium been replaced and started on the Zofran nausea medication and Protonix. Gradually she started feeling better. Potassium went up to 3.1 then 3.7. Magnesium 1.7. The patient was started on the Jardiance which presumed to be helping her with the weight loss too. The patient started gradually getting up and about walked a little bit in the hospital but still complaining of a lot of weakness. As the patient was feeling better and was able to keep the food down and no diarrhea. She is discharged back home. Gradual exercise been discussed. Will followup with the [facility]. TIME SPENT: MORE THAN 65 MINUTES MTDD
== END 2017-10-01 10:52 | disposition home or self-care (01) | DRG 391 ==
LOC: ED 08:37 → MEDSURG B 12:42
PROVIDERS: ADMIT Emergency Medicine; ATTEND Emergency Medicine
DX: K52.9 Noninfective gastroenteritis and colitis, unspecified (principal); K83.1 Obstruction of bile duct; Z68.42 Body mass index [BMI] 45.0-49.9, adult; K29.70 Gastritis, unspecified, without bleeding; E87.6 Hypokalemia; F41.8 Other specified anxiety disorders; E66.01 Morbid (severe) obesity due to excess calories; M47.9 Spondylosis, unspecified; G47.30 Sleep apnea, unspecified; I73.9 Peripheral vascular disease, unspecified; E11.8 Type 2 diabetes mellitus with unspecified complications; R11.2 Nausea with vomiting, unspecified; E86.0 Dehydration; E78.5 Hyperlipidemia, unspecified; I10 Essential (primary) hypertension; R10.13 Epigastric pain; R19.7 Diarrhea, unspecified; R06.02 Shortness of breath; I70.90 Unspecified atherosclerosis; Z79.4 Long term (current) use of insulin
CPT/HCPCS: 36415; 80053; 81001; 82550; 82962; 83735; 84132; 84484; 85025; 87086; 87493; 93005; 93010; 96365; 97802; 99285

== ENCOUNTER 2017-10-06 10:00 | Outpatient (RCR) | END 2017-10-11 23:59 | LOC: NEWBEG 10:00 | PROVIDERS: ATTEND Psychiatry & Neurology Psychiatry | DX: F33.1 Major depressive disorder, recurrent, moderate (principal); F41.9 Anxiety disorder, unspecified; F43.10 Post-traumatic stress disorder, unspecified; F60.9 Personality disorder, unspecified | CPT/HCPCS: 90853; 99213 ==

== ENCOUNTER 2017-10-09 10:35 | Outpatient (CLI) | END 2017-10-09 10:36 | disposition home or self-care (01) | LOC: RHC-LAB 10:35 | PROVIDERS: ATTEND Emergency Medicine | DX: E11.9 Type 2 diabetes mellitus without complications (principal); Z85.038 Personal history of other malignant neoplasm of large intestine | CPT/HCPCS: 36415; 80061; 82378; 83036; 84436; 84443; 84479 ==

== ENCOUNTER 2017-10-16 12:43 | Outpatient (CLI) ==
--- NOTE | 2017-10-17 09:59 | MAMMO ---
EXAM: Bilateral digital screening mammogram (2-D and 3-D) History: Screening Comparison: Bilateral mammogram 08/08/2016 Findings: MLO and CC views of bilateral breasts demonstrate predominately fatty replaced breast pare nchyma. CAD was viewed by the radiologist. Tomosynthesis was performed. Stable benign bilateral br east lymph nodes. There are no dominant masses, no suspicious microcalcifications and no architectur al distortions Impression: Benign stable mammogram. Recommend followup routine screening mammography in 1 year. BIRADS 2
== END 2017-10-16 12:44 | disposition home or self-care (01) ==
LOC: RAD 12:43
PROVIDERS: ATTEND Emergency Medicine
DX: Z12.31 Encounter for screening mammogram for malignant neoplasm of breast (principal)
CPT/HCPCS: 77067

== ENCOUNTER 2017-11-10 10:00 | Outpatient (RCR) | END 2017-11-11 23:59 | LOC: NEWBEG 10:00 | PROVIDERS: ATTEND Psychiatry & Neurology Psychiatry | DX: F33.1 Major depressive disorder, recurrent, moderate (principal); F41.9 Anxiety disorder, unspecified; F43.10 Post-traumatic stress disorder, unspecified; F60.9 Personality disorder, unspecified | CPT/HCPCS: 90853; 99213 ==

== ENCOUNTER 2017-12-12 10:00 | Outpatient (RCR) | END 2017-12-12 23:59 | LOC: NEWBEG 10:00 | PROVIDERS: ATTEND Psychiatry & Neurology Psychiatry | DX: F33.1 Major depressive disorder, recurrent, moderate (principal); F41.9 Anxiety disorder, unspecified; F43.10 Post-traumatic stress disorder, unspecified; F60.9 Personality disorder, unspecified | CPT/HCPCS: 90853; 99213 ==

== ENCOUNTER 2018-01-09 10:00 | Outpatient (RCR) | payer OTHER | END 2018-01-11 23:59 | LOC: NEWBEG 10:00 | PROVIDERS: ATTEND Psychiatry & Neurology Psychiatry | DX: F33.1 Major depressive disorder, recurrent, moderate (principal); F41.9 Anxiety disorder, unspecified; F43.10 Post-traumatic stress disorder, unspecified; F60.9 Personality disorder, unspecified | CPT/HCPCS: 90853; 99213 ==

== ENCOUNTER 2018-01-29 08:41 | Outpatient (CLI) ==
[2018-01-29 14:57] VITALS: BMI 44.2
== END 2018-01-29 08:42 | disposition home or self-care (01) ==
LOC: LAB 08:41
PROVIDERS: ATTEND Nurse Practitioner Family
DX: E87.6 Hypokalemia (principal); E78.2 Mixed hyperlipidemia; E11.9 Type 2 diabetes mellitus without complications; I73.9 Peripheral vascular disease, unspecified; D50.8 Other iron deficiency anemias
CPT/HCPCS: 36415; 80053; 80061; 83036; 83735; 85025

== ENCOUNTER 2018-01-29 14:08 | Inpatient (IN) | payer OTHER ==
[2018-01-29 14:57] VITALS: BMI 44.2
[2018-01-29] MEDS ORDERED: K-DUR PO ONE (17:30)
--- NOTE | 2018-01-29 17:35 | PCM ---
- Chief Complaint Chief Complaint: Hypokalemia, Hypomagnesemia, Leg cramps Diabetes 2 A1C controlled <6.0, chronic diarrhea, chronic PAD. - History of Present Illness History of Present Illness: 57 yo WF presented to hospital via direct admit for critical severe hypokalemia. She had labs ordered By INNA jennings who discussed with me and patient was feeling poorly. She was admitted to hospital due to hypokalemia of 2.37 and hypomagnesemia 1.53. She was not feeling poorly up until today. She has her BP checked in clinic on friday and friday. Last BP 01/06/18 was 134/82 , 12/02/17 was 118/78, 11/06/17 112/76. BP is stable. She notes she was told that her BP was a little lower than normal today but this information is not available to me. Chronic vascular issues with Bilateral Legs. Wound on her right knee is open and vascular is aware. She was given bactroban by INNA jennings. I have requested a barrier cream and bandage to be placed to the wound and for her to f/u with wound care. As noted patient has a K+ of 2.37, Cl 102, cr normal at 0.94, magnesium 1.53. Historical iron deficiency with iron 29, tranferrin 319, ferritin 13.60 and iron binding 344. Recommended f/u and w/u as outpatient. Her lipid panel was done recently 01/29/18 with trigly 305.4, hdl 32.8, ldl 36 and at goal. I would recommend repeat in 8-12 weeks and if LDL remains <40 to back down on statin. Recent TSH 10/09/17 was within normal limits of 0.729. B12 was low normal 02/19/17. Would recommend f/u with this as outpatient. CBC normal, wbc 5.99, hgb 12.9, plt 314. She is unknown to me but known previously by my partner Dr. Cam. The patient has had diarrhea x 6 months, she is having diarrhea 3-4x daily worse with meals. She has seen Dr. Puente who did colonoscopy (04/2017 per patient) and found a few polyps. She talked to them about chronic diarrhea. She has been instructed to take imodium with food and this causes constipation so she did not take this. Reviewed note from Sharon Bloom APRN 10/08/17. They ordered CT abd/pelvis at that time. Was negative for c diff. Reviewed note from Michel 11/19/17 diarrhea, history of colon cancer, abd cramping. They held xarelto trental and pletal. Colonoscopy large intestine biopsy benign colonic mucosa, large intestine ascending benign, large intestine descending polyp adenomatous, large intestine biopsy colon benign. Note from GI 12/25/17 reviewed ?history of bowel resection, Endoscopy , fempop, neck surgery, T&A. Former smoker, quit 25 yr ago, never smokeless use. Family history of lung cancer, neg fam hx colon cancer. PCN allergy, weight stable. She has intermittent cramping in abdomen and legs. Prominent scarring bilateral legs secondary to vascular surgeries and PAD. She has history of DM. The patient takes this rx at lunch once daily 10 units. She has been using this regularly. I reviewed her records and she had an A1C today of 5.11. I will stop her tresiba at this time. We will stop this at d/c as well. Goal for her is <8.0 and she is overtreated at this point. Would like to repeat A1C in 3 months and if remains <6.5 stop tradjenta. I feel that the jardiance is reasonable for cardiac health and would be last to be d/c. Major issue here is Hypokalemia, severe, hypomagnesium moderate. She has normal EKG. NSR, mixed bundle/bifasicular block with RsR' in V1, v2, v3, v4, T inversion in V1-V6 and possibly ST depression in II and V6. I compared this to the EKG from 10/01/17 and it is essentially unchanged. Current QTC borderline of 465. She has QRS 146, was 122 10/01/17. ID [id number] now 170 previously. Rate is fine. As noted no chest pain, no heart rhythm changes, no murmur on exam. Semi chronic diarrhea, following with GI, normal uout, normal cr, normal renal function at this time. She ate dinner, she wanted ice chips (iron def?) and had no other issues. Diarrhea is not bloody,not more foul smelling. - Review of Systems Constitutional: weakness, fatigue, loss of appetite. No: fever, chills, sweats , other Eyes: No: blurred vision, double-vision, discharge, itching, pain, redness, photophobia, other Ears: No: pain, bleeding, drainage, ringing, hearing loss, other Nose: No: bleeding, congestion, discharge, other Throat: No: pain, swelling, voice change, other Mouth: No: bleeding, pain, swelling, other Respiratory: cough. No: shortness of air, wheeze, hemoptysis, pain with breathing, other Cardiovascular: No: chest pain, left arm pain, diaphoresis, PND, orthopnea, edema, palpitations, syncope, other Gastrointestinal: abdominal pain, nausea, diarrhea. No: vomiting, melena, hematemesis, hematochezia, dysphagia, constipation Genitourinary: No: dysuria, hematuria, frequency, incontinence, flank pain, vaginal discharge, abnormal bleeding, pelvic pain, other Neurological: weakness. No: headache, dizziness, seizure, numbness, speech difficulty, problems with walking, tremor, fainting, other Musculoskeletal: pain, swelling in joints. No: other Skin: No: rash, pruritus, lacerations, wounds, bruising, other Immunology: No: hives, itching, frequent infections, difficulty healing, other Hematology: No: easy bruising, easy bleeding, swollen glands, other Endocrine: No: weight changes, cold intolerance, heat intolerance, excessive thirst, excessive hunger, polyuria, other Psychiatric: depression, anxiety. No: sleeplessness, hopelessness, suicidal, hallucinations, other Habits: No: tobacco use, substance use, alcohol use, other - Past Medical History Past Medical History: Anxiety. Asthma. CVA (cerebral vascular accident). Colon cancer. Depression. Diabetes mellitus. Hyperlipidemia. Other specified events, undetermined intent, initial encounter (restless legs). Reflux gastritis. Vascular disease - Past Surgical History Past Surgical History: Adenoidectomy. Cholecystectomy. Dental EXtraction. Tonsillectomy. Vascular (s/p fem pop, [place]). Other (cervical) - Allergies Allergies/Adverse Reactions: Allergies Allergy/AdvReac Type Severity Reaction Status Date / Time Penicillins Allergy Severe throat Verified 05/10/17 13:35 swells - Medications Medications: Active Medications Generic Name Dose Route Start Last Admin Trade Name Freq PRN Reason Stop Dose Admin Hydrocodone Bitart/Acetaminophen 1 tab 01/29/18 21:00 [place] 10-325 PO BID [facility] Carvedilol 6.25 mg 01/29/18 21:00 Coreg PO BID [facility] Cilostazol 100 mg 01/29/18 21:00 Pletal PO BID [facility] Dicyclomine HCl 10 mg 01/29/18 21:00 Bentyl PO TID [facility] Diphenhydramine HCl 50 mg 01/29/18 17:47 Benadryl PO Q6HR PRN Allergy Symptoms Fenofibrate 160 mg 01/30/18 09:00 Triglide PO DAILY [facility] Furosemide 20 mg 01/30/18 09:00 Lasix Tab PO DAILY [facility] Potassium Chloride/Sodium Chloride 1,000 mls @ 100 mls/hr 01/29/18 18:00 18:19 Sodium Chloride 0.9%-Kcl 20 Meq IV 100 mls/hr .Q10H [facility] Administration Insulin Glargine 10 unit 01/29/18 21:00 Lantus SUBCUT BEDTIME [facility] Linagliptin 5 mg 01/30/18 09:00 Tradjenta PO DAILY [facility] Lisinopril 5 mg 01/30/18 09:00 Zestril PO DAILY [facility] Magnesium Oxide 800 mg 01/29/18 21:00 Mag-Ox PO BID [facility] Non-Formulary Medication 325 mg 01/30/18 09:00 Ferrous Sulfate [Iron] PO DAILY [facility] Non-Formulary Medication 600 mg 01/29/18 21:00 Gabapentin [Gabapentin] PO TID [facility] Non-Formulary Medication 15 gm 01/29/18 21:00 Mupirocin Calcium [Bactroban] TP TID [facility] Non-Formulary Medication 20 mg 01/30/18 09:00 Rivaroxaban [Xarelto] PO DAILY [facility] Non-Formulary Medication 0.5 mg 01/29/18 21:00 Ropinirole Hcl [Requip] PO BEDTIME [facility] Non-Formulary Medication 20 mg 01/29/18 21:00 Simvastatin [Simvastatin] PO BEDTIME [facility] Pantoprazole Sodium 40 mg 01/30/18 06:30 Protonix PO QDAC [facility] Prazosin HCl 2 mg 01/29/18 21:00 Minipress PO BEDTIME [facility] Promethazine HCl 25 mg 01/29/18 18:00 Phenergan Tab PO every 6 hrs PRN [facility] Sucralfate 1 gm 01/30/18 06:30 Carafate PO AC [facility] - Family History Past Family History: Cardiac disease. 32 MOTHER (CHF). Chronic obstructive pulmonary disease. 32 MOTHER. Diabetes mellitus. 32 MOTHER. Leukemia - Social History Past Social History: obacco Use. Smoking status Former smoker (quit 1992). Alcohol Use. Alcohol intake None. Substance Use. Substance abuse Denies use. Hailey/Druze. Gnosticism preference Hindu. Special hailey needs No - Vital Signs Temperature: 98.5 F Pulse Rate: 75 Respiratory Rate: 20 O2 Sat by Pulse Oximetry: 95 - Body Composition Height: 5 ft 6 in Weight: 281 lb 6 oz Body Mass Index (BMI): 44.2 - Physical Examination HEENT: Constitutional: Appearance-No acute distress, Older than stated age. Orientation- Oriented x 3, alert Build and Nutrition-[Morbidly obese female] General- Patient is pleasant and cooperative with the interview and exam. Integumentary: General-Right leg prominent scar from femoral to popliteal, skin breakdown anterior medial knee 4 cm wide. Pick steen bilateral LE, scaring bilateral LE. Vascular abnl, e/o poor circulation. Pedal hair reduced. Cavus foot type. Palpation- LE dry. Overall Skin is warm to touch, appropriate. Capillary refill is normal bilateral Upper and lower extremity. Numerous hypopigmented macules bilateral UE along forearm dorsal aspect. Head/Neck: Head- normocephalic and atraumatic. Neck- without visible/palpable lumps or pulsations. Palpation- No bony tenderness about head/neck along frontal, occipital, temporal, parietal, mastoid, jawline, zygoma, orbit or any other location. NO temporal artery tenderness. No TMJ tenderness. Neck Supple. Thyroid-No thyromegaly, no nodules Eye: Bilaterally PERRLA, EOMI. No discharge. Upper and lower eyelids are normal. Sclera/conjunctiva normal without discharge. Cornea is normal and clear. Lens is normal. Eyeball appears normal. No ciliary flushing, no conjunctival injection. ENMT: Pinna- normal without tenderness or erythema. External auditory canal Left- normal without erythema or discharge, no excessive cerumen. External auditory canal Right-normal without erythema or discharge, no excessive cerumen. TM left- [place]/pearly, normal light reflex and anatomy TM Right- [place]/ pearly, normal light reflex and anatomy Hearing Assessment-normal to conversational speech. Nose and sinus- No sinus tenderness along frontal/ maxillary region. External appearance normal and midline. Nares- bilateral quiet airflow, no discharge. Nasal mucosa- No bleeding noted and no ulcerations observed. [place], moist. Turbinates non boggy. Lips- normal color, moist without cracks/lesions Oral Cavity/Palate- hard/soft palate intact without lesions, oral mucosa pink and moist. Dentition assessed edentulous. Tongue normal midline. Oropharynx- no pharyngeal erythema, Uvula midline. No post nasal drip. No exudate. Salivary glands- Non tender to palpation CHEST/LUNG: Inspection- symmetric chest wall no pectus deformity. Normal effort , no distress, no use of accessory muscles. Palpation- nontender sternum, ribline. No abnormal pulsations. Auscultation- Breath sounds normal throughout all lung mcnamara. Normal tracheal sounds, Normal bronchial sounds overlying sternum, Bronchovessicular sounds normal between scapulae posteriorly, Normal vessicular breath sounds heard throughout periphery. Lungs are clear today. Adventitious sounds- No wheezes, rales, rhonchi. CARDIOVASCULAR: Carotid artery- normal, no bruits or abnormal pulsations. Jugular vein- no pulsations. Palpation/Percussion- Normal PMI, no palpable thrill Auscultation- Regular rate and rhythm. No murmur noted in sitting, supine positions. Extremities- no digital clubbing, cyanosis, edema, increased warmth. ABDOMEN: Inspection- normal and no visible pulsations. Normal contour. Auscultation- Bowel sounds normal, no abdominal bruits. Palpation/Percussion- soft, non-tender, no rebound tenderness, no rigidity (guarding), no jar tenderness, no masses. Liver-no hepatomegaly, Spleen no splenomegaly, Hernias - none. Rectal not examined. Peripheral Vascular: Upper extremity Left- Normal temperature with pink nailbeds and no ulcerations. She has Upper extremity Right- Normal temperature with pink nailbeds and no ulcerations. Lower extremity- Normal temperature with pink nailbeds and no ulcerations. DP pulses 2+ bilaterally. Pedal hair intact. Normal capillary refill. Edema- No edema. Musculoskeletal: Generalized-No generalized swelling or edema of extremities, no digital clubbing or cyanosis, neurovascularly intact all four extremities. Upper extremity- Symmetrical posture. No visible deformity. Normal sensation along medial and lateral upper extremity proximally and distally. NO tenderness overlying shoulder, lateral/medial epicondyle. Lapping Machine Set Up Operator 5/5 and strength 5/5 bilateral UE. Elbow palpated, no tenderness overlying olecranon. Normal supination, pronation to active/passive ROM and to resisted rotation. Bicep insertion/tricep insertion appear normal without obvious pathology. Rotator cuff evaluated and intact. Normal wrist ROM bilaterally. Normal hand movement, intrinsic muscles of hands normal. No tenderness to palpation of hands/wrists/ elbows. Lapping Machine Set Up Operator 5/5 bilaterally. IV left ventral foreaarm/ Lower extremity- Hip: Not tender to palpation, Reduced hip ROM bilaterally without pain. Knee: Knee ROM normal. reduced. Prominent scarring. She has pain along knee. No tenderness overlying trochanters, no tenderness about patella, quad tendon, patellar tendon. No tenderness at tibial tuberosity. Spine/Ribs- No deformities, masses. Tenderness C/T/L paraspinal. Difficult to raise legs. Neurological: General- Moves all 4 extremities symmetrically. Symmetrical face and body posture. Cranial nerves- individually evaluated II-XII and intact. PERRLA, Normal EOMI, visual/special senses appear intact, Face is symmetrical and normal sensation/movement, normal tongue, normal strength/posture of neck musculature. Reflexes- intact with DTR 2+ patellar, Achilles, bicep, brachial, tricep. Ankle clonus normal with 2 beats. Strength- 5/5 bilateral UE and LE. Soft touch- intact bilateral UE and LE. Temperature sensation- intact bilateral UE and LE. Neuropsych: Oriented- Person, place, time. (AAOx3), Mood/affect- normal and congruent. Able to articulate well. Speech-Normal speech, normal rate, normal tone, normal use of language, volume and coherence. Thought content- normal with ability to perform basic computations and apply abstract thought/reason. Associations- intact, no SI/HI, no hallucinations, delusions, obsessions. Judgment/insight- Appropriate. Memory-Recall intact, remote and recent memory intact. Knowledge- Age appropriate fund of knowledge, concentration and attention span normal. Lymphatic: Head/Neck- normal size and non tender to palpation. Axillary- normal size and non tender to palpation. Femoral and Inguinal- normal size and non tender to palpation. - Lab/Tests/Diagnostic Imaging Lab/Tests/Diagnostic Imaging: Labs: CMP: Sodium 139.2, K+ 2.37, Cl 102, C02 34.9, BUN 6.9, Cr 0.94, glucose 96.5, a1c 5.11, magnesium 1.53, Bili 0.20, AST 17.7, ALT 13.6 Cholesterol: Total 130, LDL 36, HDL 61. CBC: WBC 5.99, Hgb 12.9, plt 314. CT Abd/Pelvis: 09/28/17. Fatty liver, aneursym of femoral artery. Probable calcified uterine fibroid. EKG: NSR, Bifascicular block, chronic unchanged. - Assessment (1) Hypokalemia, gastrointestinal losses Status: Acute Code(s): E87.6 - HYPOKALEMIA SNOMED Code(s): 19523655 (2) Hypomagnesemia Status: Acute Code(s): E83.42 - HYPOMAGNESEMIA SNOMED Code(s): 997510313 (3) BMI 45.0-49.9, adult Status: Acute Code(s): Z68.42 - BODY MASS INDEX (BMI) 45.0-49.9, ADULT SNOMED Code(s): 405790018, 046279742 (4) Diabetes mellitus with hemoglobin A1c goal of 7.0%-8.0% Status: Acute Code(s): E11.9 - TYPE 2 DIABETES MELLITUS WITHOUT COMPLICATIONS SNOMED Code(s): 815155740, 729986160 (5) Chronic anticoagulation Status: Acute Code(s): Z79.01 - [facility] (CURRENT) USE OF ANTICOAGULANTS SNOMED Code(s): 144489034 (6) Diarrhea Status: Acute Code(s): R19.7 - DIARRHEA, UNSPECIFIED SNOMED Code(s): 11271147 (7) Leg cramps Status: Acute Code(s): R25.2 - CRAMP AND SPASM SNOMED Code(s): 097652385 - Plan Plan: Hypomagnesemia/Hypokalemia: Life threatening hypokalemia with need to monitor via telemetry and to serially check K+ and magnesium. WE will replace via oral and IV mechanisms. Patient presented to new Provider INNA Jennings on 01/06/18 and labs ordered. She had these done today and noted that K+ was 2.37 and mg was low at 1.53. I reviewed her last potassiums and she was 2.8 09/28/17 was 3.3 01/20/17 and 3.3 10/28/16 else hovers around 3. Risks of arrhythmia are present. She is on telemetry and monitored closely. At home she is on K+Cl- 10meq which is not adequate and it will be increased to 20meq daily minimum at d /c. She is not on any mag, discussed with SENIOR BIOINFORMATICS SCIENTIST that K+ will not replete well if mg++ is low. I will replace her magnesium with mag oxide in hospital 800mg BID. I will give her 40meq of K+cl- with dinner which should increase her close to the 2.5-3.0 zone and we will continue NS 100ml/hour with K+CL- 20meq. Repeat K+ and mg++ and phos at 0000 tonight. Repeat CMP in am. We will repeat 40meq PO in am. Goal will be d/c home tomorrow vs Friday am depending if this improves. We discussed our version of IV mag and it is in D5W. However, if she is diabetic, hypokalemic and getting d5w and insulin, this will only make K+ worse. I opted for oral. Suspect GI losses as most likely however Type I RTA is possible as well. I will check UA to evaluate pH of urine. She has a borderline acidemia. Incomplete RTA is possible. May refer to Nephrology , may consider ABG. HOwever, if this corrects with simple replacement, the above next steps are not necessary as this can be best explained by GI losses. - Admit inpatient with tele due to severe K+ deficiency potential life threatening electrolyte abnl. - Replace K+ as listed above - Replace Mg++ as listed above - NS 100/hour w/ K+ - K+ and Mg++ at 2000 - CMP in am - Mg in am - Will monitor CBC as well. - Hold bentyl due to interaction with K+Cl- Diabetes A1C goal 7-8%: She is currently overtreated. I am going to stop metformin (GI losses), I will also stop the tresiba. We will continue jardiance and trajenta for now. Repeat A1C in 3 months. If <6.5 at that time would recommend stopping trajenta and continue the jardiance. - Stop metformin - Stop lantus (ordered for bedtime I will cancel this). Diarrhea/Abdominal Pain: Stop metformin. Reviewed GI notes. At this time, we will check Cdiff. I ordered stool PCR and we will likely d/c home with f/u with GI as outpatient. Vasculopathy: Needs to f/u with vascular. Leg cramps: Replace K+ and Mg++. RE-evaluate in am. Requip to continue. Wound right knee: Does not appear to be infected. We will monitor, use bandage and barrier. - Wound culture. DVT Prophy: Continue Xarelto. Activity: Up with Assist. Diet: ADA 1800 kcal. Disposition: Home in 1-2 days if K+ and Mg+ improves. Reviewed last OV from new provider, GI provider, reviewed EKG, reviewed last labs. CT abd/pelvis 2017 showed 2.8 cm aneursym right femoral. She has fatty liver as well. Today we spent 70 minutes in admission. We will replace her K+, we will replace her Mg++ and we will see how she does in 12-24 hours. Close monitoring recommended. This meets admission criteria due to the severe nature of the hypokalemia.
[2018-01-29] MEDS ORDERED: BENADRYL PO PRN (17:47)
[2018-01-29] MEDS ORDERED: PHENERGAN TAB PO PRN (18:00)
[2018-01-29] MEDS: SODIUM CHLORIDE 0.9%-KCL 20 MEQ 1,000 ML IV SCH (18:19)
[2018-01-29] MEDS ORDERED: K-DUR PO STA ×2 (18:36→22:49)
[2018-01-29] MEDS ORDERED: K-DUR ONE (18:39)
[2018-01-29] MEDS ORDERED: NEURONTIN ONE (20:23)
[2018-01-29] MEDS ORDERED: ZOCOR ONE (20:24)
[2018-01-29] MEDS ORDERED: BACTROBAN TP ONE (20:24)
[2018-01-29] MEDS ORDERED: REQUIP ONE (20:25)
[2018-01-29] MEDS: MINIPRESS PO SCH (20:36)
[2018-01-29] MEDS: PLETAL PO SCH (20:36)
[2018-01-29] MEDS: MAG-OX PO SCH (20:36)
[2018-01-29] MEDS: NORCO 10-325 PO SCH (20:37)
[2018-01-29] MEDS ORDERED: POTASSIUM CHLORIDE PREMIX RUN 20 MEQ in PREMIX 100 ML WATER 2 BAG IV STA ×2 (20:58→21:00)
[2018-01-29] MEDS ORDERED: NON-FORMULARY MEDICATION (Gabapentin [Gabapentin] 600 MG) PO SCH (21:00)
[2018-01-29] MEDS ORDERED: MUPIROCIN CALCIUM 15 GM TP SCH (21:00)
[2018-01-29] MEDS ORDERED: COREG PO SCH (21:00)
[2018-01-29] MEDS ORDERED: NON-FORMULARY MEDICATION (Ropinirole Hcl [Requip] 0.5 MG) PO SCH (21:00)
[2018-01-29] MEDS ORDERED: NON-FORMULARY MEDICATION (Simvastatin [Simvastatin] 20 MG) PO SCH (21:00)
[2018-01-29] MEDS ORDERED: LANTUS SUBCUT SCH (21:00)
[2018-01-29] MEDS ORDERED: BENTYL PO SCH (21:00)
[2018-01-29] MEDS ORDERED: POTASSIUM CHLORIDE IV ONE (21:06)
[2018-01-30] MEDS: CARAFATE PO SCH ×3 (05:32→16:16)
[2018-01-30] MEDS: PROTONIX PO SCH (05:32)
--- NOTE | 2018-01-30 06:51 | PCM.PROG ---
Subjective: 57 yo WF room 120 with critical, severe hypokalemia, hypomagnesemia w/ suspected GI losses rounding day 1. She was given 40meq PO with meal yesterday , started NS 100 ml/hr +20 meq K+cl-. Mg was low at admit, mag oxide 800 BID ordered. At 2049 last night K+ dropped to 2.14, I was contacted and recommended IV site #2 to be obtained and to check on IV K+ runs x2 consider lidocaine. Pharmacy consulted, did not feel it was recommended, suggested to run them in NS. Patient could not tolerate the runs, IV site #2 was not successful. Pharmacy consulted and said to link them in NS with the IV fluids. Patient has no CHF history. Prominent obesity, vascular issues bilateral LE. Open wound below knee culture pending. Numerous excoriations bilateral LE and along superior anterior chest. At 22:40 K+ was 2.15, 40more K+ orally recommended by me w/ 12 oz water and give a snack. At 0250 K+ had increased to 2.45 . With am CMP this morning K+ was same. Magnesium has improved to 1.63. Phosphorus was normal. At 0543 she couldnot tolerate the 100ml/hour IV due to pain and it was dropped to 60ml/hour. Reviewed tele and she has remained NS with BBB. I will make sure she has OJ or an orange with breakfast, banana with breakfast and yogurt, each should give ~10% RDI of K+. In addition to the 40meq w/ each meal, I should be able to get her to 2.75-3.0 today. Asymptomatic. I went into room 7 am today and she is on CPAP. They have had issues with blood draw, issues with starting IV 2. I discussed with her if we cannot get this IV that we would need to give her more oral replacement. I discussed with breakfast OJ, banana and yogurt. "I do not like yogurt," I discussed that this may be true but think of it as medicine as it gives you 10- 11% of your RDI. I talked with nurse, patient has not voided through night. NO BM through night. We have not yet tested Cdiff as she has not had a BM. She noted 5+ times per day BM prior to admit. Cdiff negative previously. She has no c/o abdominal pain this am. She has no c/o other than pain with attempts at vascular access. I asked her this am if she needed to urinate she said yes but she holds it through the night and does not urinate overnight. I asked about BM , she noted she took one of her imodium and usually doesnot go overnight either but passing flatus and feeling she needs to go now. I discussed with her candidly that if I cannot get IV access, if I cannot give IV K+, that we need to focus on oral replacement as severe hypokal can be fatal. She understood this. I talked with dietary, because A1C <5.5 I will change her to regular diet. We will add potato as well, high in K+. She will have potato with lunch. I will try to work tomato sauce into this somehow as well. Other foods higher in K+ apricot, peas, cucumber, prune (will avoid due to reported diarrhea), consider V8 during lunch. Whole wheat bread breakfast. v8 for lunch. Already on schedule today are mixed veggies, with zucchini also high in K+. We should be able to do this orally. Normally patients need 4700mg of K + daily. Based on literature the 40meq should have raised her by 0.4. She has had 80 po yesterday and she has had IV fluids as well and should have had another 0.2 over 10 hours. She had actually dropped and then increased again to 2.45. She is on tele and stable at this point. I will try 40meq with breakfast/lunch/dinner and will add foods higher in K+. I will watch closely and back down if needed. Goal is 3.0 for now. REVIEW OF SYMPTOMS: (Positives bolded) General: weight loss, fever, chills, night sweats, fatigue, appetite loss (no changes in weight) USing CPAP this am. HEENT: blurry vision, eye pain, eye discharge, dry eyes, decreased vision, sore throat tinnitus, bloody nose, hearing loss, sinus pain/pressure, ear pain/ pressure. Respiratory: shortness of breath, cough, hemoptysis, wheezing, pleurisy, Cardiovascular: chest pain, PND, palpitation, edema, orthopnea, syncope, swelling of extremities Gastro: Nausea, vomiting, diarrhea (REPORTED NONE IN HOSPITAL), hematemesis, abdominal pain (None now 5/10 last night), constipation, +Flatus Genito: hematuria, dysuria, glycosuria, hesitancy, frequency, incontinence (NO URINE OUTPUT OVERNIGHT, "I HELD IT") Musckelo: Arthralgia, myalgia, muscle weakness (BILATERAL LE), joint swelling ( Bilateral LE knees/ankles), Not worse Skin: rash, pruritis, sores, nail changes, skin thickening, change in wart/mole , new lesions, Neuro: Migraine, numbness, ataxia, tremor, vertigo, weakness, memory loss, Irritability, dizziness Endocrine: excessive thirst, polyuria, cold intolerance, heat intolerance, goiter Psychiatric: depression, anxiety, anti-depressants, alcohol abuse, drug abuse, insomnia, change in sleep pattern and mood changes Heme/lymph: easy bruising, bleeding gums, blood clots, swollen glands, lymphedema, Allergic/immune: allergic rhinitis, hay fever, asthma, hives Objective: Vital Signs - 24 hr 01/29/18 01/29/18 01/29/18 14:28 18:00 19:15 Temperature 98.5 F 98.5 F Pulse Rate 75 69 Pulse Rate [ 68 Apical] Respiratory 20 18 18 Rate Blood Pressure 105/65 O2 Sat by Pulse 95 95 Oximetry 01/29/18 01/29/18 01/30/18 20:00 22:00 02:00 Temperature 98.5 F 98.0 F 97.2 F L Pulse Rate 75 69 64 Pulse Rate [ Apical] Respiratory 20 18 Rate Blood Pressure 136/80 111/65 O2 Sat by Pulse 95 93 L 97 Oximetry 01/30/18 05:17 Temperature 98.0 F Pulse Rate 67 Pulse Rate [ Apical] Respiratory 18 Rate Blood Pressure 120/74 O2 Sat by Pulse 98 Oximetry HEENT: Constitutional: Appearance-No acute distress, Using CPAP, Older than stated age. Orientation- Oriented x 3, alert Build and Nutrition-[Morbidly obese female ] General- Patient is irritable this am, grumpy and not happy. She was cooperative with the interview and exam. Integumentary: General-Right leg prominent scar from femoral to popliteal, skin breakdown anterior medial knee 4 cm wide. Pick steen bilateral LE, scaring bilateral LE. Vascular abnl, e/o poor circulation. Pedal hair reduced. Cavus foot type. Palpation- LE dry. Overall Skin is warm to touch, appropriate. Capillary refill is normal bilateral Upper and mildly reduced bilateral lower extremity. Numerous hypopigmented macules bilateral UE along forearm dorsal aspect. Head/Neck: Head- normocephalic and atraumatic. Neck- without visible/palpable lumps or pulsations. Palpation- No bony tenderness about head/neck along frontal, occipital, temporal, parietal, mastoid, jawline, zygoma, orbit or any other location. NO temporal artery tenderness. No TMJ tenderness. Neck Supple. Thyroid-No thyromegaly, no nodules Eye: Bilaterally PERRLA, EOMI. No discharge. Upper and lower eyelids are normal. Sclera/conjunctiva normal without discharge. Cornea is normal and clear. Lens is normal. Eyeball appears normal. No ciliary flushing, no conjunctival injection. ENMT: Nose and sinus- No sinus tenderness along frontal/maxillary region. External appearance normal and midline. Nares- bilateral quiet airflow, no discharge. Nasal mucosa- No bleeding noted and no ulcerations observed. [place], moist. Turbinates non boggy. Lips- normal color, moist without cracks/lesions Oral Cavity/Palate- hard/soft palate intact without lesions, oral mucosa pink and moist. Edentulous. Tongue/uvula normal midline. Oropharynx- no pharyngeal erythema, Uvula midline. No post nasal drip. No exudate. Salivary glands- Non tender to palpation CHEST/LUNG: Inspection- symmetric chest wall no pectus deformity. Normal effort , no distress, no use of accessory muscles. Palpation- nontender sternum, ribline. No abnormal pulsations. Auscultation- Breath sounds normal throughout all lung mcnamara. Normal tracheal sounds, Normal bronchial sounds overlying sternum, Bronchovessicular sounds normal between scapulae posteriorly, Normal vessicular breath sounds heard throughout periphery. Lungs are clear today. Adventitious sounds- No wheezes, rales, rhonchi. CARDIOVASCULAR: Palpation/Percussion- Normal PMI, no palpable thrill Auscultation- Regular rate and rhythm. No murmur noted in sitting, supine positions. Extremities- no digital clubbing, cyanosis. She has chronic edema bilateral LE. ABDOMEN: Inspection- normal and no visible pulsations. Normal contour. Auscultation- Bowel sounds normal, no abdominal bruits. Palpation/Percussion- soft, non-tender, no rebound tenderness, no rigidity (guarding), no jar tenderness, no masses. Peripheral Vascular: Upper extremity Left- Normal temperature with pink nailbeds and no ulcerations. Upper extremity Right- Normal temperature with pink nailbeds and no ulcerations. Lower extremity- pink nailbeds Ulceration just below right knee medially. Prominent scarring. DP pulses palpable/ thready. Pedal hair reduced. Edema is present 1+ today to mid sheridan. Numerous lesions bilateral LE, excoriations. Musculoskeletal: Generalized-No generalized swelling or edema of extremities, no digital clubbing or cyanosis, neurovascularly intact all four extremities. Upper extremity- Clerical Grader 5/5 bilaterally. IV left ventral forearm. Attempted right arm, unsuccessfully. Lower extremity- Hip: Not tender to palpation, Reduced hip ROM bilaterally without pain. Knee: Knee ROM normal. reduced. Prominent scarring. She has pain along knee. No tenderness overlying trochanters, no tenderness about patella, quad tendon, patellar tendon. No tenderness at tibial tuberosity. Spine/Ribs- No deformities, masses. Tenderness C/T/L paraspinal. Difficult to raise legs. Neurological: General- Moves all 4 extremities symmetrically w/ command. Cranial nerves- individually evaluated II-XII and intact. PERRLA, Normal EOMI, visual/special senses appear intact, Face is symmetrical and normal sensation/ movement, normal tongue, normal strength/posture of neck musculature. Neuropsych: Oriented- Person, place, time. (AAOx3), Mood/affect- normal and congruent. Angry, irritable. Vocalized dislikes to food as noted in HPI. Noted dislike of urinating and stooling overnight as listed above. I discussed we are here to help her and these things need to be done. Speech-Normal speech, normal rate, normal tone, normal use of language, volume and coherence. Thought content- normal with ability to perform basic computations and apply abstract thought/reason. Associations- intact, no SI/HI, no hallucinations, delusions, obsessions. Judgment/insight- Appropriate. Memory-Recall intact, remote and recent memory intact. Knowledge- Age appropriate fund of knowledge, concentration and attention span normal. Lymphatic: Head/Neck- normal size and non tender to palpation. Axillary- normal size and non tender to palpation. Femoral and Inguinal- normal size and non tender to palpation. Laboratory Last Values WBC 5.38 K/ul (4.6-10.2) 01/30/18 04:40 RBC 3.96 10^6/ul (4.20-5.40) L 01/30/18 04:40 Hgb 11.7 g/dl (12.0-16.0) L 01/30/18 04:40 Hct 34.0 % (37.0-47.0) L 01/30/18 04:40 MCV 85.9 fl (81.0-99.0) 01/30/18 04:40 MCH 29.5 pg (27.0-31.0) 01/30/18 04:40 MCHC 34.4 (31.8-35.4) 01/30/18 04:40 RDW Coeff of Cathy 12.2 % (11.6-14.8) 01/30/18 04:40 Plt Count 278 10^3/uL (140-440) 01/30/18 04:40 Immature Gran % (Auto) 0.4 % (0.0-5.0) 01/30/18 04:40 Neut % (Auto) 56.2 01/30/18 04:40 Lymph % (Auto) 32.0 (10.0-50.0) 01/30/18 04:40 Mcdonough % (Auto) 6.7 (0-10) 01/30/18 04:40 Eos % (Auto) 4.1 % (0.0-7.0) 01/30/18 04:40 Baso % (Auto) 0.6 % (0.0-3.0) 01/30/18 04:40 Immature Gran # (Auto) 0.0 (0.0-1.0) 01/30/18 04:40 Neut # (Auto) 3.0 K/ul (2.0-6.9) 01/30/18 04:40 Lymph # (Auto) 1.7 K/uL (0.60-3.4) 01/30/18 04:40 Mcdonough # (Auto) 0.4 K/uL (0.4-2.0) 01/30/18 04:40 Eos # (Auto) 0.2 K/ul (0.0-0.7) 01/30/18 04:40 Baso # (Auto) 0.0 K/uL (0-0.2) 01/30/18 04:40 Sodium 139.5 mmol/L (137-145) 01/30/18 04:40 Potassium 2.45 mmol/L (3.5-5.1) L* 01/30/18 04:40 Chloride 102.5 mmol/L (98-107) 01/30/18 04:40 Carbon Dioxide 35.6 mmol/L (22-30.0) H 01/30/18 04:40 Anion Gap 3.85 01/30/18 04:40 BUN 6.3 mg/dL (7-17) L 01/30/18 04:40 Creatinine 0.86 mg/dL (0.60-1.30) 01/30/18 04:40 Estimated GFR (MDRD) 68.00 mL/min 01/30/18 04:40 BUN/Creatinine Ratio 7.32 01/30/18 04:40 Glucose 96.8 mg/dL (74-106) 01/30/18 04:40 Calcium 8.66 mg/dL (8.4-10.2) 01/30/18 04:40 Phosphorus 4.23 mg/dL (2.5-4.5) 01/30/18 00:25 Magnesium 1.61 mg/dL (1.6-2.3) 01/30/18 04:40 Total Bilirubin 0.22 mg/dL (0.2-1.3) 01/30/18 04:40 AST 21.6 U/L (14-36) 01/30/18 04:40 ALT 12.9 U/L (0-35) 01/30/18 04:40 Alkaline Phosphatase 62.0 U/L (38-126) 01/30/18 04:40 Total Protein 6.22 g/dL (6.3-8.2) L 01/30/18 04:40 Albumin 3.35 g/dL (3.5-5.0) L 01/30/18 04:40 Globulin 2.87 01/30/18 04:40 Albumin/Globulin Ratio 1.16 01/30/18 04:40 Na/K Trends 01/29/18 01/29/18 01/30/18 Range/Units 20:06 22:25 00:25 Sodium (137-145) mmol/L Potassium 2.14 L* 2.15 L* 2.15 L* (3.5-5.1) mmol/L 01/30/18 01/30/18 Range/Units 02:25 04:40 Sodium 139.5 (137-145) mmol/L Potassium 2.45 L* 2.45 L* (3.5-5.1) mmol/L (1) Hypokalemia, gastrointestinal losses Status: Acute Code(s): E87.6 - HYPOKALEMIA SNOMED Code(s): 43910168 (2) Hypomagnesemia Status: Acute Code(s): E83.42 - HYPOMAGNESEMIA SNOMED Code(s): 248707990 (3) BMI 45.0-49.9, adult Status: Acute Code(s): Z68.42 - BODY MASS INDEX (BMI) 45.0-49.9, ADULT SNOMED Code(s): 344158051 (4) Diabetes mellitus with hemoglobin A1c goal of 7.0%-8.0% Status: Acute Code(s): E11.9 - TYPE 2 DIABETES MELLITUS WITHOUT COMPLICATIONS SNOMED Code(s): 831548710 (5) Chronic anticoagulation Status: Acute Code(s): Z79.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 I will be more comfortable once >2.50. We will give her 40meq po with TID meals today. Increase foods rich in K+ today. She vocalized dislike of many of the foods. I discussed we need to get them in as she is poor vascular access. If worsening, if not improving, if not tolerating food, we may need to transfer for central line. I would consider as outpatient to have port placed for vascular access. She has prominent vascular issues bilateral LE. She has not had any stool losses since being in hospital. It is difficult to assess urine/sodium K+ Transtubalar gradient as she is not steady state. Renal losses are considered. However, she has not had uout overnight either. Without stool/without urine losses, this does not make sense other than she is not eating foods high in potassium. When I suggested fruits yogurts etc, she said she does not like those. I am concerned with diet. I will have benefits advisor come in and see her. For now she is improving up to 2.45. We will continue to monitor K+, continue to monitor Tele and try to get K+ in anyway way we can. 40meq should raise her by about 0.4. She has had this twice plus IV plus extra IV K+ and she has only improved ~0.15. We will add OJ w/ breakfast, banana, yogurt and give potato. We will also have mixed veggies with lunch with squash. Mg is corrected. I will await uout. Sodium stable, renal function appears stable. - Continue NS +20meq K 60/hour for now. - Continue 40 meq PO TID WM. - Q 2 hour monitor for K+ Hypomagnesemia: Resolved. Diabetes: Controlled. Stopped lantus/tresiba. Not on metformin now. Diarrhea: Reported but no BM during hospital stay. We will take her off cdiff precaution. Knee wound: Monitor, culture pending. Bandaged. DVT Prophy: Home xarelto continued. Diet: regular. Activity: Up with assist. I want her out of hospital bed today. Disposition: IF she is not starting to show improvement today, I may reach out to larger hospital for assistance with vascular access. Difficult stick, IV x 1 failed to get second IV site. She has expressed disinterest in multiple food types. >35 minutes spent with patient today. Addendun 1800 Monitoring K+ throughout today. We have increased her from 2.14 to 2.97. WE will change to q 6 hours monitoring. Na/K Trends 01/29/18 01/29/18 01/30/18 Range/Units 20:06 22:25 00:25 Sodium (137-145) mmol/L Potassium 2.14 L* 2.15 L* 2.15 L* (3.5-5.1) mmol/L 01/30/18 01/30/18 01/30/18 Range/Units 02:25 04:40 07:00 Sodium 139.5 (137-145) mmol/L Potassium 2.45 L* 2.45 L* 2.74 L* (3.5-5.1) mmol/L 01/30/18 01/30/18 01/30/18 Range/Units 09:15 11:00 13:30 Sodium (137-145) mmol/L Potassium 2.57 L* 2.72 L* 2.97 L (3.5-5.1) mmol/L
[2018-01-30] MEDS ORDERED: K-DUR PO ONE (07:00)
[2018-01-30] MEDS ORDERED: NON-FORMULARY MEDICATION (Rivaroxaban [Xarelto] 20 MG) PO SCH (09:00)
[2018-01-30] MEDS ORDERED: NON-FORMULARY MEDICATION (Ferrous Sulfate [Iron] 325 MG) PO SCH (09:00)
[2018-01-30] MEDS: TRIGLIDE PO SCH (09:06)
[2018-01-30] MEDS: NEURONTIN PO SCH ×3 (09:06→20:38)
[2018-01-30] MEDS: PLETAL PO SCH ×2 (09:06→20:40)
[2018-01-30] MEDS: XARELTO PO SCH (09:07)
[2018-01-30] MEDS: COREG PO SCH ×2 (09:07→16:54)
[2018-01-30] MEDS: MAG-OX PO SCH ×2 (09:07→20:49)
[2018-01-30] MEDS: LASIX TAB PO SCH (09:07)
[2018-01-30] MEDS: TRADJENTA PO SCH (09:08)
[2018-01-30] MEDS: NORCO 10-325 PO SCH ×2 (09:08→20:40)
[2018-01-30] MEDS: ZESTRIL PO SCH (09:08)
[2018-01-30] MEDS: K-DUR PO SCH ×3 (09:08→16:54)
[2018-01-30] MEDS: FERROUS SULFATE PO SCH (09:08)
[2018-01-30] MEDS: BACTROBAN TP SCH ×3 (09:09→20:41)
[2018-01-30] MEDS: SODIUM CHLORIDE 0.9%-KCL 20 MEQ 1,000 ML IV SCH (16:54)
[2018-01-30] MEDS ORDERED: MINIPRESS ONE (20:47)
[2018-01-30] MEDS ORDERED: MAG-OX ONE (20:47)
[2018-01-30] MEDS: MINIPRESS PO SCH (20:48)
[2018-01-30] MEDS ORDERED: REQUIP PO SCH (21:00)
[2018-01-30] MEDS ORDERED: ZOCOR PO SCH (21:00)
[2018-01-31] MEDS: SODIUM CHLORIDE 0.9%-KCL 20 MEQ 1,000 ML IV SCH (03:27)
[2018-01-31] MEDS: PROTONIX PO SCH (05:57)
[2018-01-31] MEDS: LASIX TAB PO SCH (05:57)
[2018-01-31] MEDS: CARAFATE PO SCH ×2 (06:45→12:02)
--- NOTE | 2018-01-31 08:06 | PCM.DC ---
Final Diagnosis: Hypokalemia, gastrointestinal losses (Acute/resolved) Hypomagnesemia (Acute/resolved) Leg cramps (Acute) BMI 45.0-49.9, adult (Chronic) Chronic anticoagulation (Chronic) Diabetes mellitus with hemoglobin A1c goal of 7.0%-8.0% (Chronic) Vasculopathy/PAD (CHronic) (1) Hypokalemia, gastrointestinal losses Status: Acute Code(s): E87.6 - HYPOKALEMIA SNOMED Code(s): 24298988 (2) Hypomagnesemia Status: Resolved Code(s): E83.42 - HYPOMAGNESEMIA SNOMED Code(s): 165994895 (3) BMI 45.0-49.9, adult Status: Chronic Code(s): Z68.42 - BODY MASS INDEX (BMI) 45.0-49.9, ADULT SNOMED Code(s): 819921112, 600610298 (4) Diabetes mellitus with hemoglobin A1c goal of 7.0%-8.0% Status: Chronic Code(s): E11.9 - TYPE 2 DIABETES MELLITUS WITHOUT COMPLICATIONS SNOMED Code(s): 318793358, 051103003 (5) Chronic anticoagulation Status: Chronic Code(s): Z79.01 - PENITENTIARY (CURRENT) USE OF ANTICOAGULANTS SNOMED Code(s): 552461486 (6) Diarrhea Status: Resolved Code(s): R19.7 - DIARRHEA, UNSPECIFIED SNOMED Code(s): 46767503 (7) Leg cramps Status: Resolved Code(s): R25.2 - CRAMP AND SPASM SNOMED Code(s): 562094508 Reason for Hospitalization: Severe life threatening hypokalemia with hypomagnesemia w/ reported GI losses. Chronic anticoagulation, chronic morbid obesity. Prognosis at Discharge: She has been stable throughout stay. We have had her >2.9 for 19 hours. SHe is ready for d/c home and this is reasonable. Education has been given regarding food choices. Supplements of potassium d/w patient. Improved/stable. Condition at Discharge: Stable to improved. K+ >3.1 at discharge x 2 draws 6 hours apart. Medications at Discharge: Ambulatory Orders Medication Instructions Recorded Albuterol Sulfate [Proair Hfa] 2 puff IH Q4H PRN 10/28/16 Diphenhydramine HCl 50 mg PO Q6HR PRN 10/28/16 Prazosin HCl [Minipress] 2 mg PO BEDTIME 06/04/17 Acetaminophen [Tylenol] 1,000 mg PO BID 09/28/17 Promethazine HCl 25 mg PO every 6 hrs PRN 01/06/18 Ferrous Sulfate [Iron] 325 mg PO DAILY 01/29/18 Pentoxifylline 400 mg PO BID 01/29/18 Magnesium Oxide [Mag-Ox] 800 mg PO BID 14 Days #28 tablet 01/31/18 Potassium Chloride [K-Dur] 20 meq PO TIDWM 14 Days #42 tab 01/31/18 Lab/Diagnostics: Laboratory Last Values WBC 5.20 K/ul (4.6-10.2) 01/31/18 04:00 RBC 4.15 10^6/ul (4.20-5.40) L 01/31/18 04:00 Hgb 12.1 g/dl (12.0-16.0) 01/31/18 04:00 Hct 36.2 % (37.0-47.0) L 01/31/18 04:00 MCV 87.2 fl (81.0-99.0) 01/31/18 04:00 MCH 29.2 pg (27.0-31.0) 01/31/18 04:00 MCHC 33.4 (31.8-35.4) 01/31/18 04:00 RDW Coeff of Cathy 12.5 % (11.6-14.8) 01/31/18 04:00 Plt Count 264 10^3/uL (140-440) 01/31/18 04:00 Immature Gran % (Auto) 0.6 % (0.0-5.0) 01/31/18 04:00 Neut % (Auto) 51.9 01/31/18 04:00 Lymph % (Auto) 34.2 (10.0-50.0) 01/31/18 04:00 [place] % (Auto) 7.9 (0-10) 01/31/18 04:00 Eos % (Auto) 4.8 % (0.0-7.0) 01/31/18 04:00 Baso % (Auto) 0.6 % (0.0-3.0) 01/31/18 04:00 Immature Gran # (Auto) 0.0 (0.0-1.0) 01/31/18 04:00 Neut # (Auto) 2.7 K/ul (2.0-6.9) 01/31/18 04:00 Lymph # (Auto) 1.8 K/uL (0.60-3.4) 01/31/18 04:00 [place] # (Auto) 0.4 K/uL (0.4-2.0) 01/31/18 04:00 Eos # (Auto) 0.3 K/ul (0.0-0.7) 01/31/18 04:00 Baso # (Auto) 0.0 K/uL (0-0.2) 01/31/18 04:00 Sodium 142.5 mmol/L (137-145) 01/31/18 04:00 Potassium 3.11 mmol/L (3.5-5.1) L 01/31/18 04:00 Chloride 105.3 mmol/L (98-107) 01/31/18 04:00 Carbon Dioxide 35.2 mmol/L (22-30.0) H 01/31/18 04:00 Anion Gap 5.11 01/31/18 04:00 BUN 6.4 mg/dL (7-17) L 01/31/18 04:00 Creatinine 0.93 mg/dL (0.60-1.30) 01/31/18 04:00 Estimated GFR (MDRD) 62.00 mL/min 01/31/18 04:00 BUN/Creatinine Ratio 6.88 01/31/18 04:00 Glucose 124.7 mg/dL (74-106) H 01/31/18 04:00 Calcium 8.20 mg/dL (8.4-10.2) L 01/31/18 04:00 Phosphorus 4.23 mg/dL (2.5-4.5) 01/30/18 00:25 Magnesium 1.61 mg/dL (1.6-2.3) 01/30/18 04:40 Total Bilirubin 0.13 mg/dL (0.2-1.3) L 01/31/18 04:00 AST 19.8 U/L (14-36) 01/31/18 04:00 ALT 12.0 U/L (0-35) 01/31/18 04:00 Alkaline Phosphatase 55.1 U/L (38-126) 01/31/18 04:00 Total Protein 5.90 g/dL (6.3-8.2) L 01/31/18 04:00 Albumin 3.12 g/dL (3.5-5.0) L 01/31/18 04:00 Globulin 2.78 01/31/18 04:00 Albumin/Globulin Ratio 1.12 01/31/18 04:00 Na/K Trends 01/29/18 01/29/18 01/30/18 Range/Units 20:06 22:25 00:25 Sodium (137-145) mmol/L Potassium 2.14 L* 2.15 L* 2.15 L* (3.5-5.1) mmol/L 01/30/18 01/30/18 01/30/18 Range/Units 02:25 04:40 07:00 Sodium 139.5 (137-145) mmol/L Potassium 2.45 L* 2.45 L* 2.74 L* (3.5-5.1) mmol/L 01/30/18 01/30/18 01/30/18 Range/Units 09:15 11:00 13:30 Sodium (137-145) mmol/L Potassium 2.57 L* 2.72 L* 2.97 L (3.5-5.1) mmol/L 01/30/18 01/31/18 Range/Units 22:07 04:00 Sodium 142.5 (137-145) mmol/L Potassium 3.18 L 3.11 L (3.5-5.1) mmol/L A1C: 5.11 Wound Culture: benitez senstive staph Aureus. Education Provided to Patient and Family: 1. Foods rich in K+ d/w patient she did not like most of what was on the list, which contributes to her low K+. 2. Wound care recommended, I will recommend that her PCP INNA Jennings refer her to wound therapy. She may have this through as her vascular team is through there. - Wound has Staph Aureus, not MRSA. On bactroban. I would caution using abx just yet as this looks contaminated, no underlying abscess and worry about diarrhea and low K+ Again. Close monitoring. 3. Weight management is needed drastically. 4. Poor underlying understanding of medical problems complicates this patients health. Follow-ups: 1. HEAD STOCK TRANSFER CLERK [facility] in next 3-5 days. 2. Repeat CMP, REpeat MG++ friday. 3. Consider referral to wound care through [facility] on friday. Disposition: HOME SELF-CARE Hospital Course: 57 yo female Hospital day 3 admitted by me on 01/29 directly with abnl K+ of 2.37 and low magnesium 1.53. She reports 5+ times per day diarrhea over last 1 year. This has possibly contributed to hypokalemia. We discussed her symptoms and directly admitted her. IV started in left forearm. EKG completed NSR w/ RBB , tele started and remained SR w/ BBB throughout entire stay. No arrhythmia noted. We started her on NS +20meq K+ at 100/hour and started oral replacement with Kdur 40meq TID with meals. We tried K runs but she could not tolerate this , tried to get secondary IV site, could not tolerate this, then asked us to turn down the fluids and we turned those down to 60ml/hour of the NS+20meqK. Starting yesterday am I talked with dietary and she was instrected to eat yogurt "I DONT like yogurt" banana (DID NOT EAT), whole wheat bread (ate), tomato Juice "It causes reflux", [place] juice (ate this but not happy about it) . I had them add potato, zucchini (mixed veggies yesterday, did not like veggies). The patient fought dietary intake, fought IV intake and we had difficulty setting IV/drawing due to poor vascular status. She has history of fem pop, following with vascular regularly. We found her diabetes to be very well controlled and we stopped metformin and insulin. I would continue the jardiance and the trajenta for now but likely back off trajenta next and keep jardiance until next A1c in 3 months says <6.5 and consider stopping that too. It is somewhat cardioprotective and BP reducing so this can likely be the last to decrease. She has an active wound along medial right knee that grew MSSA ( NOT MRSA). Bactroban would do fine for now. Consider referral to wound management as this seems to be more of a vascular wound than anything. Potassium dropped initially to 2.11 and then steadily increased with the 40meq TID dosing and the dietary increases. She went from 2.37 to 2.14 to 2.15 (x2), to 2.45 (x2), 2.74, 2.57, 2.72, 2.97, 3.18, 3.11 (04:00) this am. She has felt fine throughout stay, used CPAP, vitals remained stable. I gave her mag oxide 800 BID and her Mg normalized. We will continue this until seen by PCP who can decide if this is to be continued. REmainder of labs looked okay, telemetry did not show any significant arrhythmias and the patient continued to do just fine. NO diarrhea, no BM at all throughout hospital stay. She has need to go, just did not want to. This am she reported need to have a BM and nursing addressed this. This was somewhat complicated by her personal use of imodium. SHe has passed gas, Uout has been reasonable. F/U with Gi for this problem. I have stopped metformin, which should help w/ diarrhea reduction as well. Very detailed discussion with patient about foods rich in K+ d/w patient, need for K + in diet d/w patient, involvement of this with the cardiac rhythms d/w patient. She was aware. THis am I checked on her, vitals looked great. I gave her option to continue to monitor for another 12-24 hours and d/c at that point or now that she has remained asymtomatic and the levels have been above critical at least 12 hours to consider d/c at her leisure this am. She asked about noon, this is reasonable. I will have her f/u with INNA jennings friday, repeat CMP and MG. I will continue TID 20meq K+ w/ meals, continue mag oxide 800 BID for now. I want her to continue the bactroban. Avoid abx orally for now to decrease chances of diarrhea. She was on c diff precaution early at entry but this was d /c without any diarrhea throughout stay. She has felt fine, vitals good, uout stable. She has been relatively impertinent throughout stay, denying foods and refusing many of the options. I tried to discuss importance of many of them but she is not interested in this. I will set up home health, home physical therapy, occupational therapy as this may benefit her. I would like her to f/u with vascular and to consider f/u with wound care for her leg. Her DM is overtreated and she and I discussed this today. Weight loss highly encouraged. Continue using CPAP. Day of d/c exam no different than admit/rounding day 1. No abx other than topical used for this admission. She resumed her home dose of xarelto and was asked to continue home meds. - D/C insulin, D/C metformin they are not needed at this time. - F/U HEAD STOCK TRANSFER CLERK [facility] friday - Repeat labs friday - Dietary changes needed - Weight loss needed - Vascular status complicated. Day of D/C physical exam: Constitutional: Appearance-No acute distress, Using CPAP, using phone upon entry. Appears Older than stated age. Orientation- Oriented x 3, alert Build and Nutrition-[Morbidly obese female] General- Patient is irritable this am, grumpy and not happy. She was cooperative with the interview and exam. Integumentary: General-Right leg prominent scar from femoral to popliteal, skin breakdown anterior medial knee 4 cm wide. Pick steen bilateral LE, scaring bilateral LE. Vascular abnl, e/o poor circulation. Pedal hair reduced. Cavus foot type. Palpation- LE dry. Overall Skin is warm to touch, appropriate. Capillary refill is normal bilateral Upper and mildly reduced bilateral lower extremity. Numerous hypopigmented macules bilateral UE along forearm dorsal aspect. Head/Neck: Head- normocephalic and atraumatic. Neck- without visible/palpable lumps or pulsations. Palpation- No bony tenderness about head/neck along frontal, occipital, temporal, parietal, mastoid, jawline, zygoma, orbit or any other location. NO temporal artery tenderness. No TMJ tenderness. Neck Supple. Thyroid-No thyromegaly, no nodules Eye: Bilaterally PERRLA, EOMI. No discharge. Upper and lower eyelids are normal. Sclera/conjunctiva normal without discharge. Cornea is normal and clear. Lens is normal. Eyeball appears normal. No ciliary flushing, no conjunctival injection. ENMT: Nose and sinus- No sinus tenderness along frontal/maxillary region. External appearance normal and midline. Nares- bilateral quiet airflow, no discharge. Nasal mucosa- No bleeding noted and no ulcerations observed. [place], moist. Turbinates non boggy. Lips- normal color, moist without cracks/lesions Oral Cavity/Palate- hard/soft palate intact without lesions, oral mucosa pink and moist. Edentulous. Tongue/uvula normal midline. Oropharynx- no pharyngeal erythema, Uvula midline. No post nasal drip. No exudate. Salivary glands- Non tender to palpation CHEST/LUNG: Inspection- symmetric chest wall no pectus deformity. Normal effort , no distress, no use of accessory muscles. Palpation- nontender sternum, ribline. No abnormal pulsations. Auscultation- Breath sounds normal throughout all lung mcnamara. Normal tracheal sounds, Normal bronchial sounds overlying sternum, Bronchovessicular sounds normal between scapulae posteriorly, Normal vessicular breath sounds heard throughout periphery. Lungs are clear today. Adventitious sounds- No wheezes, rales, rhonchi. CARDIOVASCULAR: Palpation/Percussion- Normal PMI, no palpable thrill Auscultation- Regular rate and rhythm. No murmur noted in sitting, supine positions. Extremities- no digital clubbing, cyanosis. She has chronic edema bilateral LE. ABDOMEN: Inspection- normal and no visible pulsations. Normal contour. Auscultation- Bowel sounds normal, no abdominal bruits. Palpation/Percussion- soft, non-tender, no rebound tenderness, no rigidity (guarding), no jar tenderness, no masses. Peripheral Vascular: Lower extremity- Ulceration just below right knee medially. Bandaged appropriately Prominent scarring mid shins. DP pulses palpable/thready. Pedal hair reduced. Edema is present 1+ today to mid [place]. Numerous lesions bilateral LE, excoriations. Musculoskeletal: Generalized-No generalized swelling or edema of extremities, no digital clubbing or cyanosis, neurovascularly intact all four extremities. Upper extremity- Cell Reliner 5/5 bilaterally. IV left ventral forearm. Lower extremity- Hip: Not tender to palpation, Reduced hip ROM bilaterally without pain. Knee: Knee ROM normal. reduced. Prominent scarring. She has pain along knee. No tenderness overlying trochanters, no tenderness about patella, quad tendon, patellar tendon. No tenderness at tibial tuberosity. Spine/Ribs- No deformities, masses. Tenderness C/T/L paraspinal. Difficult to raise legs. Neurological: General- Moves all 4 extremities symmetrically w/ command. Cranial nerves- individually evaluated II-XII and intact. PERRLA, Normal EOMI, visual/special senses appear intact, Face is symmetrical and normal sensation/ movement, normal tongue, normal strength/posture of neck musculature. Neuropsych: Oriented- Person, place, time. (AAOx3), Mood/affect- normal and congruent. Angry, irritable. Vocalized dislikes to food as noted in HPI. Noted dislike of urinating and stooling overnight as listed above. I discussed we are here to help her and these things need to be done. Speech-Normal speech, normal rate, normal tone, normal use of language, volume and coherence. Thought content- normal with ability to perform basic computations and apply abstract thought/reason. Associations- intact, no SI/HI, no hallucinations, delusions, obsessions. Judgment/insight- Questionable Lymphatic: Head/Neck- normal size and non tender to palpation. Axillary- normal size and non tender to palpation. Femoral and Inguinal- normal size and non tender to palpation. Plan: 1. D/C today 2. Home health for phys/occ therapy 3. Continue TID 20meq K+Cl- w/ meals 4. Continue mag oxide 800 BID 5. Stop insulin, stop metformin, consider stopping trajenta. Keep jardiance for now. 6. Wound care encouraged. 7. Weight loss encouraged 8. Dietary changes encouraged 9. When to f/u with PCP d/w patient ,when to return to ER if needed d/w patient. >30 minutes spent with patient in discharge, review of tele, am labs, overnight notes.
[2018-01-31] MEDS: COREG PO SCH (08:33)
[2018-01-31] MEDS: TRADJENTA PO SCH (08:33)
[2018-01-31] MEDS: ZESTRIL PO SCH (08:34)
[2018-01-31] MEDS: NEURONTIN PO SCH (08:34)
[2018-01-31] MEDS: PLETAL PO SCH (08:34)
[2018-01-31] MEDS: TRIGLIDE PO SCH (08:34)
[2018-01-31] MEDS: FERROUS SULFATE PO SCH (08:35)
[2018-01-31] MEDS: K-DUR PO SCH ×2 (08:35→12:02)
[2018-01-31] MEDS: MAG-OX PO SCH (08:35)
[2018-01-31] MEDS: XARELTO PO SCH (08:35)
[2018-01-31] MEDS: NORCO 10-325 PO SCH (08:37)
[2018-01-31] MEDS: BACTROBAN TP SCH (08:43)
[2018-01-31 10:07] VITALS: BP 91/59; TEMP 98.1
== END 2018-01-31 13:15 | disposition home or self-care (01) | DRG 641 ==
LOC: MEDSURG B 14:08
PROVIDERS: ADMIT Family Medicine; ATTEND Family Medicine
DX: E83.42 Hypomagnesemia (principal); Z68.42 Body mass index [BMI] 45.0-49.9, adult; E11.9 Type 2 diabetes mellitus without complications; R19.7 Diarrhea, unspecified; R25.2 Cramp and spasm; Z79.01 Long term (current) use of anticoagulants
CPT/HCPCS: 36415; 80053; 80061; 82962; 83036; 83735; 84100; 84132; 85025; 87070; 87186; 93005; 93010

== ENCOUNTER 2018-02-03 13:17 | Outpatient (CLI) | payer OTHER | END 2018-02-03 13:18 | disposition home or self-care (01) | LOC: FCC-LAB 13:17 | PROVIDERS: ATTEND Nurse Practitioner Family | DX: E11.9 Type 2 diabetes mellitus without complications (principal); N28.9 Disorder of kidney and ureter, unspecified; E83.42 Hypomagnesemia; M24.612 Ankylosis, left shoulder; Z86.39 Personal history of other endocrine, nutritional and metabolic disease | CPT/HCPCS: 36415; 80048; 83735 ==

== ENCOUNTER 2018-02-06 11:00 | Outpatient (RCR) | END 2018-02-11 23:59 | LOC: NEWBEG 11:00 | PROVIDERS: ATTEND Psychiatry & Neurology Psychiatry | DX: F33.1 Major depressive disorder, recurrent, moderate (principal); F41.9 Anxiety disorder, unspecified; F43.10 Post-traumatic stress disorder, unspecified; F60.9 Personality disorder, unspecified | CPT/HCPCS: 90853; 99213 ==

== ENCOUNTER 2018-02-09 14:00 | Outpatient (RCR) ==
--- NOTE | 2018-02-05 14:43 | RS.OPPTEV2 ---
Date of Note: 02/05/18 Visit #: 1 Number of visits approved by Insurance: n/a Date of Evaluation: 02/05/18 Payer Source: MEDICARE Surgery Performed?: No Treatment Diagnosis: adhesions of L shoulder joint History of Condition/Mechanism of Injury:: pt states she had no definite injury to shld. States it began hurting 2-3 months ago. Prior Level of Function.....Patient was independent with: ADL's, Self Care, Ambulation/Mobility, Community Integration/Access Level of Function: pt lives alone, amb without AD, independent with selfcare Functional Limitations: Sleep, Reaching, Pushing, Pulling, Lifting, Carrying Current Subjective/complaints:: pt states her shld pain is becoming increasingly worse. She states she can't tolerate the cat laying on her shld. Treatment Side (optional): Left *Precautions: No electrical modalities due to h/o CA and vascular issues Medical History Medical History: CVA/TIA, Diabetes, Arthritis, Cancer (colon cancer) Medical History Comments:: anxiety, depression, GERD, vascular disease Surgical History: Cervical Spine Surgical History Comments:: colon sx, multiple vascular surgeries to BLE, Smoking Status: Former smoker Diagnostic Testing/Imaging:: L shld x ray: no osseous abnormality Hx Home Medications: potassium chloride, magnesium oxide, pentoxifyline, ferrous sulfate, cilostazol, fenofibrate, ropinirole, sucralfate, simvastatin, mupirocin calcium, promethazine hcl, pantoprazole, gabapentin, linagliptin, furosemide, carvedilol, lisinopril, rivaroxaban, acetaminophen, prazosin hcl, hydrocodone/acetaminophen, diphenhydramine hcl Patient's Goals: decrease pain in shld Pain Assessment - Pain Description Pain Location: L shld Pain Description: Sharp, Aching Current Pain Intensity: 6/10 Worst Pain Intensity: 8/10 Functional Outcome Measure UE Functional Index: 48 (40%) - G Codes & Severity Modifier G Codes & Modifier: carrying moving and handling objects: current CK. carrying moving and handling objects: goal CJ Source of G Code score: UE functional scale Observation - Observation Posture: Forward Head, Rounded Shoulders, Increased Thoracic Kyphosis, Decreased Lumbar Lordosis Girth Measurement Upper: Mid upper arm: Right 41cm, Left 46 cm Gait - Gait Pattern General Gait Pattern Observation: Wide Based Gait, Lateral Trunk Lean General Range of Motion: RUE WFL's. BLE WFL's Muscle Strength: RUE 5/5. BLE 4+/5 Shoulder ROM: Right WFL's Shoulder Muscle Strength: Right WFL's - Left Shoulder ROM Left Shoulder Flexion: 109 (AAROM) Left Shoulder Abduction: 81 (AAROM) Comments: IR/ER AAROM WFL's with pain - Left Shoulder Strength Left Shoulder Flexion: 3- Fair- Left Shoulder Extension: 3- Fair- Left Shoulder Abduction: 3- Fair- Left Shoulder Adduction: 3- Fair- Comments: L elbow flex/ext 3+/5 with pain with MMT - Special Tests Shoulder Empty Can (Supraspinatus) Test: Positive Left Shoulder Yergason's Test: Positive Left Shoulder Speed's Sign Test: Positive Left Shoulder Bob-Adis Impingement Test: Positive Left Palpation Palpation Findings: Tenderness, Trigger Point Comments:: tenderness noted in area of biceps tendon as well as in area of supraspinatus tendon. Trigger points in upper trap Sensation - Sensation Right Upper Extremity: Intact/Normal Left Upper Extremity: Impaired (n/t L hand) Right Lower Extremity: Impaired Left Lower Extremity: Impaired Comments: n/t B LE Balance - Sitting Balance Static Sitting Balance: Normal Dynamic Sitting Balance: Normal - Standing Balance Static Standing Balance: Good Dynamic Standing Balance: Good - Heat/Cryotherapy Treatment: Cryotherapy Interventions - Exercise/Activities/Manual Therapy Exercises/Activities: pt performed upper trap stretch, scapular retractions, shld shrugs, pendulum ex as well as AAROM using cane. Manual Therapy: n/a HOME EXERCISE PROGRAM: pt given written HEP including pendulum ex, upper trap stretch, scapular retraction, shld shrugs x 5 reps - Charges Timed Code Treatment Minutes: 49 Total Treatment Time: 58 Procedures billed for this date of service:: eval med, ex, CP EVALUATION COMPLEXITY LEVEL EVALUATION COMPLEXITY LEVEL: HISTORY: Medium (L shld pain, DM, OA, CVA, CA), EXAM OF BODY SYSTEMS: Medium (pain, ROM, strength, ability to perform ADL's, cognitive issues.), CLINICAL PRESENTATION: Medium, CLINICAL DECISION MAKING: Medium Assessment Assessment: pt presents with pain in L shld with decreased ROM as well as signs of possible impingement/tendonitis in L shld. pt has pain with all ROM. Patient Education: Home Exercise Program, Education of Plan of Care Rehab Potential: Good Short Term Goals Goal #1: Improve L shld ROM flex 120 abd 100 Goal to be met by: 02/19/18 Goal #2: pt independent with intial HEP Goal to be met by: 02/19/18 Goal #3: pt with improved cervical ROM with decreased pain Goal to be met by: 02/19/18 Correction Goals Goal #1: Decreased pain < 6/10 with activity Goal to be met by: 03/05/18 Goal #2: pt report increased ability to perfrom normal household duties w less pain Goal to be met by: 03/05/18 Goal #3: Improved L shld AROM WFL's Goal to be met by: 03/05/18 Goal #4: Improve strength L shld 4- to 4/5 Goal to be met by: 03/05/18 Plan - Treatment to be Provided Procedures: Therapeutic Exercises, Therapeutic Activity, Neuromuscular Rehab, Manual Therapy, Patient Education Modalities: Cryotherapy, Hot Packs Other:: no electrical modalities due to h/o CA and vascular issues - Treatment Plan Frequency: 2-3x week Duration: 4 weeks Dates of Hand [employer] Maker Goals: 03/05/18 Expiration date of current Insurance Approval:: n/a - Treatment Code (1) Left shoulder pain Code(s): M25.512 - PAIN IN LEFT SHOULDER Qualifiers: Chronicity: chronic Qualified Code(s): M25.512 - Pain in left shoulder; G89.29 - Other chronic pain (2) Adhesions of left shoulder joint Code(s): M24.612 - ANKYLOSIS, LEFT SHOULDER (3) Weakness Code(s): R53.1 - WEAKNESS
--- NOTE | 2018-02-11 09:11 | RS.OPPTDN ---
Subjective Date of Note: 02/09/18 Visit #: 2 Number of visits approved by Insurance: NA Date of Evaluation: 02/05/18 Payer Source: MEDICARE Treatment Diagnosis: adhesions of L shoulder joint Current Subjective/complaints:: Patient reports pain at the anterior left shoulder joint with all movements. *Precautions: No electrical modalities due to h/o CA and vascular issues Pain Assessment - Pain Description Pain Location: Left shoulder Current Pain Intensity: 6-7/10 - Heat/Cryotherapy Treatment: Hot Pack ([id number] to the left shoulder prior to EX. Patient in sitting. ) Interventions - Exercise/Activities/Manual Therapy Exercises/Activities: PROM of the left shoulder, all directions, in sitting. Isometric shoulder add, ext, IR and ER. Wand for flexion and clasped hands for bilateral shoulder flexion. Scap retraction and scap retraction with red theraband. Shoulder shrugs and Codmans. Began shoulder pulleys for left shoulder flex and abd. Wall walking at finger ladder. Total minutes of Exercise: 29mins Manual Therapy: n/a HOME EXERCISE PROGRAM: pt given written HEP including pendulum ex, upper trap stretch, scapular retraction, shld shrugs x 5 reps - Charges Timed Code Treatment Minutes: 29mins Total Treatment Time: 49mins Procedures billed for this date of service:: HP, EX2 Assessment: Patient limited with exercises due to pain in the left shoulder joint. Patient Education: Body/Joint mechanics, Home Exercise Program, Activity Modification Patient demonstrates compliance with HEP?: Yes Short Term Goals Goal #1: Improve L shld ROM flex 120 abd 100 Goal to be met by: 02/19/18 Goal #2: pt independent with intial HEP Goal to be met by: 02/19/18 Progress towards Goal:: Progressing Goal #3: pt with improved cervical ROM with decreased pain Goal to be met by: 02/19/18 Blood Donor Unit Assistant Goals Goal #1: Decreased pain < 6/10 with activity Goal to be met by: 03/05/18 Goal #2: pt report increased ability to perfrom normal household duties w less pain Goal to be met by: 03/05/18 Goal #3: Improved L shld AROM WFL's Goal to be met by: 03/05/18 Goal #4: Improve strength L shld 4- to 4/5 Goal to be met by: 03/05/18 Plan Dates of Penitentiary Goals: 03/05/18 Expiration date of current Insurance Approval:: 03/05/18 PLAN: Progress with ROM and stretngthening of the left shoulder and UE.
== END 2018-02-11 23:59 ==
PROVIDERS: ATTEND Nurse Practitioner Family
DX: M24.612 Ankylosis, left shoulder (principal); M25.512 Pain in left shoulder; G89.29 Other chronic pain; R53.1 Weakness

== ENCOUNTER 2018-02-18 10:28 | Outpatient (CLI) | END 2018-02-18 10:29 | disposition home or self-care (01) | LOC: WOUND 10:28 | PROVIDERS: ATTEND Nurse Practitioner Family | DX: S80.211A Abrasion, right knee, initial encounter (principal); E11.9 Type 2 diabetes mellitus without complications; Z79.84 Long term (current) use of oral hypoglycemic drugs | CPT/HCPCS: 99213; 99215 ==

== ENCOUNTER 2018-06-11 15:14 | Emergency (ER) | payer OTHER ==
[2018-06-11 15:20] VITALS: BMI 45.0
--- NOTE | 2018-06-11 15:36 | ED.PDOC ---
General ED Provider: Dr. KRISTI LYNCH Chief Complaint: Shortness of Air Stated Complaint: Shortness of Breath. Has had difficulty breathing for past 2 day and is worsened with exertion. Experiencing pain in posterior shoulder and thoracic region. Denies fever or chills. Hx chronic vasculitis/Buerger's disease. Time Seen by Physician: 15:20 Mode of Arrival: Walk-In Information Source: Patient Exam Limitations: No limitations Primary Care Provider: HUSSEIN JUDD Referred to ED by: PCP Nursing and Triage Documentation Reviewed and Agree: Yes Does patient meet sepsis criteria?: Yes If yes, has appropriate treatment been initiated?: Yes System Inflammatory Response Syndrome: Not Applicable Sepsis Protocol: For patient's 13 years and over: Temp is 96.8 and below OR 101 and greater Pulse >90 BPM Resp >20/minute Acutely Altered Mental Status Are patient's symptoms suggestive of a new infection, such as: -Pneumonia -Skin, Soft Tissue -Endocarditis -UTI -Bone, Joint Infection -Implantable Device -Acute Abdominal Infection -Wound Infection -Meningitis -Blood Stream Catheter Infection -Unknown Respiratory Complaint Exam - Shortness of Air Complaint/Exam Symptoms Are: Worse Timing: Constant Initial Severity: Moderate Current Severity: Moderate Character: Reports: Dyspnea at rest, Dyspnea on exertion Aggravating: Reports: None Alleviating: Reports: None Associated Signs and Symptoms: Reports: Cough, Wheezing, Nasal congestion Related History: Reports: Similar episode History of Healthcare-Acquired Pneumonia: No Cardiac Risk Factors: Reports: None Pseudomonas Risk Factors: Reports: None Tuberculosis Risk Factors: Reports: None Recent Stress Test: No Recent Echo/LV Function: No Respiratory Distress: Mild Stridor Present: No Tracheal Deviation: No Subcutaneous Emphysema: No Accessory Muscle Use: No Retractions: Not Present Diminished Breath Sounds: Yes Prolonged Expiratory Phase: No Unable to Speak Full Sentences: No Fatigue: Yes Leg Swelling: No Fiona's Sign Present: No Grunting Respirations: No Kussmaul Respirations: No Differential Diagnoses: Pneumonia, Bronchitis, Laryngospasm, URI Quality Indicator For Non-Traumatic Chest Pain/Syncope: EKG Performed Review of Systems - Review Of Systems Constitutional: Reports: No symptoms, Chills Eyes: Reports: No symptoms Ears, Nose, Mouth, Throat: Reports: No symptoms Respiratory: Reports: Cough, Short of air, Wheezing Cardiac: Reports: No symptoms, Chest pain, Edema, Irregular heart rate GI: Reports: No symptoms : Reports: No symptoms Musculoskeletal: Reports: No symptoms Skin: Reports: No symptoms Neurological: Reports: No symptoms Endocrine: Reports: No symptoms Hematologic/Lymphatic: Reports: No symptoms All Other Systems: Reviewed and Negative Past Medical History - Past Medical History Previously Healthy: No (Numerous problems; vascular surgeries bilateral LEs) Endocrine: Reports: DM 2 Cardiovascular: Reports: Other (vascular insufficiency bilat LEs/DVT) Respiratory: Reports: None, COPD Hematological: Reports: None, Anemia Gastrointestinal: Reports: None, GERD Genitourinary: Reports: None, UTI Neuro/Psych: Reports: CVA Musculoskeletal: Reports: None Cancer: Reports: Colon Last Menstrual Period: menopause - Surgical History General Surgical History: Reports: Cholecystectomy, Unknown (Colon CA; multiple LE vascular surgeries) - Family History Family History: Reports: Unknown - Social History Smoking Status: Former smoker Hx Substance Use: No Alcohol Screening: None Physical Exam - Physical Exam Appearance: Ill-appearing, Obese Ill-appearing: Moderate Pain Distress: Moderate Eyes: MILLIE, EOMI, Conjunctiva clear ENT: Ears normal, Nose normal, Oropharynx normal Neck: Supple Respiratory: Airway patent Cardiovascular: RRR, Pulses normal, No rub, No murmur GI/: Soft, No masses, Bowel sounds normal Musculoskeletal: Normal strength Skin: Warm, Dry Neurological: Sensation intact, Motor intact, Alert, Oriented, Alert to verbal Psychiatric: Affect appropriate Critical Care Note - Critical Care Note Total Time (mins): 120 Course - Course Hematology/Chemistry: 06/11/18 15:55 06/11/18 15:55 Orders, Labs, Meds: Lab Review 06/11/18 06/11/18 06/11/18 15:37 15:50 15:55 WBC 10.25 H RBC 4.52 Hgb 14.1 Hct 41.2 MCV 91.2 MCH 31.2 H MCHC 34.2 RDW Coeff of Cathy 12.3 Plt Count 312 Immature Gran % (Auto) 0.4 Neut % (Auto) 69.1 Lymph % (Auto) 20.1 [place] % (Auto) 8.7 Eos % (Auto) 1.1 Baso % (Auto) 0.6 Immature Gran # (Auto) 0.0 Neut # (Auto) 7.1 H Lymph # (Auto) 2.1 [place] # (Auto) 0.9 Eos # (Auto) 0.1 Baso # (Auto) 0.1 Puncture Site Rr O2 Saturation 88.0 L ABG pH 7.451 H ABG pCO2 28.3 L ABG pO2 51.0 L* ABG HCO3 19.7 L ABG Total CO2 21 L ABG Base Excess -4 L Leon Test + FiO2 % 21.0 Sodium Potassium Chloride Carbon Dioxide Anion Gap BUN Creatinine Estimated GFR (MDRD) BUN/Creatinine Ratio Glucose Lactic Acid Calcium Magnesium Total Bilirubin AST ALT Alkaline Phosphatase Total Creatine Kinase Troponin I 0.051 Total Protein Albumin Globulin Albumin/Globulin Ratio Procalcitonin Influ A Molecular Assay Influ B Molecular Assay RSV Antigen 06/11/18 06/11/18 06/11/18 15:55 15:55 15:55 WBC RBC Hgb Hct MCV MCH MCHC RDW Coeff of Cathy Plt Count Immature Gran % (Auto) Neut % (Auto) Lymph % (Auto) [place] % (Auto) Eos % (Auto) Baso % (Auto) Immature Gran # (Auto) Neut # (Auto) Lymph # (Auto) [place] # (Auto) Eos # (Auto) Baso # (Auto) Puncture Site O2 Saturation ABG pH ABG pCO2 ABG pO2 ABG HCO3 ABG Total CO2 ABG Base Excess Leon Test FiO2 % Sodium 139.7 Potassium 3.14 L Chloride 106.1 Carbon Dioxide 21.3 L Anion Gap 15.44 BUN 9.2 Creatinine 0.74 Estimated GFR (MDRD) 81.00 BUN/Creatinine Ratio 12.43 Glucose 146.2 H Lactic Acid 1.49 Calcium 9.24 Magnesium 1.63 Total Bilirubin 0.69 AST 25.3 ALT 23.4 Alkaline Phosphatase 70.8 Total Creatine Kinase 35.1 Troponin I Total Protein 7.38 Albumin 4.03 Globulin 3.35 Albumin/Globulin Ratio 1.20 Procalcitonin 0.05 Influ A Molecular Assay Influ B Molecular Assay RSV Antigen 06/11/18 06/11/18 19:28 19:28 WBC RBC Hgb Hct MCV MCH MCHC RDW Coeff of Cathy Plt Count Immature Gran % (Auto) Neut % (Auto) Lymph % (Auto) [place] % (Auto) Eos % (Auto) Baso % (Auto) Immature Gran # (Auto) Neut # (Auto) Lymph # (Auto) [place] # (Auto) Eos # (Auto) Baso # (Auto) Puncture Site O2 Saturation ABG pH ABG pCO2 ABG pO2 ABG HCO3 ABG Total CO2 ABG Base Excess Leon Test FiO2 % Sodium Potassium Chloride Carbon Dioxide Anion Gap BUN Creatinine Estimated GFR (MDRD) BUN/Creatinine Ratio Glucose Lactic Acid Calcium Magnesium Total Bilirubin AST ALT Alkaline Phosphatase Total Creatine Kinase Troponin I Total Protein Albumin Globulin Albumin/Globulin Ratio Procalcitonin Influ A Molecular Assay Negative by naat Influ B Molecular Assay Negative by naat RSV Antigen Negative by naat Orders Category Date Time Status ABG DRAW REQUEST Stat CARDIO 06/11/18 15:38 Completed EKG-(ED ONLY) Stat CARDIO 06/11/18 15:36 Completed EKG-(ED ONLY) Stat CARDIO 06/11/18 19:55 Completed OXYGEN Routine CARDIO 06/11/18 15:36 Ordered NPO REMINDER: IMAGING ONCE CARE 06/11/18 18:38 Completed IV [ED IV/MEDIPORT/POWERPORT] .ONCE EMERGENCY 06/11/18 15:36 Active ABG Stat LAB 06/11/18 15:37 Completed BLOOD CULTURE (ED ONLY) Stat LAB 06/11/18 15:55 Received CBC W/ AUTO DIFF Stat LAB 06/11/18 15:55 Completed CMP [COMPREHENSIVE METABOLIC PANEL] Stat LAB 06/11/18 15:55 Completed CPK [CREATINE KINASE] Stat LAB 06/11/18 15:55 Completed FLU A & B MOLECULAR [FLU A/B MOLECULAR] Stat LAB 06/11/18 19:28 Completed LACTIC ACID Stat LAB 06/11/18 15:55 Completed MAGNESIUM Stat LAB 06/11/18 15:55 Completed PROCALCITONIN Stat LAB 06/11/18 15:55 Completed RSV Stat LAB 06/11/18 19:28 Completed TROPONIN I Stat LAB 06/11/18 15:50 Completed UA [URINALYSIS C & S IF INDICATED] Stat LAB 06/11/18 15:38 Uncollected 0.9 % Sodium Chloride [Saline Flush] MEDS 06/11/18 15:36 Active 1 syr IVF PRN PRN Enoxaparin Sodium [Lovenox] MEDS 06/11/18 19:54 Discontinued 125 mg SUBCUT ONCE STA CHEST, 1V AP ONLY Stat RADS 06/11/18 15:[address] CHEST PE PROTOCOL Stat RADS 06/11/18 18:37 Completed Medications Generic Name Dose Route Start Last Admin Trade Name Freq PRN Reason Stop Dose Admin Sodium Chloride 1 syr 06/11/18 15:36 Saline Flush IVF PRN PRN To flush IV Discontinued Medications Generic Name Dose Route Start Last Admin Trade Name Ruth PRN Reason Stop Dose Admin Enoxaparin Sodium 125 mg 06/11/18 19:54 06/11/18 20:05 Lovenox SUBCUT 06/11/18 19:55 125 mg ONCE STA Administration Vital Signs: Temp Pulse Resp BP Pulse Ox 06/11/18 20:03 93 H 23 158/106 H 95 06/11/18 18:50 95 06/11/18 18:22 89 94 L 06/11/18 15:15 98.5 F 97 H 24 131/79 85 L Departure - Departure Time of Disposition: 21:00 Disposition: TSF SHORT-TRM HOSP Discharge Problem: Pulmonary embolus Condition: Fair Pt referred to PMD for follow-up: No IPMP verified?: No Allergies/Adverse Reactions: Allergies Penicillins Allergy (Severe, Verified 06/11/18 15:22) throat swells Patient will notify drugstore Home Medications: Ambulatory Orders Acetaminophen [Tylenol] 1,000 mg PO BID 09/28/17 Ferrous Sulfate [Iron] 325 mg PO DAILY 01/29/18 Hydrocodone/Acetaminophen [Hydrocodon-Acetaminophn 10-325] 1 each PO TID PRN Disposition Discussed With: Patient
--- NOTE | 2018-06-11 15:54 | DI ---
Exam: Single view of the chest. Comparison: 05/10/2017. Reason for exam: Dyspnea. FINDINGS: Image interpretation is limited by the patient's body habitus. No pneumothorax, pleural effusion, or focal consolidation. Operative changes are seen after anterior cervical discectomy and fusion. Impression: No acute cardiopulmonary process within limitations of the exam. If clinical concern exists, two-vie w chest x-ray could be performed for further characterization.
--- NOTE | 2018-06-11 19:49 | CT ---
EXAM: CTA CHEST (PE PROTOCOL) HISTORY: Shortness of breath TECHNIQUE: CTA chest with intravenous contrast. Multiplanar images were provided with 3-D reconstru ctions. 75 mL Omnipaque. COMPARISON: 09/28/2017 and older exams including 04/09/2017 FINDINGS: There are large bilateral pulmonary arterial filling defects, greater on the left. The filling defec ts began at the distal aspects of the main pulmonary arteries and extend into the upper and lower lob es. There is at least mild atherosclerotic disease. Normal heart size. No pericardial effusion. Lungs reveal scattered small nodules in the lower right lung which appear grossly stable since at [facility] [facility] 04/09/2017, likely benign. There appears to be mild pulmonary vascular congestion. Questionable subtle central interstitial edema. No pneumothorax or pleural fluid. Mild reflux of contrast agent into the hepatic veins may indicate early right heart strain. Bones re veal moderate degenerative changes of the spine. Stabilization hardware of the cervical level of the spine. There is scoliosis. Enlarged thyroid gland is noted. Fatty liver with early cirrhotic arch itecture. IMPRESSION: 1. Large bilateral pulmonary emboli. There may be early right heart strain. This critical result w as called to the ordering physician Dr. Carlin at 7:40 p.m. on 06/11/2018. 2. Mild pulmonary vascular congestion. Questionable subtle central interstitial edema. 3. Stable right lung base pulmonary nodules, likely benign. 4. Diffusely enlarged thyroid. 5. Fatty cirrhotic appearing liver.
[2018-06-11] MEDS ORDERED: LOVENOX SUBCUT STA (19:54)
[2018-06-11 20:47] VITALS: TEMP 97.8
[2018-06-11 21:35] VITALS: BP 159/90
== END 2018-06-11 22:10 | disposition short-term general hospital (02) ==
LOC: ED 15:14
DX: I26.99 Other pulmonary embolism without acute cor pulmonale (principal); R06.02 Shortness of breath; E11.9 Type 2 diabetes mellitus without complications; J44.9 Chronic obstructive pulmonary disease, unspecified; Z85.038 Personal history of other malignant neoplasm of large intestine; Z86.73 Personal history of transient ischemic attack (TIA), and cerebral infarction without residual deficits; Z86.79 Personal history of other diseases of the circulatory system; Z87.440 Personal history of urinary (tract) infections
CPT/HCPCS: 36415; 80053; 82550; 82803; 83605; 83735; 84145; 84484; 85025; 87040; 87502; 87801; 93005; 93010; 96372; 99285

== ENCOUNTER 2018-07-16 15:28 | Outpatient (CLI) | END 2018-07-16 15:29 | disposition home or self-care (01) | LOC: RHC-LAB 15:28 → FCC-LAB 15:29 | PROVIDERS: ATTEND Nurse Practitioner Family | DX: I73.9 Peripheral vascular disease, unspecified (principal); D50.8 Other iron deficiency anemias; I27.20 Pulmonary hypertension, unspecified | CPT/HCPCS: 36415; 80053; 85025 ==

== ENCOUNTER 2018-12-01 19:19 | Outpatient (CLI) ==
[2018-12-01 15:29] VITALS: BMI 48.5
== END 2018-12-01 19:40 | disposition short-term general hospital (02) ==
LOC: AMBL 19:19
PROVIDERS: ATTEND Internal Medicine Geriatric Medicine
DX: R07.9 Chest pain, unspecified (principal); Z99.81 Dependence on supplemental oxygen

== ENCOUNTER 2018-12-08 12:08 | Emergency (ER) ==
[2018-12-08 12:14] VITALS: BP 156/78; TEMP 98.3; BMI 48.4
[2018-12-08] MEDS ORDERED: PHENERGAN 25 MG/ML VIAL IM STA (16:04)
--- NOTE | 2018-12-08 16:05 | ED.PDOC ---
General Stated Complaint: Nausea and diarrhea. Patient complains of nausea, vomiting, and diarrhea. Patient stated she had symptoms for 24 hours. Patient stated she has slight abdominal cramping with nausea and diarrhea. Patient stated she cannot keep any oral fluids. down. Time Seen by Physician: 16:00 Mode of Arrival: Walk-In Information Source: Patient Exam Limitations: Clinical condition Nursing and Triage Documentation Reviewed and Agree: Yes Does patient meet sepsis criteria?: No <KRISTI LYNCH - Last Filed: 12/08/18 20:49> System Inflammatory Response Syndrome: Not Applicable <DIMITRI BOWENS - Last Filed: 12/13/18 19:15> ED Provider: Dr. DIMITRI BOWENS Chief Complaint: Diarrhea Primary Care Provider: HUSSEIN JUDD Sepsis Protocol: For patient's 13 years and over: Temp is 96.8 and below OR 101 and greater Pulse >90 BPM Resp >20/minute Acutely Altered Mental Status Are patient's symptoms suggestive of a new infection, such as: -Pneumonia -Skin, Soft Tissue -Endocarditis -UTI -Bone, Joint Infection -Implantable Device -Acute Abdominal Infection -Wound Infection -Meningitis -Blood Stream Catheter Infection -Unknown GI Complaint Exam - Vomiting/Diarrhea Complaint/Exam Symptoms Are: Still present (Diarrhea still present but none in department) Episodes of Vomiting over last 24 Hours: 0 Episodes of Diarrhea Over Last 24 Hours: 5 Initial Severity: Moderate Current Severity: Moderate Character of Vomiting: Reports: Bilious Character of Diarrhea: Reports: Watery Aggravating: Reports: Food, Liquids Alleviating: Reports: None Associated Signs and Symptoms: Reports: Abdominal pain Related History: Denies: Similar episode Non-GI Risk Factors: Reports: None Surgical Obstruction Risk Factors: Reports: None Related Surgical History: Reports: None Abdominal Findings: Present: None Kussmaul Respirations Present: No Differential Diagnoses: Dehydration, Gastritis, Viral Gastroenteritis <KRISTI LYNCH - Last Filed: 12/08/18 20:49> Review of Systems - Review Of Systems Constitutional: Reports: Chills, Weakness Eyes: Reports: No symptoms Ears, Nose, Mouth, Throat: Reports: No symptoms Respiratory: Reports: No symptoms Cardiac: Reports: No symptoms GI: Reports: Abdominal pain, Diarrhea, Nausea, Poor appetite, Poor fluid intake : Reports: No symptoms Musculoskeletal: Reports: No symptoms Neurological: Reports: No symptoms Endocrine: Reports: No symptoms Hematologic/Lymphatic: Reports: No symptoms All Other Systems: Reviewed and Negative <KRISTI LYNCH - Last Filed: 12/08/18 20:49> Past Medical History - Past Medical History Previously Healthy: No (Numerous problems; vascular surgeries bilateral LEs) Endocrine: Reports: DM 2 Cardiovascular: Reports: Other (vascular insufficiency bilat LEs/DVT) Respiratory: Reports: None, COPD Hematological: Reports: None, Anemia Gastrointestinal: Reports: None, GERD Genitourinary: Reports: None, UTI Neuro/Psych: Reports: CVA Musculoskeletal: Reports: None Cancer: Reports: Colon Last Menstrual Period: none - Surgical History General Surgical History: Reports: Cholecystectomy, Unknown (Colon CA; multiple LE vascular surgeries) - Family History Family History: Reports: Unknown - Social History Smoking Status: Former smoker Hx Substance Use: No Alcohol Screening: None - Immunizations Tetanus Shot up to Date: No <KRISTI LYNCH - Last Filed: 12/08/18 20:49> Physical Exam - Physical Exam Appearance: Ill-appearing, Obese Ill-appearing: Moderate Pain Distress: Moderate Eyes: MILLIE, EOMI, Conjunctiva clear ENT: Ears normal, Nose normal, Oropharynx normal Neck: Supple Respiratory: Airway patent, Breath sounds clear, Breath sounds equal, Respirations nonlabored Cardiovascular: RRR, Pulses normal, No rub, No murmur GI/: Soft, Bowel sounds normal, No Organomegaly, Tender Musculoskeletal: Normal strength, ROM intact, No edema, No calf tenderness Skin: Warm, Dry, Normal color Neurological: Sensation intact, Motor intact, Reflexes intact, Cranial nerves intact, Alert, Oriented Psychiatric: Mood appropriate (flattened) <KRISTI LYNCH - Last Filed: 12/08/18 20:49> Interpretation - Radiology Interpretation Radiology Interpretation By: Radiologist Radiology Results: No acute changes (except 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.) Exam Interpreted: CT Scan <DIMITRI BOWENS - Last Filed: 12/13/18 19:15> Re-Evaluation - Re-Evaluation Time of Re-Evaluation: 18:45 Status: Unchanged, Worse (increased abdominal discomfort with generaltize tenderness without guarding or rebound) <KRISTI LYNCH - Last Filed: 12/08/18 20:49> Critical Care Note - Critical Care Note Total Time (mins): 30 <KRISTI LYNCH - Last Filed: 12/08/18 20:49> Course - Course Hematology/Chemistry: 12/08/18 16:15 12/08/18 16:15 <KRISTI LYNCH - Last Filed: 12/08/18 20:49> - Course Hematology/Chemistry: 12/08/18 16:15 12/08/18 16:15 <DIMITRI BOWENS - Last Filed: 12/13/18 19:15> - Course Orders, Labs, Meds: Lab Review 12/08/18 12/08/18 16:15 16:15 WBC 7.33 RBC 4.81 Hgb 14.8 Hct 43.4 MCV 90.2 MCH 30.8 MCHC 34.1 RDW Coeff of Cathy 11.4 L Plt Count 339 Immature Gran % (Auto) 0.5 Neut % (Auto) 50.6 Lymph % (Auto) 36.7 [place] % (Auto) 8.9 Eos % (Auto) 2.6 Baso % (Auto) 0.7 Immature Gran # (Auto) 0.0 Neut # (Auto) 3.7 Lymph # (Auto) 2.7 [place] # (Auto) 0.7 Eos # (Auto) 0.2 Baso # (Auto) 0.1 Sodium 137.1 Potassium 4.27 Chloride 101.1 Carbon Dioxide 32.1 H Anion Gap 8.17 BUN 15.7 Creatinine 0.97 Estimated GFR (MDRD) 59.00 BUN/Creatinine Ratio 16.18 Glucose 111.9 H Calcium 9.93 Total Bilirubin 0.34 AST 27.9 ALT 21.4 Alkaline Phosphatase 90.0 Total Protein 7.88 Albumin 4.29 Globulin 3.59 Albumin/Globulin Ratio 1.19 Amylase 71.4 Lipase 147.9 Orders Category Date Time Status INTAKE & OUTPUT Q8HR CARE 12/08/18 16:06 Active IV [ED IV/MEDIPORT/POWERPORT] .ONCE EMERGENCY 12/08/18 16:06 Active AMYLASE Stat LAB 12/08/18 16:15 Completed CBC W/ AUTO DIFF Stat LAB 12/08/18 16:15 Completed CMP [COMPREHENSIVE METABOLIC PANEL] Stat LAB 12/08/18 16:15 Completed LIPASE Stat LAB 12/08/18 16:15 Completed 0.9 % Sodium Chloride [Saline Flush] MEDS 12/08/18 16:07 Discontinued 1 syr IVF PRN PRN Dicyclomine Inj [Bentyl] MEDS 12/08/18 16:08 Discontinued 10 mg IM ONCE STA Promethazine HCl [Phenergan 25 mg/ml Vial] MEDS 12/08/18 16:04 Discontinued 25 mg IM ONCE STA Sodium Chloride 0.9% [Sodium Chloride] 1,000 ml MEDS 12/08/18 16:[address] ABDOMEN/PELVIS WO CONTRAST Stat RADS 12/08/18 20:06 Completed Medications Discontinued Medications Generic Name Dose Route Start Last Admin Trade Name Freq PRN Reason Stop Dose Admin Dicyclomine HCl 10 mg 12/08/18 16:08 12/08/18 16:17 Bentyl IM 12/08/18 16:09 10 mg ONCE STA Administration Sodium Chloride 1,000 mls @ 125 mls/hr 12/08/18 16:07 12/08/18 16:18 Sodium Chloride IV 12/09/18 00:06 125 mls/hr ONCE ONE Administration Promethazine HCl 25 mg 12/08/18 16:04 12/08/18 16:17 Phenergan 25 Mg/Ml Vial IM 12/08/18 16:05 25 mg ONCE STA Administration Sodium Chloride 1 syr 12/08/18 16:07 12/08/18 16:19 Saline Flush IVF 1 syr PRN PRN Administration To flush IV Vital Signs: Temp Pulse Resp BP Pulse Ox 12/08/18 12:09 98.3 F 79 20 156/78 H 93 L Departure <KRISTI LYNCH - Last Filed: 12/08/18 20:49> - Departure Time of Disposition: 21:21 Pt referred to PMD for follow-up: Yes IPMP verified?: No Disposition Discussed With: Patient <DIMITRI BOWENS - Last Filed: 12/13/18 19:15> - Departure Disposition: HOME SELF-CARE Discharge Problem: Gastroenteritis and colitis, viral Instructions: Gastroenteritis (ED) Condition: Good Additional Instructions: Follow up with PCP in 1-2 days Allergies/Adverse Reactions: Allergies Penicillins Allergy (Severe, Verified 12/08/18 14:43) throat swells Patient will notify drugstore Home Medications: Ambulatory Orders Ferrous Sulfate [Iron] 325 mg PO DAILY 01/29/18 Hydrocodone/Acetaminophen [Hydrocodon-Acetaminophn 10-325] 1 each PO TID PRN Polyethylene Glycol 3350 [Miralax] 17 gm PO DAILY #30 packet 06/22/18 Fluticasone/Vilanterol [Breo Ellipta Inhaler] 1 each IH DAILY 11/04/18 Furosemide [Lasix Tab] 40 mg PO QDAC 11/13/18
[2018-12-08] MEDS ORDERED: SODIUM CHLORIDE 1,000 ML IV ONE (16:07)
[2018-12-08] MEDS ORDERED: BENTYL IM STA (16:08)
--- NOTE | 2018-12-08 20:57 | CT ---
EXAM: CT scan of the abdomen and pelvis without contrast HISTORY: Worsening abdominal pain TECHNIQUE: Helical imaging of the abdomen and pelvis was performed without intravenous contrast. 2 mm thin axial images and coronal and sagittal reconstructions were provided for interpretation. Comparison 09/28/2017. FINDINGS: There has been previous cholecystectomy. Low density changes are seen throughout the pare nchyma of the liver. The spleen, pancreas, adrenal glands appear normal. The proximal ureters are n ormal size. The small and large bowel loops are normal caliber. There is no free air. The helical images obtained through the pelvis demonstrate a normal appearance of the rectum, urinary bladder. There is a calcified fibroid seen in the uterus. The appendix appears normal. There is s table appearance of fusiform aneurysmal dilatation of the right common femoral artery measuring up to 2.7 cm AP, 2.1 cm transverse. Lung bases are clear. No lytic or blastic lesions are seen within th e osseous structures. IMPRESSION: There is no bowel obstruction or acute inflammatory change seen within the abdomen and p helio. Fatty infiltration of the liver. 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 Fibroid infiltration of the uterus.
== END 2018-12-08 21:57 | disposition home or self-care (01) ==
LOC: ED 12:08
DX: A08.4 Viral intestinal infection, unspecified (principal); E11.9 Type 2 diabetes mellitus without complications; K21.9 Gastro-esophageal reflux disease without esophagitis; Z79.899 Other long term (current) drug therapy; Z87.440 Personal history of urinary (tract) infections; Z85.038 Personal history of other malignant neoplasm of large intestine; Z86.718 Personal history of other venous thrombosis and embolism; Z86.73 Personal history of transient ischemic attack (TIA), and cerebral infarction without residual deficits
CPT/HCPCS: 36415; 80053; 82150; 83690; 85025; 96360; 96361; 96372; 99284